=== PATIENT | female | born 1980 | race Caucasian/White ===

== ENCOUNTER 2017-06-27 21:59 | Emergency (ER) | payer OTHER, MEDICAID, SELFPAY ==
[2017-06-27 22:00] VITALS: BP 138/85; PULSE 84; RESP 16; TEMP 36.8; O2SAT 98; BMI 30.9
--- NOTE | 2017-06-27 22:15 | CT_ITS ---
STUDY: CT CERVICAL SPINE WITHOUT CONTRAST REASON FOR EXAM: Female, 37 years old. Head injury RADIATION DOSAGE (If Supplied By Facility): CTDIvol = ( 29.96 ) mGy, DLP = ( 559.21 ) mGycm TECHNIQUE: High resolution transaxial imaging was performed without contrast material. Sagittal and coronal images were reconstructed. Individualized dose optimization techniques were used for this CT. COMPARISON: None FINDINGS: Normal craniovertebral junction. Normal anterior atlantoaxial articulation. Normal odontoid process. There is straightening of the normal cervical lordosis. C2-3: Normal endplates. Normal disc height and morphology. Normal central canal and intervertebral neuroforamina. C3-4: Normal endplates. Normal disc height and morphology. Normal central canal and intervertebral neuroforamina. C4-5: Normal endplates. Normal disc height and morphology. Normal central canal and intervertebral neuroforamina. C5-6: Normal endplates. Normal disc height and morphology. Normal central canal and intervertebral neuroforamina. C6-7: Normal endplates. Normal disc height and morphology. Normal central canal and intervertebral neuroforamina. C7-T1: Normal endplates. Normal disc height and morphology. Normal central canal and intervertebral neuroforamina. The lung apices are clear. The thyroid is within normal limits. CT/Spine Cervical without Contras IMPRESSION: No acute abnormalities are seen in the cervical spine. Electronically Signed: Keesha Gonzalez MD at 22:58 EST Tel Direct: [phone], Service support ,
--- NOTE | 2017-06-27 22:15 | CT_ITS ---
STUDY: CT BRAIN WITHOUT CONTRAST REASON FOR EXAM: Female, 37 years old. Head injury RADIATION DOSAGE (If Supplied By Facility): CTDIvol = ( 44.99 ) mGy, DLP = ( 728.62 ) mGycm TECHNIQUE: Transaxial CT imaging of the brain was performed without administration of intravenous contrast material. Individualized dose optimization techniques were used for this CT. COMPARISON: None. FINDINGS: There is a small soft tissue defect in the right frontal region. The osseous structures are unremarkable. Normal size ventricles and extra-axial spaces for the patient's age. The white matter tracts are unremarkable. The basal ganglia and thalami are unremarkable. No abnormalities are seen in the brainstem. The cerebellum is unremarkable. There is no intracranial hemorrhage. There are no findings of acute ischemia. The visualized sinuses are unremarkable. CT/Brain/Head without Contrast IMPRESSION: No acute intracranial abnormalities. There is a small soft tissue defect in the right frontal region without underlying fracture. Electronically Signed: Keesha Gonzalez MD at 22:55 EST Tel Direct: [phone], Service support ,
--- NOTE | 2017-06-27 22:31 | ED.DCSUM_ITS ---
- ER Visit Summary Date of Service: 06/27/17 Chief Complaint: Fall, head injury History of Present Illness: The patient is a 37 F presents for evaluation mechanical fall occurring 1:30 PM, 8 hours ago. Patient was on top of the steps going to the basement, she remembers tripping, 15 minutes later she awakened. Complains of headache and neck pain. No arm weakness or paresthesias. No anticoagulation medications. The nausea and vomiting ?1 today. Patient does have history of grand mal seizures states she is currently off medications. She denies any seizure activity. No tongue abrasion. There is no incontinence of urine or stools. Denies any back pain, chest pain, abdominal pain. States she feels like her head is underwater, also states she has little balance issues with walking. Physical Examination: General: Alert and oriented ?3, no acute distress HEENT: Normocephalic, contusion left upper forehead, small abrasion with no active bleeding. No hemotympanum. Moist mucosa membranes Neck: supple, no midline tenderness. There is paracervical tenderness. Cardiovascular: Regular rate and rhythm, no murmurs Respiratory: Normal breath sounds, symmetric, no distress Back: No midline tenderness. Abdomen: Soft, nontender, nondistended Extremities: Nontender, no edema, pulses intact ?4 Neuro: no focal neurological deficits. Cranial nerves II through XII intact. Test Results: CT head and neck: No acute process. Soft tissue swelling left forehead. Emergency Department Course and Treatment: Patient head injury, secondary to mechanism and loss of consciousness. CT head and neck was obtained. Negative. Treated with Tylenol and Zofran for symptoms. Discussed concussion precautions and brain rest. She will continue Tylenol follow-up with her PCP if symptoms persist. Treatment Plan: Concussion precautions Disposition: Discharge Impression: 1. Concussion with loss of consciousness 2. Cervical neck strain 3. Forehead contusion This note was generated with [employer] dictation software. It may contain incorrect words, spelling, and punctuation that were not noted in review of the chart prior to signing ED Disposition - Plan for ED Patient: Disposition: Home or Assisted Living Chief Complaint: Head Injury Diagnosis: Concussion with loss of consciousness <= 30 min, Neck strain, Forehead contusion Instructions: ED Concussion, ED Contusion Face Prescriptions: Ondansetron [Zofran Odt] 8 mg PO Q8H PRN PRN #10 PRN Reason: Nausea Referrals: Leena Sena [Primary Care Provider] - 5-7 Days
[2017-06-27] MEDS: Acetaminophen 500 MG Tablet 1000 MG PO (23:41)
[2017-06-27] MEDS: Ondansetron ODT 4 MG Tablet 8 MG PO (23:41)
[2017-06-27 23:42] VITALS: PULSE 70; O2SAT 98
== END 2017-06-27 23:43 | disposition home or self-care (01) ==
PROVIDERS: Emergency Provider Emergency Medicine; Family Provider Family Medicine; PCP Family Medicine
DX: S06.0X1A Concussion with loss of consciousness of 30 minutes or less, initial encounter (principal); S16.1XXA Strain of muscle, fascia and tendon at neck level, initial encounter; S00.83XA Contusion of other part of head, initial encounter; S00.81XA Abrasion of other part of head, initial encounter; R40.2410 Glasgow coma scale score 13-15, unspecified time; G40.409 Other generalized epilepsy and epileptic syndromes, not intractable, without status epilepticus; Z86.69 Personal history of other diseases of the nervous system and sense organs; W19.XXXA Unspecified fall, initial encounter; Y93.9 Activity, unspecified; Y92.9 Unspecified place or not applicable; Z90.89 Acquired absence of other organs; Z90.49 Acquired absence of other specified parts of digestive tract; Z72.0 Tobacco use
CPT/HCPCS: 70450; 72125; 99283

== ENCOUNTER 2017-07-11 20:09 | Emergency (ER) | payer OTHER, MEDICAID, SELFPAY ==
[2017-07-11 20:10] VITALS: BP 161/102; PULSE 117; RESP 24; TEMP 36.1; O2SAT 99; BMI 32.2
--- NOTE | 2017-07-11 20:28 | CT_ITS ---
STUDY: CT BRAIN WITHOUT CONTRAST REASON FOR EXAM: Female, 37 years old. Headache, neck pain. RADIATION DOSAGE (If Supplied By Facility): CTDIvol = ( 44.99 ) mGy, DLP = ( 782.05 ) mGycm TECHNIQUE: Transaxial CT imaging of the brain was performed without administration of intravenous contrast material. Individualized dose optimization techniques were used for this CT. COMPARISON: [address] head FINDINGS: Normal soft tissue structures. Normal calvarium. Normal size ventricles and extra-axial spaces for the patient's age. Normal white matter tracts of the cerebral hemispheres. Normal basal ganglia and thalami. Normal brainstem. Normal cerebellum. There is no intracranial hemorrhage. There are no findings of an acute ischemic infarction. Normal visualized paranasal sinuses. CT/Brain/Head without Contrast IMPRESSION: No evidence of acute intracranial bleed, mass or ischemia. Electronically Signed: Miguel Holley DO at 21:32 EDT , Service support ,
[2017-07-11] MEDS: Ketorolac 30 MG/ML Syringe IV (20:51)
[2017-07-11] MEDS: proCHLORPERazine 10 MG/2 ML Vial IV (20:51)
[2017-07-11] MEDS: 0.9% Normal Saline 1,000 ML 999 ML IV (20:51)
[2017-07-11] MEDS: DiphenhydrAMINE 50 MG/ML Syringe 25 MG IV (20:51)
--- NOTE | 2017-07-11 22:22 | ED.DCSUM_ITS ---
- ER Visit Summary Date of Service: 07/11/17 Chief Complaint: Head and neck pain History of Present Illness: The patient is a 37 F who reports waking yesterday morning with left-sided head pain. Last evening she is complaining of neck pain and now has diffuse headache throughout. She does report blurry vision and seeing colors in her vision. She has photophobia. She reports having intermittent left hand numbness and states that neck pain is worse on the left side. Patient does have a history of migraines but states this is not quite consistent with her normal migraine. She was also seen here in June 27 after fall down a flight of steps and had an head and neck injury that time. Physical Examination: Vital signs are significant for blood pressure 161/102 and heart rate 117. Patient's lying in a darkened room. She appears uncomfortable but no acute distress. Head neck examination reveals no obvious external sign of trauma. She has reproducible tenderness in the musculature on the posterior neck. No significant midline tenderness. Heart is slightly tachycardic and rhythm. Lung sounds are clear. Abdomen is soft nontender. Neuro exam is unremarkable with no focal deficits. Test Results: CT scan of the head is unremarkable. Emergency Department Course and Treatment: Patient is given Toradol, Compazine, Benadryl, and IV fluids. On repeat evaluation she has been sleeping comfortably. She easily awakens and does report significant improvement in her symptoms. She will be discharged home with family at this time. Treatment Plan: [] Disposition: Discharge Impression: Migraine, improved This note was generated with [employer] dictation software. It may contain incorrect words, spelling, and punctuation that were not noted in review of the chart prior to signing ED Disposition - Plan for ED Patient: Chief Complaint: Headache Referrals: Leena Sena [Primary Care Provider] -
--- NOTE | 2017-07-11 22:22 | ED.DEP ---
ED Disposition - Plan for ED Patient: Disposition: Home or Assisted Living Chief Complaint: Headache Instructions: ED Headache Migraine Referrals: Leena Sena [Primary Care Provider] - As Needed
[2017-07-11 22:43] VITALS: BP 101/66; PULSE 74; RESP 16; O2SAT 98
== END 2017-07-11 22:44 | disposition home or self-care (01) ==
PROVIDERS: Emergency Provider Emergency Medicine; Family Provider Family Medicine; PCP Family Medicine
DX: G43.909 Migraine, unspecified, not intractable, without status migrainosus (principal); R20.0 Anesthesia of skin; R20.2 Paresthesia of skin; R50.9 Fever, unspecified; E66.9 Obesity, unspecified; G40.909 Epilepsy, unspecified, not intractable, without status epilepticus; Z72.0 Tobacco use
CPT/HCPCS: 70450; 96361; 96374; 96375; 99284; J7030; A4216

== ENCOUNTER 2017-07-24 06:28 | Emergency (ER) | payer OTHER, MEDICAID, SELFPAY ==
[2017-07-24 06:29] VITALS: BP 122/67; PULSE 73; RESP 18; TEMP 36.8; O2SAT 100; BMI 36.9
--- NOTE | 2017-07-24 06:40 | ED.VISSUMM ---
- ER Visit Summary Date of Service: 07/24/17 Chief Complaint: Unilateral throbbing headache History of Present Illness: The patient is a 37 F who presents with her typical headache. She does complain of photophobia and sonophobia. She also complains of nausea. She denies fever, chills night sweats. She reports double vision. She denies any blurred, change or loss of vision. She denies neck pain or stiffness. She denies chest pain, palpitations or rapid heart rate. She denies difficulty breathing, wheezing, shortness of breath or dyspnea on exertion. GI is positive for nausea otherwise unremarkable. She denies dysuria, frequency, urgency or hematuria. She denies any rash or skin lesions. She denies problems with balance or walking. She denies any motor or sensory deficit. Please read written note. Physical Examination: Vital signs are normal. She is afebrile. Head is atraumatic normocephalic. Pupils are equal round reactive. Extraocular muscles are intact. TMs are pearly white with landmarks noted. Nares patent with no drainage. Posterior pharynx without erythema or exudate. Uvula is midline. There is no dysphonia or dysphasia. Trachea is midline. There is no stridor with auscultation of the neck. Heart is regular without murmur, gallop or rub. S1 and S2 are normal. Lungs are clear to auscultation with good movement of air bilaterally. Abdomen soft nontender. Patient is alert and oriented ?3. Motor is 5 over 5. Sensory is intact. DTRs are symmetric with no clonus or Babinski sign. Cranial 2 through 12 are intact. Cerebellar testing is normal. Patient voices frustration because she cannot take Topamax and her physician is located in [place]. Test Results: None were obtained Emergency Department Course and Treatment: IV was established 30 mg of Toradol, 25 mg Benadryl and 10 mg of Reglan were ordered. I was informed that there is a shortage of Reglan and there is no Reglan available in the hospital. The order with ischemic insult and she was treated with 2 mg of Haldol IV push. Patient was reassessed at 0700. She reports improvement. She received her medications approximately 10-15 minutes ago. Reassess again at 0730. Treatment Plan: To be discharged to home once headache has improved moderate to significantly. Disposition: Pending reevaluation by Dr. Will Morgan at 0730 Impression: Unilateral throbbing headache, migraine This note was generated with [employer] dictation software. It may contain incorrect words, spelling, and punctuation that were not noted in review of the chart prior to signing ED Disposition - Plan for ED Patient: Disposition: Home or Assisted Living Chief Complaint: Headache Instructions: ED Headache Migraine Referrals: Leena Sena [Primary Care Provider] - 3-5 Days Additional Instructions: You need to follow-up with your doctor to discuss treatment plan to prevent migraine headaches.
[2017-07-24] MEDS: 0.9% Normal Saline 1,000 ML 999 ML IV (06:43)
[2017-07-24] MEDS: Haloperidol Lactate 5 MG/ML Vial 2 MG IV (06:43)
[2017-07-24] MEDS: Ketorolac 30 MG/ML Syringe IV (06:44)
[2017-07-24] MEDS: DiphenhydrAMINE 50 MG/ML Syringe 25 MG IV (06:44)
--- NOTE | 2017-07-24 06:52 | NURSING ---
A SECOND TORADOL WAS PULLED OUT OF THE ACCUDOSE THE OTHER DOSE WAS WASTED PLUNGER FELL OUT OF THE SYRINGE AND MEDICATION WAS LOST.
== END 2017-07-24 08:05 | disposition home or self-care (01) ==
PROVIDERS: Emergency Provider Emergency Medicine; Family Provider Family Medicine; PCP Family Medicine
DX: G43.909 Migraine, unspecified, not intractable, without status migrainosus (principal); Z72.0 Tobacco use
CPT/HCPCS: 96361; 96374; 96375; 99284; J7030; A4216

== ENCOUNTER 2017-10-29 17:22 | Emergency (ER) | payer OTHER, MEDICAID, SELFPAY ==
[2017-10-29 17:23] VITALS: BP 120/68; PULSE 83; RESP 14; TEMP 36.4; O2SAT 98; BMI 39.7
--- NOTE | 2017-10-29 18:10 | ED.DCSUM_ITS ---
- ER Visit Summary Date of Service: 10/29/17 Chief Complaint: Headache History of Present Illness: The patient is a 37 F presenting with migraine headache ?4 days. Headache was gradual in onset. She has a history of migraine headaches and seizures. She has been having more frequent seizures as well. She is scheduled to see a new neurologist in November. She is on lamictal for her seizures. She states she also frequently has nosebleeds with her seizures and migraines. No active bleeding currently. No recent trauma. No fever or other complaints. Physical Examination: Vitals are stable. Patient is afebrile. Alert no acute distress. HEENT exam is unremarkable. Neck is supple. No meningismus Lungs are clear and equal bilaterally. Heart is regular rate and rhythm. Abdomen is soft nontender nondistended. Extremities are unremarkable. Skin is warm and dry. No focal neurologic deficit. Remainder of exam is unremarkable. Emergency Department Course and Treatment: Patient was given Compazine, Benadryl IV. CBC, chemistries are unremarkable. Lamictal level was sent and is pending. On repeat evaluation, patient is resting comfortably. She states her headache is much improved. Patient is advised to follow-up with Dr. Jones. She is advised to return to ED for any worsening complaints. Disposition: Discharged home Impression: Migraine headache, seizure disorder This note was generated with [employer] dictation software. It may contain incorrect words, spelling, and punctuation that were not noted in review of the chart prior to signing ED Disposition - Plan for ED Patient: Chief Complaint: Headache Instructions: ED Headache Migraine Referrals: Akshat Angel MD [STAFF PHYSICIAN] - Conrad Jones MD [STAFF PHYSICIAN] - NOT,DEFINED [NON-STAFF] -
[2017-10-29] MEDS: DiphenhydrAMINE 50 MG/ML Syringe 25 MG IV (18:12)
[2017-10-29] MEDS: proCHLORPERazine 10 MG/2 ML Vial IV (18:12)
[2017-10-29] MEDS: 0.9% Normal Saline 1,000 ML 150 ML IV (18:17)
[2017-10-29 18:28] LABS: Absolute Lymphocyte Count 3.34 X10^3/ul (0.83-4.51); Absolute Neutrophil Count 5.4 X10^3/uL (2.0-7.7); Basophil# 0.01 X10^3/uL; Basophil% 0.1 % (0-1); Eosinophil# 0.11 X10^3/uL; Eosinophils% 1.2 % (0-5); Hematocrit 35.6 % (37-47); Hemoglobin 11.3 g/dl (12.0-15.0); Lymphocyte # 3.34 X10^3/ul (4.0); Lymphocyte % 35.8 % (19-41); Mean Corp Hgb Conc 31.7 g/gl (32-36); Mean Corpuscular Hgb 30.4 pg (27.0-32.0); Mean Corpuscular Volume 95.7 fL (81-99); Mean Platelet Vol. 9.8 fl (6.2-12.0); Monocyte# 0.42 X10^3/uL; Monocyte% 4.5 % (0-10); Neutrophil # 5.42 X10^3/uL (2.7-7.7); Neutrophil % 58.2 % (47-70); Platelet Count 297 K/mm3 (150-450); RBC Distribution Width CV 13.3 % (11.6-14.6); RBC Distribution Width SD 46.8 fl (35.1-43.9); Red Blood Count 3.72 M/mm3 (4.2-5.4); White Blood Count 9.3 K/mm3 (4.4-11.0)
[2017-10-29 18:39] LABS: POSITIVE COUNT NO; POSITIVE DIFFERENTIAL NO; POSITIVE MORPHOLOGY NO
[2017-10-29 18:40] LABS: Anion Gap 6 (5-15); BUN 11 mg/dL (7-18); BUN/Creat Ratio 13.4 RATIO (10-20); Calcium,Total 8.6 mg/dL (8.5-10.1); Chloride 111 mmol/L (98-107); Creatinine, Serum 0.82 mg/dL (0.55-1.02); EST Glomerular Filtration Rate 83 mL/min (>60); Est Glom Filt Rate - Afr Amer 100 mL/min (>60); Estimated Creatinine Clearance 76.19 ml/min; Glucose 85 mg/dL (74-106); Potassium 3.8 mmol/L (3.5-5.1); Sodium Level 145 mmol/L (136-145)
--- NOTE | 2017-10-29 19:18 | ED.DEP ---
ED Disposition - Plan for ED Patient: Chief Complaint: Headache Instructions: ED Headache Migraine Referrals: NOT,DEFINED [NON-STAFF] - Conrad Jones MD [STAFF PHYSICIAN] - Akshat Angel MD [STAFF PHYSICIAN] -
[2017-10-29 19:24] VITALS: BP 131/80; BP 132/70; PULSE 80; RESP 14; O2SAT 98
== END 2017-10-29 19:54 | disposition home or self-care (01) ==
LOC: ED 18:17
PROVIDERS: Emergency Provider Emergency Medicine; Family Provider Family Medicine; PCP Family Medicine
DX: G43.909 Migraine, unspecified, not intractable, without status migrainosus (principal); G40.909 Epilepsy, unspecified, not intractable, without status epilepticus; Z79.899 Other long term (current) drug therapy
CPT/HCPCS: 80048; 82542; 85025; 96361; 96374; 96375; 99284; J7030

== ENCOUNTER 2017-10-31 13:55 | Emergency (ER) | payer OTHER, MEDICAID, SELFPAY ==
[2017-10-31 13:56] VITALS: BP 150/83; PULSE 84; RESP 16; TEMP 36.9; O2SAT 98; BMI 32.2
--- NOTE | 2017-10-31 14:18 | EKG12_ITS ---
Test Reason : HEADACHE Blood Pressure : / mmHG Vent. Rate : 071 BPM Atrial Rate : 071 BPM P-R Int : 152 ms QRS Dur : 082 ms QT Int : 392 ms P-R-T Axes : 031 061 053 degrees QTc Int : 425 ms Normal sinus rhythm Normal ECG Confirmed by MAKENZIE SY, CHARLES ([id number]), editor trade journal DAMIEN HORAN ([id number]) on 11/02/2017 2:29:29 PM Referred By: NANCI Confirmed By:CHARLES BANEGAS MD
--- NOTE | 2017-10-31 14:21 | ED.RN ---
NO OLD EKG
[2017-10-31] MEDS: Ketorolac 30 MG/ML Syringe IV (14:27)
[2017-10-31] MEDS: 0.9% Normal Saline 1,000 ML 999 ML IV (14:27)
[2017-10-31] MEDS: Dihydroergotamine 1 MG/ML Ampul IV (15:34)
--- NOTE | 2017-10-31 16:05 | ED.VISSUMM ---
- ER Visit Summary Date of Service: 10/31/17 Chief Complaint: Headache History of Present Illness: The patient is a 37 F presenting for evaluation secondary to headache. Patient has an underlying history of migraines. She reports that over the course last 6 days she has had a persistent migraine. This is consistent with prior headaches, it has been frontal throbbing and has been worse with light exposure. Patient does endorse nausea. Patient was seen in the emergency department for this 2 days ago, she received Compazine and states that she had some improvement of her pain but had some akathisia. Patient denies that she had any recent head injuries fevers neck stiffness or skin rashes. Review of systems otherwise negative. Physical Examination: Vital signs: Within normal limits General: Well-nourished well-developed no acute distress Head: Normocephalic atraumatic, no temporal artery tenderness or vesicular rash noted. No sinus tenderness to percussion. Eyes: PERRLA, EOMI. Direct funduscopy unable to be performed due to photophobia Neck: Supple, no lymphadenopathy, no JVD no meningismus. Negative Brudzinski, Kernig, jolt, and heel strike Cardiovascular: Heart regular rate and rhythm no murmurs Respiratory: Lung sounds clear to auscultation bilaterally no respiratory distress Abdomen: Soft, nontender Extremities: Nontender, no edema Skin: Normal color, no rash, no evidence of petechia Neuro: Alert and oriented ?4, cranial nerves II through XII intact, normal strength, sensation Test Results: EKG demonstrates sinus rhythm at [address] segments normal T waves no evidence of acute ischemia or arrhythmia Emergency Department Course and Treatment: Patient presented with an intractable migraine headache. Initial attempts were made with Toradol and fluids, the patient did not have any sort of improvement. An EKG was normal so the patient was given 1 mg of IV dihydroergotamine. Repeat evaluation at 1600 showed the patient to have almost complete resolution of her headache. She was given a dose of steroids to prevent bounce back of her headache. Patient has very frequent headaches states that she is getting them up to 3 and 4 times a day. I will place the patient on a starting dose of Topamax. She has follow-up coming with a neurologist, she will keep this appointment. Patient was discharged. Disposition: Discharge Impression: 1. Migraine headache with status migrainosus, not intractable This note was generated with [employer] dictation software. It may contain incorrect words, spelling, and punctuation that were not noted in review of the chart prior to signing ED Disposition - Plan for ED Patient: Disposition: Home or Assisted Living Chief Complaint: Headache Diagnosis: Migraine Instructions: ED Headache Migraine Prescriptions: Topiramate [Topamax] 25 mg PO DAILY #30 tab Referrals: Geraldo Nj MD [STAFF PHYSICIAN] - Keep Starla appointment
[2017-10-31 16:16] VITALS: BP 116/71; PULSE 64; RESP 17; O2SAT 97
[2017-10-31] MEDS: Triamcinolone Acetonide 40 MG/ML Vial IM (16:29)
== END 2017-10-31 16:49 | disposition home or self-care (01) ==
PROVIDERS: Emergency Provider Emergency Medicine; Family Provider Family Medicine; PCP Family Medicine
DX: G43.909 Migraine, unspecified, not intractable, without status migrainosus (principal)
CPT/HCPCS: 93005; 96361; 96372; 96374; 96375; 99283; J7030; A4216; J1110

== ENCOUNTER 2017-11-03 08:51 | Emergency (ER) | payer OTHER, MEDICAID, SELFPAY ==
[2017-11-03 08:52] VITALS: BP 129/81; PULSE 73; RESP 16; TEMP 36.6; O2SAT 98; BMI 35.1
--- NOTE | 2017-11-03 09:41 | ED.DCSUM_ITS ---
- ER Visit Summary Date of Service: 11/03/17 Chief Complaint: Sharp throbbing unilateral headache History of Present Illness: The patient is a 37 F who has a history of seizures and migraine headaches presents with a sharp throbbing right-sided headache that is associated with nausea and vomiting. She does report photophobia. She denies fever, chills night sweats. She denies loss of vision or double vision. Denies trouble with speech or swallowing. She denies paresthesia, anesthesia motor weakness upper or lower extremity. She denies problems with balance or walking. She denies any neck stiffness. She is on no anticoagulants. Physical Examination: Vital signs are unremarkable. BMI is 35.1. Head is atraumatic normocephalic. Pupils equal round reactive. Extraocular muscle intact. Sclerae anicteric. Conjunctive is pink. Funduscopic exam reveals no papilledema. TMs normal. Nares patent with no discharge. Uvula is midline without erythema or exudate. Neck is supple. Trachea is midline. Heart is regular without murmur, gallop or rub. S1 and S2 are normal. Lungs are clear to auscultation with good movement of air bilaterally. Patient is alert and oriented ?3. Motor is 5 over 5. Sensory is intact. DTRs are symmetric with no clonus or Babinski sign. Cranial 2 through 12 are intact. Cerebellar testing is normal. Test Results: None were obtained Emergency Department Course and Treatment: IV was established and patient was medicated with 25 mg of Benadryl IV push, 30 mg of Toradol IV push followed by 10 mg of Reglan IV push. Went to evaluate patient's headache at 0935. IV was not placed and she has not received any of her meds. Patient was reassessed at 1013. She reports no improvement. 500 mg of Depakote was ordered. Treatment Plan: Patient was reassessed after Depakote infused. She reports improvement. Disposition: Discharged home in stable and improved condition Impression: Migraine headache This note was generated with [employer] dictation software. It may contain incorrect words, spelling, and punctuation that were not noted in review of the chart prior to signing ED Disposition - Plan for ED Patient: Disposition: Home or Assisted Living Chief Complaint: Headache Referrals: Leena Sena DO [Primary Care Provider] - As Needed Additional Instructions: Contact your insurance carrier to determine local physician on your insurance panel. Keep appointment with Dr. Nj.
[2017-11-03] MEDS: Ketorolac 30 MG/ML Syringe IV (09:53)
[2017-11-03] MEDS: DiphenhydrAMINE 50 MG/ML Syringe 25 MG IV (09:53)
--- NOTE | 2017-11-03 12:13 | ED.VISSUMM ---
- ER Visit Summary Date of Service: 11/03/17 Chief Complaint: [] History of Present Illness: The patient is a 37 F [] Physical Examination: [] Test Results: [] Emergency Department Course and Treatment: [] Treatment Plan: [] Disposition: [] Impression: [] This note was generated with [employer] dictation software. It may contain incorrect words, spelling, and punctuation that were not noted in review of the chart prior to signing ED Disposition - Plan for ED Patient: Disposition: Home or Assisted Living Chief Complaint: Headache Instructions: ED Headache Migraine Referrals: Leena Sena DO [Primary Care Provider] - As Needed Additional Instructions: Contact your insurance carrier to determine local physician on your insurance panel. Keep appointment with Dr. Nj.
--- NOTE | 2017-11-03 12:21 | ED.DCSUM_ITS ---
- ER Visit Summary Date of Service: 11/03/17 Chief Complaint: [] History of Present Illness: The patient is a 37 F [] Physical Examination: [] Test Results: [] Emergency Department Course and Treatment: [] Treatment Plan: [] Disposition: [] Impression: [] This note was generated with [employer] dictation software. It may contain incorrect words, spelling, and punctuation that were not noted in review of the chart prior to signing ED Disposition - Plan for ED Patient: Disposition: Home or Assisted Living Chief Complaint: Headache Instructions: ED Headache Migraine Referrals: Leena Sena DO [Primary Care Provider] - As Needed Additional Instructions: Contact your insurance carrier to determine local physician on your insurance panel. Keep appointment with Dr. Nj.
[2017-11-03 12:24] VITALS: BP 103/74; PULSE 58; RESP 16; O2SAT 100
== END 2017-11-03 12:26 | disposition home or self-care (01) ==
PROVIDERS: Emergency Provider Emergency Medicine; Family Provider Family Medicine; PCP Family Medicine
DX: G43.909 Migraine, unspecified, not intractable, without status migrainosus (principal); G40.909 Epilepsy, unspecified, not intractable, without status epilepticus; Z79.899 Other long term (current) drug therapy
CPT/HCPCS: 96365; 96375; 99284; J7030; A4216

== ENCOUNTER 2017-12-20 10:04 | Emergency (ER) | payer OTHER, MEDICAID, SELFPAY ==
[2017-12-20 10:05] VITALS: BP 133/76; PULSE 71; RESP 18; TEMP 36.1; O2SAT 98; BMI 41.5
--- NOTE | 2017-12-20 10:14 | ED.RN ---
PT SITTING IN CHAIR. STATES I AM GOING TO HAVE A SEIZURE. WHEN ASKED PT ABLE TO SIT SELF ON FLOOR. PT MOVED TO ROOM
--- NOTE | 2017-12-20 10:23 | ED.DCSUM_ITS ---
- ER Visit Summary Date of Service: 12/20/17 Chief Complaint: Migraine headache History of Present Illness: The patient is a 37 F history of seizures and migraine headaches. States she has had a migraine headache since yesterday. Associated with nausea. No vomiting. No diarrhea. Positive for photo and sonophobia. No fever. No sinusitis. No trauma or any blood thinners. Patient 's had headaches like this before. She describes as migraine as left-sided headache behind her left eye and top of her head. She denies any weakness or visual change. Physical Examination: Middle-aged female vital signs are stable afebrile. She does not look septic or toxic. She is in no acute distress. She does have her eyes covered with a towel. HEENT exam unremarkable. Neck nontender no lymphadenopathy. Pupils are round reactive light. Extra motions are intact. Normal speech. No facial droop. No meningismus able to touch her chin to chest. Lungs clear to auscultation bilaterally. Heart regular rhythm no murmur. Abdomen is soft and nontender. Normal bowel sounds. No peritoneal signs. Moving all 4 extremities. Neurovascular intact. Neurological exam is normal. No deficits. 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 Fingertip to nose within normal limits. Dorsi and plantar flexion intact. Neuro exam within normal limits. Test Results: None Emergency Department Course and Treatment: Patient treated with 1 L normal saline IV fluids with IV Toradol, Phenergan and Benadryl. Repeat exam neurologic exam remains normal is resolving. She feels comfortable being discharged home. Treatment Plan: Discharged to home. Disposition: Discharge Impression: Acute migraine headache This note was generated with [employer] dictation software. It may contain incorrect words, spelling, and punctuation that were not noted in review of the chart prior to signing ED Disposition - Plan for ED Patient: Disposition: Home or Assisted Living Chief Complaint: Headache Instructions: ED Headache Migraine Referrals: Leena Sena DO [Primary Care Provider] - As Needed Additional Instructions: Money of fluids and rest. Tylenol and Motrin for headaches. Follow-up your primary care physician or provider as needed.
[2017-12-20] MEDS: 0.9% Normal Saline 1,000 ML 1000 ML IV (10:30)
[2017-12-20] MEDS: DiphenhydrAMINE 50 MG/ML Syringe 25 MG IV (10:31)
[2017-12-20] MEDS: Ketorolac 30 MG/ML Syringe IV (10:31)
[2017-12-20] MEDS: proMETHazine 25 MG/ML Syringe 12.5 MG IV (10:31)
--- NOTE | 2017-12-20 11:14 | ED.DEP ---
ED Disposition - Plan for ED Patient: Disposition: Home or Assisted Living Chief Complaint: Headache Instructions: ED Headache Migraine Referrals: Leena Sena DO [Primary Care Provider] - As Needed Additional Instructions: Plenty of fluids and rest. Tylenol and Motrin for headaches. Follow-up your primary care physician or provider as needed.
[2017-12-20 11:19] VITALS: BP 132/78; PULSE 79; RESP 14; O2SAT 99
== END 2017-12-20 11:22 | disposition home or self-care (01) ==
LOC: ED 10:42
PROVIDERS: Emergency Provider Emergency Medicine; Family Provider Family Medicine; PCP Family Medicine
DX: G43.909 Migraine, unspecified, not intractable, without status migrainosus (principal); G40.909 Epilepsy, unspecified, not intractable, without status epilepticus; Z90.49 Acquired absence of other specified parts of digestive tract; Z79.899 Other long term (current) drug therapy; F17.200 Nicotine dependence, unspecified, uncomplicated
CPT/HCPCS: 96361; 96374; 96375; 99283; J7030; A4216

== ENCOUNTER 2018-01-03 10:34 | Emergency (ER) | payer OTHER, MEDICAID, SELFPAY ==
[2018-01-03 10:34] VITALS: BP 151/91; PULSE 90; RESP 16; TEMP 36.9; O2SAT 97; BMI 38.5
[2018-01-03] MEDS: 0.9% Normal Saline 1,000 ML 999 ML IV (11:09)
[2018-01-03] MEDS: Dihydroergotamine 1 MG/ML Ampul IV (11:09)
--- NOTE | 2018-01-03 12:01 | ED.DEP ---
ED Disposition - Plan for ED Patient: Chief Complaint: Seizure Instructions: ED Cephalgia Unspecified Referrals: Leena Sena DO [Primary Care Provider] -
--- NOTE | 2018-01-03 12:03 | ED.VISSUMM ---
- ER Visit Summary Date of Service: 01/03/18 Chief Complaint: Headache History of Present Illness: The patient is a 37 F presenting with headache that started 3 days ago. Headache was gradual in onset. Similar to her previous migraine headaches. She states she had 3 seizures yesterday and one seizure today. She states it is not uncommon for her to have seizures associated with her migraine headache. She is on Lamictal and Topamax. She sees Dr. Nj. She denies fever. Denies nausea or vomiting. Denies recent trauma. Denies other complaints. Physical Examination: Vitals are stable. Patient is afebrile. Alert no acute distress. HEENT exam is unremarkable. Neck is supple. Lungs are clear and equal bilaterally. Heart is regular rate and rhythm. Abdomen is soft nontender nondistended. Extremities are unremarkable. Skin is warm and dry. No focal neurologic deficit. Remainder of exam is unremarkable. Emergency Department Course and Treatment: Patient is given IV fluids, DHE. She has improvement of her headache. She will follow-up with her neurologist. She is advised to return to the ED for any worsening complaints Disposition: Discharge home Impression: Headache, seizure, history of seizure disorder This note was generated with [employer] dictation software. It may contain incorrect words, spelling, and punctuation that were not noted in review of the chart prior to signing ED Disposition - Plan for ED Patient: Disposition: Home or Assisted Living Chief Complaint: Seizure Instructions: ED Cephalgia Unspecified Referrals: Leena Sena DO [Primary Care Provider] -
[2018-01-03 12:17] VITALS: BP 108/62; PULSE 59; RESP 16; O2SAT 100
== END 2018-01-03 12:19 | disposition home or self-care (01) ==
LOC: ED 11:35
PROVIDERS: Emergency Provider Emergency Medicine; Family Provider Family Medicine; PCP Family Medicine
DX: R51 Headache (principal); G40.909 Epilepsy, unspecified, not intractable, without status epilepticus; G43.909 Migraine, unspecified, not intractable, without status migrainosus; Z79.899 Other long term (current) drug therapy
CPT/HCPCS: 96361; 96374; 99284; J7030; J1110

== ENCOUNTER 2018-01-15 16:35 | Emergency (ER) | payer OTHER, MEDICAID, SELFPAY ==
[2018-01-15 16:36] VITALS: BP 121/80; PULSE 91; RESP 16; TEMP 37; O2SAT 96; BMI 31.2
--- NOTE | 2018-01-15 16:56 | CT_ITS ---
STUDY: CT BRAIN WITHOUT CONTRAST REASON FOR EXAM: Female, 37 years old. Head injury seizures RADIATION DOSAGE (If Supplied By Facility): CTDIvol = ( 44.99 ) mGy, DLP = ( 779.24 ) mGycm TECHNIQUE: Transaxial CT imaging of the brain was performed without administration of intravenous contrast material. Individualized dose optimization techniques were used for this CT. COMPARISON: July 11, 2017 CT scan head FINDINGS: There is left frontal soft tissue swelling. Normal calvarium. Normal size ventricles and extra-axial spaces for the patient's age. Normal white matter tracts of the cerebral hemispheres. Normal basal ganglia and thalami. Normal brainstem. Normal cerebellum. There is no intracranial hemorrhage. There are no findings of an acute ischemic infarction. Normal visualized paranasal sinuses. CT/Brain/Head without Contrast IMPRESSION: Left frontal soft tissue swelling. No visualized evidence of acute hemorrhage infarct or edema. No evidence of an acute fracture. Electronically Signed: Karine Chu MD at 17:54 EDT Tel , Service support ,
[2018-01-15] MEDS: SUMAtriptan 6 MG/0.5 ML Vial SC (17:08)
[2018-01-15] MEDS: DiphenhydrAMINE 50 MG/ML Syringe IV (18:18)
[2018-01-15] MEDS: proCHLORPERazine 10 MG/2 ML Vial IV (18:18)
[2018-01-15 18:54] VITALS: BP 116/61; PULSE 69; RESP 14; O2SAT 98
--- NOTE | 2018-01-15 19:15 | ED.DCSUM_ITS ---
- ER Visit Summary Date of Service: 01/15/18 Chief Complaint: Headache History of Present Illness: The patient is a 37 F with a headache that started yesterday. It feels like a sledgehammer hit her right frontal scalp. Worse with light and sound. Worse than prior migraines. She has a history of seizures as well and takes Topamax and Lamictal. She had a seizure at work today and fell. She was seen at an outside hospital and received Toradol and was discharged. She presents for continued pain. She has taken Imitrex in the past, and it seems to help with her migraines. Denies any fevers. Does have some photophobia and blurred vision on the right. No other neurologic symptoms. She is a smoker. Physical Examination: Vital signs unremarkable. Afebrile. Patient appears very uncomfortable. Vision grossly intact. Pupils normal. Extraocular motion normal. HEENT exam unremarkable. Neck nontender. Heart regular. Lungs clear. Skin normal in color. No focal or lateralizing neurologic abnormalities grossly. Test Results: CT head was performed because of her fall. This showed frontal soft tissue swelling but no acute intracranial pathology. Emergency Department Course and Treatment: Patient was initially treated with Imitrex as this has worked in the past. She had no improvement. Patient had a 15 second shaking episode which was witnessed by nursing. Resolved spontaneously. No postictal state. No tongue biting. No incontinence. Patient says this is worse because her headache is not improved. She was agreeable to Compazine and Benadryl. On reevaluation, symptoms have resolved. Headache has resolved. No further seizures. Patient discloses that she is out of Topamax. Will refill this. Seizure precautions issued. Follow-up with your doctor tomorrow. Return for any new or worsening issues. Treatment Plan: As above Disposition: Discharged Impression: 1. Headache This note was generated with [employer] dictation software. It may contain incorrect words, spelling, and punctuation that were not noted in review of the chart prior to signing ED Disposition - Plan for ED Patient: Chief Complaint: Seizure Referrals: Leena Sena DO [Primary Care Provider] -
--- NOTE | 2018-01-15 19:15 | ED.DEP ---
ED Disposition - Plan for ED Patient: Chief Complaint: Seizure Instructions: ED Seizure Recurrent Prescriptions: Topiramate [Topamax] 50 mg PO DAILY #30 tab Referrals: Leena Sena DO [Primary Care Provider] -
[2018-01-15 19:30] VITALS: BP 114/80; PULSE 71; RESP 14; O2SAT 99
== END 2018-01-15 19:31 | disposition home or self-care (01) ==
PROVIDERS: Emergency Provider Emergency Medicine; Family Provider Family Medicine; PCP Family Medicine
DX: R51 Headache (principal); G40.909 Epilepsy, unspecified, not intractable, without status epilepticus; G43.909 Migraine, unspecified, not intractable, without status migrainosus; W19.XXXA Unspecified fall, initial encounter; Y93.9 Activity, unspecified; Y92.9 Unspecified place or not applicable; Z90.49 Acquired absence of other specified parts of digestive tract; F17.210 Nicotine dependence, cigarettes, uncomplicated; Z79.899 Other long term (current) drug therapy
CPT/HCPCS: 70450; 96372; 96374; 96375; 99282; A4216; J3030

== ENCOUNTER 2018-02-01 13:18 | Emergency (ER) | payer OTHER, MEDICAID, SELFPAY ==
[2018-02-01 13:20] VITALS: BP 153/84; PULSE 124; RESP 18; TEMP 36.6; O2SAT 99; BMI 31.2
--- NOTE | 2018-02-01 13:39 | ED.DCSUM_ITS ---
- ER Visit Summary Date of Service: 02/01/18 Chief Complaint: [] Body aches headache sore throat vomiting History of Present Illness: The patient is a 37 F [] indicates she has really no past history she basically reports that one her partner has tonsillar exudates and concern for strep throat symptoms, her son who is school aged, has had cough runny nose and a few days ago came home with a note from school saying 1 of the children was diagnosed with viral meningitis. She indicates she has had a fever that broke with antipyretics, however she has had protracted vomiting and body aches and a headache she denies change in vision has a slight sore throat her bowel bladder habits been normal. She did express the possible concern for viral meningitis which she herself has never had, she denies Physical Examination: [] Normal range her heart rates about 120, is resting comfortably in a brightly lit room there is no photophobia her neck is very supple complains of diffuse headache and body ache her nose is congested her throat is slightly red again her neck is very supple no meningismus the lungs are clear the heart tones are normal the abdomen is soft nontender her BMI is 31, there is no skin lesions or skin rashes she has full range of motion is no Kernig's or Brudzinski's her joints are unremarkable her mental status neurologic exam unremarkable Test Results: [] Emergency Department Course and Treatment: [] At this time of explained to the patient that the differential would certainly include viral meningitis strep pharyngitis viral illness with the body aches and the vomiting her abdomen is absolutely soft, nontender, there is nothing to suggest pancreatitis or any specific GI ailment Explained to we could do a spinal tap to evaluate her for meningitis but she declined that, she did agree to IV fluids and screening labs Screening labs are generally unremarkable the white count is normal, strep screen negative, UA shows signs of contamination on reevaluation she has had IV fluids she is feeling much better she is taking p.o. fluids without vomiting ice cream she feels well she wants to go home, she will follow with her family doctors in the next 2 days for all the above she will take Tylenol Motrin for the body aches and return for change in symptoms Treatment Plan: [] Disposition: [] Home stable Impression: [] URI with fever body ache headache improved This note was generated with [employer] software. It may contain incorrect words, spelling, and punctuation that were not noted in review of the chart prior to signing ED Disposition - Plan for ED Patient: Chief Complaint: Other, Pain/Inj Referrals: Leena Sena DO [NON-STAFF] -
[2018-02-01] MEDS: 0.9% Normal Saline 1,000 ML 1000 ML IV ×2 (14:07)
[2018-02-01] MEDS: Ondansetron 4 MG/2 ML Vial IV (14:07)
[2018-02-01] MEDS: morphine 8 MG/ML Syringe IV (14:07)
[2018-02-01 14:16] LABS: Red Blood Cells-Urine 0 SEEN /hpf (0-5)
[2018-02-01 14:18] LABS: Color, Urine Yellow (Yellow); Glucose, Dipstick Normal (Normal); Ketone-Dipstick Negative (Negative); Leukocyte Esterase-Dipstick 25 /ul (Negative); Nitrite-Dipstick Negative (Negative); Occult Blood-Urine 10 /ul (Negative); Protein-Dipstick 15 mg/dl (Negative); Urine Bilirubin Dipstick Negative (Negative); Urine Clarity Cloudy (Clear); Urine Urobilinogen 1 mg/dl (Normal)
[2018-02-01 14:19] LABS: Absolute Lymphocyte Count 2.49 X10^3/ul (0.83-4.51); Absolute Neutrophil Count 7.6 X10^3/uL (2.0-7.7); Basophil# 0.02 X10^3/uL; Basophil% 0.2 % (0-1); Eosinophil# 0.05 X10^3/uL; Eosinophils% 0.5 % (0-5); Hematocrit 36.4 % (37-47); Hemoglobin 11.9 g/dl (12.0-15.0); Lymphocyte # 2.49 X10^3/ul (4.0); Lymphocyte % 23.1 % (19-41); Mean Corp Hgb Conc 32.7 g/gl (32-36); Mean Corpuscular Volume 94.8 fL (81-99); Mean Platelet Vol. 10.1 fl (6.2-12.0); Monocyte# 0.63 X10^3/uL; Monocyte% 5.8 % (0-10); Neutrophil # 7.55 X10^3/uL (2.7-7.7); Neutrophil % 70.1 % (47-70); Platelet Count 325 K/mm3 (150-450); RBC Distribution Width CV 13.6 % (11.6-14.6); RBC Distribution Width SD 46.6 fl (35.1-43.9); Red Blood Count 3.84 M/mm3 (4.2-5.4); White Blood Count 10.8 K/mm3 (4.4-11.0)
[2018-02-01 14:20] LABS: POSITIVE COUNT NO; POSITIVE DIFFERENTIAL NO; POSITIVE MORPHOLOGY NO
[2018-02-01 14:23] LABS: White Blood Cells 0-5 SEEN /hpf (0-5)
[2018-02-01 14:24] LABS: Bacteria 2+ /hpf (None Seen); Mucous, Urine 1+ /hpf (<or=2+); Squamous Epithelial Cells - UA 10-25 SEEN /hpf (5-10)
[2018-02-01 14:35] LABS: Pregnancy, Serum, hCG Quali. NEGATIVE Negative (0-9 Nonpreg)
[2018-02-01 14:36] LABS: AST(SGOT) 41 U/L (15-37); Alanine Aminotransfer ALT/SGPT 60 U/L (13-56); Albumin, Serum 3.6 g/dL (3.2-5.0); Alkaline Phosphatase 100 U/L (45-117); Anion Gap 6 (5-15); BUN 11 mg/dL (7-18); BUN/Creat Ratio 10.6 RATIO (10-20); Bilirubin, Direct 0.09 mg/dL (0.00-0.30); Calcium,Total 9.1 mg/dL (8.5-10.1); Chloride 110 mmol/L (98-107); Creatinine, Serum 1.04 mg/dL (0.55-1.02); EST Glomerular Filtration Rate 63 mL/min (>60); Est Glom Filt Rate - Afr Amer 76 mL/min (>60); Estimated Creatinine Clearance 62.71 ml/min; Globulin 4.8 g/dL (2.2-4.2); Glucose 76 mg/dL (74-106); Lipase 93 U/L (73-393); Potassium 3.8 mmol/L (3.5-5.1); Protein, Total 8.4 g/dL (6.4-8.2); Sodium Level 141 mmol/L (136-145)
[2018-02-01 16:40] VITALS: BP 135/85; PULSE 85; RESP 16; O2SAT 98
--- NOTE | 2018-02-01 16:58 | ED.DEP ---
ED Disposition - Plan for ED Patient: Chief Complaint: Other, Pain/Inj Instructions: ED Upper Resp Infec No Abx Tx Referrals: Leena Sena DO [NON-STAFF] -
[2018-02-01 17:14] VITALS: BP 123/70; PULSE 73; RESP 16; O2SAT 100
== END 2018-02-01 17:15 | disposition home or self-care (01) ==
PROVIDERS: Emergency Provider Emergency Medicine
DX: J06.9 Acute upper respiratory infection, unspecified (principal); R50.9 Fever, unspecified; M79.10 Myalgia, unspecified site; R51 Headache
CPT/HCPCS: 80048; 80076; 81001; 83690; 84703; 85025; 87880; 96361; 96374; 96375; 99282; J7030; A4216; J2405

== ENCOUNTER 2018-02-20 12:02 | Emergency (ER) | payer OTHER, MEDICAID, SELFPAY ==
[2018-02-20 12:04] VITALS: BP 129/77; PULSE 111; RESP 18; TEMP 36.6; O2SAT 98; BMI 31.2
--- NOTE | 2018-02-20 12:26 | RAD_ITS ---
STUDY: X-RAY - LEFT FOOT CLINICAL: Female, 37 years old. Left foot and left ankle pain following a fall. TECHNIQUE: 3 view(s) of the foot. COMPARISON: None. FINDINGS: There is a plantar calcaneal spur. Normal visualized subtalar, talonavicular, calcaneocuboid, tarsal and tarsometatarsal articulations. Normal metatarsi. Normal metatarsophalangeal joint of the great toe. Normal tibial and fibular sesamoid bones. Normal interphalangeal joint of the great toe. Normal phalanges of the great toe. Normal second through fifth metatarsophalangeal joints. Normal interphalangeal joints and phalanges of the lesser toes. The soft tissue structures are unremarkable. RAD/Foot min 3 Views IMPRESSION: Plantar spur. No acute abnormality seen. Electronically Signed: Jose Alejandro Coronado MD at 13:17 EDT Tel [phone], Service support ,
--- NOTE | 2018-02-20 12:26 | RAD_ITS ---
STUDY: X-RAY - LEFT ANKLE REASON FOR EXAM: Female, 37 years old. Medial pain following a fall. TECHNIQUE: 3 view(s) of the ankle. COMPARISON: None. FINDINGS: Normal visualized distal tibia and fibula. Normal medial and lateral malleoli. Normal tibiotalar articulation and ankle mortise. Tiny calcaneal spurs. The visualized subtalar, talonavicular, calcaneocuboid and tarsal articulations are normal. Mild soft tissue swelling. RAD/Ankle min 3 Views IMPRESSION: Calcaneal spurs. Mild degree of soft tissue swelling. Electronically Signed: Jose Alejandro Coronado MD at 13:18 EDT Tel [phone], Service support ,
--- NOTE | 2018-02-20 13:02 | ED.VISSUMM ---
- ER Visit Summary Date of Service: 02/20/18 Chief Complaint: Left ankle injury History of Present Illness: The patient is a 17 M who states that yesterday she was on the stairs and sustained an inversion injury. She states she has been taking it easy since that time but notes continued pain lateral malleolus region. No Kurt wrap. Physical Examination: Afebrile vital signs stable There is swelling over the lateral malleolus. Tenderness over the fifth metatarsal. No fibular head tenderness. No obvious deformity. Neurovascular intact. Negative Diaz's test. Test Results: X-rays of the foot and ankle on the left side were obtained. These were negative for fractures Emergency Department Course and Treatment: Placed in air splint. Crutches as needed for pain. Ibuprofen and ice. Follow-up primary care physician 10-14 days. Impression: 1. Left ankle sprain This note was generated with [employer] dictation software. It may contain incorrect words, spelling, and punctuation that were not noted in review of the chart prior to signing ED Disposition - Plan for ED Patient: Disposition: Home or Assisted Living Chief Complaint: Lower Extremity Injury Instructions: ED Sprain Ankle W X Ray Prescriptions: Ibuprofen [Motrin] 800 mg PO TID PRN PRN #20 tab PRN Reason: Pain Referrals: James Rodriguez DO [NON CLINICAL AFFILIATE] - 10-14 Days if not better
== END 2018-02-20 13:57 | disposition home or self-care (01) ==
PROVIDERS: Emergency Provider Emergency Medicine
DX: S93.402A Sprain of unspecified ligament of left ankle, initial encounter (principal); X50.1XXA Overexertion from prolonged static or awkward postures, initial encounter; Y93.9 Activity, unspecified; Y92.9 Unspecified place or not applicable; E66.9 Obesity, unspecified
CPT/HCPCS: 73610; 73630; 99284

== ENCOUNTER 2018-03-03 13:48 | Emergency (ER) | payer OTHER, MEDICAID, SELFPAY ==
[2018-03-03 13:49] VITALS: BP 138/97; PULSE 98; RESP 14; TEMP 36.6; O2SAT 97; BMI 31.2
--- NOTE | 2018-03-03 13:56 | ED.RN ---
pt accidentially to sumitriptan
--- NOTE | 2018-03-03 14:14 | RAD_ITS ---
STUDY: X-RAY CHEST REASON FOR EXAM: Female, 37 years old. Chest heaviness. TECHNIQUE: Single frontal view of the chest. COMPARISON: None. FINDINGS: The lungs are clear and expanded. There is no demonstrated pleural abnormality. Normal size heart. Normal mediastinum and fadia. Normal visualized pulmonary arteries. Normal visualized aortic arch and descending thoracic aorta. Normal visualized thoracic spine. Normal visualized ribs, clavicles, and shoulders. There is no demonstrated abnormality of the visualized soft tissue structures of the upper abdomen. RAD/Chest 1 View (Portable) IMPRESSION: Normal x-ray examination of the chest. Electronically Signed: Rinku Gotti MD at 14:52 EDT , Service support ,
--- NOTE | 2018-03-03 14:14 | EKG12_ITS ---
Test Reason : CP Blood Pressure : / mmHG Vent. Rate : 090 BPM Atrial Rate : 090 BPM P-R Int : 162 ms QRS Dur : 084 ms QT Int : 340 ms P-R-T Axes : 053 056 055 degrees QTc Int : 415 ms Normal sinus rhythm Normal ECG Confirmed by MAKENZIE SY, CHARLES ([id number]), greeting card editor DAMIEN HORAN ([id number]) on 03/05/2018 3:41:44 PM Referred By: SG/GREG Confirmed By:CHARLES BANEGAS MD
[2018-03-03] MEDS: LORazepam 2 MG/ML Syringe 1 MG IV ×2 (14:20→17:05)
[2018-03-03] MEDS: Aspirin 81 MG TAB.CHEW 324 MG PO (14:20)
[2018-03-03 14:24] LABS: Absolute Lymphocyte Count 3.01 X10^3/ul (0.83-4.51); Absolute Neutrophil Count 7.1 X10^3/uL (2.0-7.7); Basophil# 0.03 X10^3/uL; Basophil% 0.3 % (0-1); Eosinophils% 0.9 % (0-5); Hematocrit 39.3 % (37-47); Lymphocyte # 3.01 X10^3/ul (4.0); Lymphocyte % 27.6 % (19-41); Mean Corp Hgb Conc 33.1 g/gl (32-36); Mean Corpuscular Hgb 31.3 pg (27.0-32.0); Mean Corpuscular Volume 94.7 fL (81-99); Mean Platelet Vol. 10.2 fl (6.2-12.0); Monocyte# 0.59 X10^3/uL; Monocyte% 5.4 % (0-10); Neutrophil # 7.13 X10^3/uL (2.7-7.7); Neutrophil % 65.3 % (47-70); POSITIVE COUNT NO; POSITIVE DIFFERENTIAL NO; POSITIVE MORPHOLOGY NO; Platelet Count 348 K/mm3 (150-450); RBC Distribution Width CV 13.5 % (11.6-14.6); RBC Distribution Width SD 44.6 fl (35.1-43.9); Red Blood Count 4.15 M/mm3 (4.2-5.4); White Blood Count 10.9 K/mm3 (4.4-11.0)
[2018-03-03 14:35] LABS: Anion Gap 7 (5-15); BUN 7 mg/dL (7-18); BUN/Creat Ratio 7.9 RATIO (10-20); Calcium,Total 8.9 mg/dL (8.5-10.1); Chloride 108 mmol/L (98-107); Creatinine, Serum 0.89 mg/dL (0.55-1.02); EST Glomerular Filtration Rate 75 mL/min (>60); Est Glom Filt Rate - Afr Amer 91 mL/min (>60); Estimated Creatinine Clearance 73.28 ml/min; Glucose 79 mg/dL (74-106); Potassium 3.4 mmol/L (3.5-5.1); Sodium Level 138 mmol/L (136-145)
[2018-03-03 14:50] LABS: D-Dimer Quantitative (DVT/PE) 0.66 FEU/ug/m (0.27-0.49)
--- NOTE | 2018-03-03 14:51 | CT_ITS ---
STUDY: CTA CHEST REASON FOR EXAM: Female, 37 years old. Chest pain RADIATION DOSAGE (If Supplied By Facility): CTDIvol = ( 8.25 ) mGy, DLP = ( 664.27 ) mGycm TECHNIQUE: The examination was performed with the intravenous administration of 100ML ml of Isovue 370 contrast material. Post-processing of the angiographic images was performed, with multiplanar reformation and 3D reconstruction. Individualized dose optimization techniques were used for this CT. COMPARISON: Chest x-ray earlier today FINDINGS: Normal enhancement of the main pulmonary artery and right and left pulmonary arteries. Normal enhancement of the bilateral peripheral pulmonary arteries. There is no demonstrated pulmonary embolism. Normal thoracic aorta and visualized great vessels. There is no demonstrated aortic dissection. Normal heart and pericardium. Normal mediastinum. Normal hilar regions. Normal visualized trachea and bronchi. The lungs are well expanded. Normal pulmonary parenchyma. Normal pleura. Normal chest wall structures. Normal osseous structures. Normal visualized upper abdomen. CT/CTA Chest W/WO Contrast IMPRESSION: Normal CTA chest examination, without a demonstrated pulmonary embolism or arterial dissection. Electronically Signed: Abhilash Morrow DO at 16:28 EDT Tel , Service support ,
[2018-03-03 16:13] VITALS: BP 126/81; PULSE 82; RESP 14; O2SAT 99
--- NOTE | 2018-03-03 16:32 | ED.DCSUM_ITS ---
- ER Visit Summary Date of Service: 03/03/18 Chief Complaint: [Chest pain History of Present Illness: The patient is a 37 F [presents the emergency department complaint of chest pain that started about 20 minutes ago. Patient describes a heaviness and tightness in her chest. Patient states that she was going to take her medication today and accidentally grabbed her partner's medication which was next to hers and she accidentally ingested 50 mg of sumatriptan hand patient denies any shortness of breath currently. Denies any nausea or vomiting. Patient does have a history of some anxiety. Patient has a seizure disorder. Patient has a history of migraines. Patient does state that she had recent travel I believe to [place] in January. Patient denies any fever or recent illness. She denies any hemoptysis.] Physical Examination: [HEENT-PERRLA, EOMI. Cranial nerves II through XII grossly intact. TMs clear. Mucous membranes moist. No adenopathy. Cardiovascular-regular rate and rhythm without murmur or ectopy Lungs-clear to auscultation, chest wall stable without crepitus or subcu emphysema Abdomen-normoactive bowel sounds, soft, nontender, no rebound or rigidity, no peritoneal signs. Extremities-intact ?4, normal range of motion, normal pulses, atraumatic] Test Results: [EKG obtained arrival shows sinus rhythm with a ventricular rate of 90 bpm. CBC with differential is normal. Chemistries were normal. Troponin was less than 0.015. D-dimer obtained was elevated 0.66. CT of the chest obtained was negative for PE or dissection.] Emergency Department Course and Treatment: [Patient was medicated with Ativan 1 mg IV and also initially on arrival she did receive 4 baby aspirin.] Treatment Plan: [Patient I do not feel is having acute coronary syndrome. Her TOSIN risk score is a 0. I suspect likely patient's chest pain related to the summa triptan ingestion and possibly some anxiety as well.] Disposition: [Discharged home in stable condition] Impression: [Chest pain-noncardiac Medication side effect] This note was generated with [employer] software. It may contain incorrect words, spelling, and punctuation that were not noted in review of the chart prior to signing ED Disposition - Plan for ED Patient: Chief Complaint: Chest Pain Referrals: Care Physician,No Primary [Primary Care Provider] -
--- NOTE | 2018-03-03 16:32 | ED.DEP ---
ED Disposition - Plan for ED Patient: Chief Complaint: Chest Pain Instructions: ED Chest Pain Atypical Unkn Cause, ED Drug React Adverse Other Referrals: Care Physician,No Primary [Primary Care Provider] - Jay Lentz MD [STAFF PHYSICIAN] - As Needed
--- NOTE | 2018-03-03 16:56 | ED.RN ---
amy Rn went to DC pt. pt began sobing and complaining of CP. RN informed physician and went to see pt. pt being given 1 mg Ativan.
== END 2018-03-03 17:22 | disposition home or self-care (01) ==
LOC: ED 14:40
PROVIDERS: Emergency Provider Emergency Medicine
DX: R07.89 Other chest pain (principal); T39.8X5A Adverse effect of other nonopioid analgesics and antipyretics, not elsewhere classified, initial encounter; Y92.9 Unspecified place or not applicable; R79.89 Other specified abnormal findings of blood chemistry; G43.909 Migraine, unspecified, not intractable, without status migrainosus; G40.909 Epilepsy, unspecified, not intractable, without status epilepticus; F41.9 Anxiety disorder, unspecified; Z90.49 Acquired absence of other specified parts of digestive tract; Z79.899 Other long term (current) drug therapy; Z72.0 Tobacco use
CPT/HCPCS: 71045; 71275; 80048; 84484; 85025; 85379; 93005; 96374; 96376; 99285; Q9967; A4216

== ENCOUNTER 2018-04-27 05:17 | Emergency (ER) | payer OTHER, MEDICAID, SELFPAY ==
[2018-04-27 05:19] VITALS: BP 122/64; PULSE 89; RESP 17; TEMP 36.7; O2SAT 100; BMI 35.6
[2018-04-27] MEDS: proMETHazine 25 MG/ML Syringe 12.5 MG IV (05:43)
[2018-04-27] MEDS: DiphenhydrAMINE 50 MG/ML Syringe 25 MG IV (05:43)
[2018-04-27] MEDS: 0.9% Normal Saline 1,000 ML 999 ML IV (05:43)
[2018-04-27] MEDS: Ketorolac 30 MG/ML Syringe IV (05:43)
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
[2018-04-27 07:34] VITALS: BP 104/65; PULSE 88; RESP 15; O2SAT 99
[2018-04-27 09:41] VITALS: BP 109/59; PULSE 67; RESP 14; TEMP 36.7; O2SAT 98
== END 2018-04-27 09:44 | disposition home or self-care (01) ==
PROVIDERS: Emergency Provider Emergency Medicine
DX: G43.909 Migraine, unspecified, not intractable, without status migrainosus (principal); G40.909 Epilepsy, unspecified, not intractable, without status epilepticus; K21.9 Gastro-esophageal reflux disease without esophagitis; Z72.820 Sleep deprivation; Z79.899 Other long term (current) drug therapy
CPT/HCPCS: 96361; 96365; 96366; 96374; 96375; 99284; J7030; A4216

== ENCOUNTER 2018-05-14 19:42 | Emergency (ER) | payer BC, MEDICAID, SELFPAY ==
[2018-05-14 19:42] VITALS: BP 149/82; PULSE 78; RESP 16; TEMP 36.2; O2SAT 99; BMI 39.0
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
--- NOTE | 2018-05-14 20:39 | ED.VISSUMM ---
- ER Visit Summary Date of Service: 05/14/18 Chief Complaint: Fall History of Present Illness: The patient is a 37 F presenting after fall. Patient states last night she slipped on ice and fell. She caught herself with her right hand. She did not hit her head or lose consciousness. She complains of persistent right hand pain today. She tried ibuprofen at home. Denies other injuries. She is right-handed. Physical Examination: Vitals are stable. Patient is afebrile. Alert no acute distress. HEENT exam is unremarkable. Neck is nontender Lungs are clear and equal bilaterally. Heart is regular rate and rhythm. Extremities ecchymosis and tenderness over the volar and dorsal aspect of the right hand. Painful range of motion. Wrist is nontender. Normal cap refill. Skin is warm and dry. No focal neurologic deficit. Remainder of exam is unremarkable. Emergency Department Course and Treatment: X-ray right hand and wrist show no acute process. Patient is given a Velcro wrist splint. She is advised to follow-up with Dr. Garcia wafer production worker for no doc. She is advised to ice and elevate. Advised use NSAIDs for pain. Advised return to ED if worsening complaints. Disposition: Discharge home Impression: Right hand contusion This note was generated with [employer] dictation software. It may contain incorrect words, spelling, and punctuation that were not noted in review of the chart prior to signing ED Disposition - Plan for ED Patient: Chief Complaint: Upper Extremity Injury Instructions: ED Contusion Hand Referrals: Reese Garcia MD [NON-STAFF] - Care Physician,No Primary [Primary Care Provider] -
--- NOTE | 2018-05-14 21:37 | ED.DEP ---
ED Disposition - Plan for ED Patient: Chief Complaint: Upper Extremity Injury Instructions: ED Contusion Hand Referrals: Care Physician,No Primary [Primary Care Provider] - Reese Garcia MD [NON-STAFF] -
[2018-05-14 22:12] VITALS: PULSE 82; RESP 16; O2SAT 97
== END 2018-05-14 23:47 | disposition home or self-care (01) ==
LOC: ED 20:34
PROVIDERS: Emergency Provider Emergency Medicine
DX: S60.221A Contusion of right hand, initial encounter (principal); W00.0XXA Fall on same level due to ice and snow, initial encounter; Y93.9 Activity, unspecified; Y92.9 Unspecified place or not applicable; G43.909 Migraine, unspecified, not intractable, without status migrainosus; Z72.0 Tobacco use
CPT/HCPCS: 73110; 73130; 99283

== ENCOUNTER → 2018-05-25 13:19 | Outpatient (CLI) | payer BC, MEDICAID, SELFPAY ==
[2018-04-27 05:19] VITALS: BMI 35.6
[2018-05-14 19:42] VITALS: BMI 39.0
--- NOTE | 2018-05-25 13:45 | MRI_ITS ---
STUDY: MRI BRAIN WITH AND WITHOUT CONTRAST REASON FOR EXAM: Female, 37 years old. Seizures and migraine TECHNIQUE: Standardized multiplanar fat and water weighted pulse sequences were obtained. 10 ml of Gadavist contrast material was administered intravenously for the contrast portion of the examination. COMPARISON: CT of the brain on January 15, 2018 FINDINGS: Normal size of the ventricles and extra-axial spaces for the patient's age. Normal white matter tracts of the supratentorial brain. Normal bilateral basal ganglia. Normal thalami. There is no extra-axial fluid accumulation. Normal flow voids within the major intracranial circulation suggesting patency by spin echo criteria. Normal venous enhancement. There is no enhancing intra-axial or extra-axial abnormality. There appears to be very tiny cyst within the right choroid fissure of uncertain clinical significance. Normal sella turcica, pituitary gland, infundibular stalk, optic chiasm and hypothalamus. Normal tectal plate and pineal gland. Normal midbrain, chester and medulla. Normal cerebellum. Normal basal cisterns. Normal bilateral temporal bones. Normal bilateral internal auditory canals. No demonstrated orbital abnormality, within the constraints of a routine brain study. Minor mucosal thickening of the maxillary and ethmoid sinuses.. Normal calvarium and skull base. Normal visualized soft tissue structures. Normal visualized upper cervical spine. MRI/Brain W/WO Contrast IMPRESSION: Tiny cyst in the right choroid fissure of indeterminate significance although can be associated with seizures and migraines. Clinical correlation recommended. PET scan may be helpful for further assessment Electronically Signed: Ty Mak MD at 18:53 EST , Service support ,
== END ==
PROVIDERS: Referring Provider Psychiatry & Neurology Neurology; Visit Provider Psychiatry & Neurology Neurology
DX: R56.9 Unspecified convulsions (principal)
CPT/HCPCS: 70553; A9585

== ENCOUNTER 2018-07-25 13:02 | Emergency (ER) | payer BC, MEDICAID, SELFPAY ==
[2018-07-25 13:02] VITALS: BP 118/71; PULSE 81; RESP 16; TEMP 36.8; O2SAT 94; BMI 38.2
--- NOTE | 2018-07-25 13:47 | RAD_ITS ---
STUDY: X-RAY CHEST REASON FOR EXAM: Female, 38 years old. Shortness of breath. Right-sided chest tightness and fatigue. TECHNIQUE: PA and lateral views of the chest. COMPARISON: Comparison is made with prior study dated March 03, 2018. FINDINGS: The lungs are clear and expanded. There is no demonstrated pleural abnormality. Normal size heart. Normal mediastinum and fadia. Normal visualized pulmonary arteries. Normal visualized aortic arch and descending thoracic aorta. Normal visualized thoracic spine. Normal visualized ribs, clavicles, and shoulders. There is no demonstrated abnormality of the visualized soft tissue structures of the upper abdomen. RAD/Chest PA and Lateral IMPRESSION: Normal x-ray examination of the chest. Electronically Signed: Jose Alejandro Coronado, at 14:17 EDT , Service support ,
--- NOTE | 2018-07-25 13:52 | ED.DCSUM_ITS ---
History of Present Illness Chief Complaint: Shortness of Breath Informant: Patient Onset: Weeks - Onset 3-4 weeks ago. Patient states at onset of illness temperature 104 ?F. Timing: Continuous - Respiratory symptoms are continuous, Intermittent - Elevated temperature intermittent. 3 days ago she had a documented temperature 100.8. Quality: Nasal congestion productive cough generalized weakness Location: Generalized aches Current Severity: Mild Maximum Severity: Moderate Worsened by: Activity Relieved by: Nothing Associated Symptoms: Read review of systems Narrative: Patient is a 38-year-old non-smoker presents with generalized aches, bifrontal head discomfort, congestion, productive cough, generalized weakness and fatigue that started 3-4 weeks ago. At onset of illness temperature was documented as high as 104.0 ?F. 3 days ago temperature was 100.8 ?F. She denies photophobia. He denies neck pain or neck stiffness. She denies rash. She denies GI or symptoms. Prior similar symptoms: Yes Recent Illness/Hospitalization: Yes - Past Medical History (1) Migraines Status: Chronic (2) Seizure disorder Status: Chronic (3) GERD (gastroesophageal reflux disease) Status: Chronic Past Medical History - Allergies and Home Meds Allergies/Adverse Reactions: Allergies Penicillins Allergy (Verified 07/25/18 13:04) Angioedema Primary Care Physician: Care Physician,No Primary [Primary Care Provider] - Prior records reviewed: Yes Surgical History: noncontributory Lives: Spouse/ Significant Other Smoking Status: Unknown if ever smoked Drugs: None Review of Systems General: Reports: Fever, Malaise. Denies: Chills Eyes: Denies: Visual changes - left, Visual changes - right, Visual changes - bilaterally, Blurred vision - left, Blurred vision - right, Blurred Vision - bilaterally, Diplopia, -, - ENT: Denies: Rhinorrhea, Sore throat Cardiovascular: Reports: Chest pain - Right-sided with pleuritic component. De nies: Palpitations, Heart racing Respiratory: Reports: Dyspnea, Cough, Sputum, Dyspnea on exertion, Paroxysmal nocturnal dyspnea. Denies: Orthopnea Gastrointestinal: Reports: Nausea. Denies: Abdominal pain, Vomiting, Diarrhea, Melena, Hematochezia Genitourinary: Denies: Dysuria, Hematuria, Frequency, -, - Musculoskeletal: Reports: Myalgias. Denies: Arthralgias, Neck pain, Back pain, Swelling, Extremity Pain Skin: Denies: Rash Neurological: Reports: Headache, Weakness. Denies: Parasthesia, Numbness Psych: Reports: Depression Endocrine: Denies: Polyuria, Polydipsia Physical Exam Vital Signs/Narrative: Vital Signs Temp Pulse Resp BP Pulse Ox 07/25/18 13:02 98.2 F 81 16 118/71 94 Inital Vital Signs reviewed: Yes General: Well nourished, Well developed, Obese, No Acute Distress Head: Normocephalic, Atraumatic Eyes: Perrl, EOMI. Negative for: Pale conjunctiva, Scleral icterus ENT: Moist mucous membranes, Nasal congestion. Negative for: Sinus tenderness Neck: Supple, Nontender, No lymphadenopathy, No JVD Cardiovascular: Regular rate, Regular rhythm, No murmurs, Normal S1, Normal S2 Respiratory: No distress, Chest nontender, Wheezing. Negative for: CTA bilaterally Abdomen: Soft, Nontender, Nondistended, Normal bowel sounds, No masses. Negative for: Hepatomegaly, Splenomegaly, Mass Back: Nontender, Normal Inspection. Negative for: CVA tenderness Extremities: Nontender, No edema. Negative for: Calf Tenderness Skin: Normal color, No rash. Negative for: Cyanosis, Jaundice Neurological: Alert, Oriented x3, Cranial nerves II-XII grossly intact, Normal Strength, Normal Sensation, Normal DTR Psychological: - - affect is flat Diagnostic/Tx/Re-eval Chest X-Ray - ED: 2 View, Read by ED Physician, Normal, Heart, Lungs, Mediastinum, Bony Structures, No Acute Disease - Medical Decision Making Differential diagnosis is viral upper respiratory infection, bronchitis, pneumonia. With wheezing she was treated with DuoNeb and albuterol. Chest x- ray was obtained vital signs are normal. Patient was reassessed at 1420. She is markedly improved after first treatment with minimal wheezing noted. Will reassess after completion of aerosol treatments. Patient was informed that her chest x-ray is negative per my interpretation. Patient was reassessed at 1510. She had to be awakened from sleep. There is no wheezing noted. Because she has had a productive cough with fever for [address] on antibiotic and prescribed albuterol metered-dose inhaler. ED Disposition - Plan for ED Patient: Disposition: Home or Assisted Living Diagnosis: Recurrent bronchospasm, Fever due to infection, Bronchitis Instructions: ED Bronchitis Asthmatic Prescriptions: Albuterol Inhaler [Ventolin Hfa] 2 puff INHALATION Q4H PRN PRN #1 inhaler PRN Reason: Wheezing Doxycycline 100 mg PO BID #14 capsule Referrals: Care Physician,No Primary [Primary Care Provider] - Additional Instructions: Follow-up with the Dr. assigned by your insurance carrier. The name of your doctors listed on your insurance card
[2018-07-25] MEDS: Ipratropium/Albuterol Sulfate 3 ML AMPUL.NEB INHALATION (14:06)
[2018-07-25] MEDS: Albuterol 2.5 MG/3 ML VIAL.NEB. INHALATION (14:06)
[2018-07-25 14:07] VITALS: PULSE 75; RESP 16
[2018-07-25 15:35] VITALS: BP 114/67; PULSE 74; RESP 16; O2SAT 97
== END 2018-07-25 15:36 | disposition home or self-care (01) ==
PROVIDERS: Emergency Provider Emergency Medicine
DX: J98.01 Acute bronchospasm (principal); J45.909 Unspecified asthma, uncomplicated
CPT/HCPCS: 71046; 94640; 99282

== ENCOUNTER 2019-04-11 16:25 | Emergency (ER) | payer BC, MEDICAID, SELFPAY ==
[2019-04-11 16:29] VITALS: BP 135/78; PULSE 90; RESP 17; TEMP 36.5; O2SAT 97; BMI 45.3
--- NOTE | 2019-04-11 16:39 | ED.DCSUM_ITS ---
History of Present Illness Chief Complaint: Fall Detail of Chief Complaint: Left lower leg pain Informant: Patient Onset: Today Context: Sudden Onset Current Severity: Moderate Maximum Severity: Severe Narrative: She presents after mechanical fall at home. She was walking out of her home when she tripped over a rug, sliding down 3 concrete steps. She has abrasions of the anterior left anna and severe pain. She was given fentanyl via EMS. Patient denies pain at her pelvis or hips. She denies head or neck pain. She did not lose consciousness. - Past Medical History (1) GERD (gastroesophageal reflux disease) Status: Chronic (2) Migraines Status: Chronic (3) Seizure disorder Status: Chronic Past Medical History - Allergies and Home Meds Allergies/Adverse Reactions: Allergies Penicillins Allergy (Verified 04/11/19 16:26) Angioedema metoclopramide [From Reglan] Adverse Reaction (Verified 04/11/19 16:26) Other Primary Care Physician: Hadley Roberts MD [Primary Care Provider] - Prior records reviewed: Yes Surgical History: noncontributory Lives: With Family Smoking Status: Former smoker Review of Systems General: Denies: Chills, Fever Eyes: Denies: Visual changes - bilaterally Cardiovascular: Denies: Chest pain Respiratory: Denies: Dyspnea, Cough Gastrointestinal: Denies: Abdominal pain, Nausea, Vomiting, Diarrhea Musculoskeletal: Reports: Extremity Pain. Denies: Neck pain, Back pain Skin: Reports: Abrasions Neurological: Denies: Headache Hematologic: Denies: Easy bruising Allergy: Denies: Uticaria Physical Exam Vital Signs/Narrative: Vital Signs Temp Pulse Resp BP Pulse Ox 04/11/19 16:29 97.7 F L 90 17 135/78 H 97 Inital Vital Signs reviewed: Yes General: Well nourished, Well developed Head: Normocephalic ENT: Moist mucous membranes Neck: Supple Cardiovascular: Regular rate, Regular rhythm Respiratory: No distress, CTA bilaterally, Chest nontender Abdomen: Soft, Nontender, Nondistended Extremities: - - Abrasions and mild edema over the anterior left anna. Strong distal pulses are noted. She is able to wiggle toes. There is no focal tenderness at the knee or over the thigh. Neurological: Alert, Oriented x3 Psychological: Normal affect Diagnostic/Tx/Re-eval Impressions Tibia/Fibula X-Ray 04/11/19 16:51 IMPRESSION: Normal x-ray examination of the tibia and fibula. Electronically Signed: Esthela Orantes MD at 17:01 EST Tel , Service support , 04/11/19 16:51 Tibia & Fibula 2 Views [RAD] Stat - Medical Decision Making Patient was given fentanyl with EMS. X-rays do not reveal any acute bony abnormality. She clinically does not have sign of compartment syndrome. X-ray results are discussed with her. I was able to cleanse the abrasions across her anterior anna. Kurt wrap will be applied and she be given crutches. She will be given p.o. [place] here and a prescription for the same. ED Disposition - Plan for ED Patient: Disposition: Home or Assisted Living Diagnosis: Fall, Contusion of leg, left Instructions: FALL, Mechanical, CONTUSION, Lower Extremity Prescriptions: Hydrocodone Bitart/Apap 5-325 [[place] 5MG-325MG] 1 tablet PO Q6H PRN PRN 3 Days #10 tablet PRN Reason: Pain Referrals: Hadley Roberts MD [Primary Care Provider] - 1 Week if not improving
--- NOTE | 2019-04-11 16:51 | RAD_ITS ---
STUDY: X-RAY - LEFT TIBIA AND FIBULA REASON FOR EXAM: Female, 38 years old. Fall onto cement. TECHNIQUE: 2 view(s) of the tibia and fibula were obtained. COMPARISON: None. FINDINGS: Normal visualized tibia. Normal visualized fibula. The soft tissue structures are unremarkable. RAD/Tibia & Fibula 2 Views IMPRESSION: Normal x-ray examination of the tibia and fibula. Electronically Signed: Esthela Orantes MD at 17:01 EST Tel , Service support ,
[2019-04-11 17:12] VITALS: BP 135/98; PULSE 71; RESP 16; O2SAT 98
[2019-04-11] MEDS: HYDROcodone Bitartrate/Apap 5/325 Tablet PO (17:13)
== END 2019-04-11 17:56 | disposition home or self-care (01) ==
PROVIDERS: Emergency Provider Emergency Medicine; Family Provider Internal Medicine; PCP Internal Medicine
DX: S80.12XA Contusion of left lower leg, initial encounter (principal); S80.812A Abrasion, left lower leg, initial encounter; W18.09XA Striking against other object with subsequent fall, initial encounter; Y93.01 Activity, walking, marching and hiking; Y92.9 Unspecified place or not applicable; K21.9 Gastro-esophageal reflux disease without esophagitis; G40.909 Epilepsy, unspecified, not intractable, without status epilepticus; G43.909 Migraine, unspecified, not intractable, without status migrainosus; Z79.899 Other long term (current) drug therapy; Z87.891 Personal history of nicotine dependence
CPT/HCPCS: 73590; 99285; J7030

== ENCOUNTER 2019-11-19 14:27 | Emergency (ER) | payer OTHER, MEDICAID, SELFPAY ==
[2019-11-19 14:28] VITALS: BP 151/90; PULSE 108; RESP 16; TEMP 36.3; O2SAT 96; BMI 31.4
--- NOTE | 2019-11-19 14:43 | RAD_ITS ---
STUDY: X-RAY - RIGHT FOOT CLINICAL: Female, 39 years old. PAIN ACROSS METATARSALS FOLLOWING INJURY TECHNIQUE: 3 view(s) of the foot. COMPARISON: None. FINDINGS: Normal talus and tarsal bones. Calcaneal spurs Normal visualized subtalar, talonavicular, calcaneocuboid, tarsal and tarsometatarsal articulations. Normal metatarsi. Normal metatarsophalangeal joint of the great toe. Normal tibial and fibular sesamoid bones. Normal interphalangeal joint of the great toe. Normal phalanges of the great toe. Normal second through fifth metatarsophalangeal joints. Normal interphalangeal joints and phalanges of the lesser toes. The soft tissue structures are unremarkable. RAD/Foot min 3 Views IMPRESSION: Calcaneal spurs, otherwise unremarkable right foot Electronically Signed: Dae Araiza MD at 15:08 EDT , Service support ,
--- NOTE | 2019-11-19 15:39 | ED.DCSUM_ITS ---
- ER Visit Summary Date of Service: 11/19/19 Chief Complaint: Right foot pain History of Present Illness: The patient is a [address] Roberts. She reports that she fell while getting out of the van. She reports that her only injury is her right foot. She denies any blow to the head or loss of co nsciousness. Patient reports she has a sharp, throbbing pain to her right foot is 1010 at worst and 6 of 10 currently. Is worsened by walking. Is relieved by ibuprofen and rest. Physical Examination: Vitals: Stable. Afebrile. Neck: No vertebral tenderness. Full ROM without difficulty. Cleared by NEXUS criteria. Back: No vertebral tenderness. General: A&O x 3. NAD. Cardiovascular exam: Regular rate and rhythm, no murmur, rub or gallop. Respiratory exam: Chest nontender. No crepitus. Clear to auscultation bilaterally. No wheezes or stridor. Abdominal exam: Soft, nontender, nondistended, normal bowel sounds. No pain in RUQ or LUQ specifically. No peritoneal signs. Extremity: Moderate tense palpation over the second and third metatarsals distally. No pain over the medial or lateral malleoli. No pain over the base of the fifth metatarsal. No pain over the proximal fibula. She has a 2+ dorsalis pedis pulse.. Test Results: Clinical Impression(s) from Imaging Studies Foot X-Ray 11/19/19 14:43 IMPRESSION: Calcaneal spurs, otherwise unremarkable right foot Electronically Signed: Dae Araiza MD at 15:08 EDT , Service support , Emergency Department Course and Treatment: Patient refused pain medications. She is resting comfortably. Treatment Plan: Patient will be discharged with instructions to follow-up with corporate [facility] in 1 week for another exam. She refused crutches or a postop shoe. Return to the emergency department for any worsening symptoms. Disposition: To home in improved and stable condition. Impression: 1. Right foot sprain. This note was generated with [employer] software. It may contain incorrect words, spelling, and punctuation that were not noted in review of the chart prior to signing ED Disposition - Plan for ED Patient: Disposition: Home or Assisted Living Instructions: ED Sprain Foot Referrals: [facility] [GROUP OF PHYSICIANS] - 1 Week
== END 2019-11-19 16:05 | disposition home or self-care (01) ==
LOC: ED 15:13
PROVIDERS: Emergency Provider Emergency Medicine; PCP Internal Medicine
DX: S93.601A Unspecified sprain of right foot, initial encounter (principal); V53.4XXA Person boarding or alighting a pick-up truck or van injured in collision with car, pick-up truck or van, initial encounter; Y93.89 Activity, other specified; Y92.9 Unspecified place or not applicable; F17.290 Nicotine dependence, other tobacco product, uncomplicated
CPT/HCPCS: 73630; 99282

== ENCOUNTER 2019-12-10 15:50 | Emergency (ER) | payer MEDICAID, SELFPAY ==
[2019-12-10 15:51] VITALS: BP 154/80; PULSE 95; PULSE 97; RESP 16; RESP 18; TEMP 36.5; O2SAT 98; O2SAT 99; BMI 39.2
--- NOTE | 2019-12-10 16:11 | ED.DCSUM_ITS ---
History of Present Illness Chief Complaint: Nausea/Vomiting/Diarrhea Informant: Patient Narrative: Patient is a 39-year-old female with a history of migraines who presents to the emergency department for nausea/vomiting and diarrhea. This is the third day of symptoms. She states she has had 4 episodes of diarrhea and 6 episodes of vomiting today alone. She states that she feels dehydrated and has not urinated over the past 48 hours. She has been trying to drink soda which has not been gi ving her any relief. Denies any significant abdominal pain associated with this. No known sick contacts. Nobody with similar symptoms. No recent travel or antibiotic use. She denies this ever happening before in the past. Denies any chest pain or shortness of breath. She has occasionally felt lightheaded. No palpitations. She denies any fevers or chills. No urinary symptoms whenever she is able to go. Denies any headache, neck stiffness or rash. No history of C. difficile. Past Medical History - Allergies and Home Meds Allergies/Adverse Reactions: Allergies Penicillins Allergy (Verified 11/19/19 14:30) Angioedema metoclopramide [From Reglan] Adverse Reaction (Verified 11/19/19 14:30) Other Primary Care Physician: Hadley Roberts MD [Primary Care Provider] - 3-5 Days if not improving Prior records reviewed: Yes Past Medical History: - - [place] Surgical History: noncontributory Smoking Status: Current every day smoker Review of Systems All systems negative except as indicated General: Denies: Chills, Fever, Sweats Eyes: Denies: Visual changes - bilaterally, Diplopia ENT: Denies: Rhinorrhea, Sore throat Cardiovascular: Denies: Chest pain, Palpitations Respiratory: Denies: Dyspnea, Cough, Dyspnea on exertion Gastrointestinal: Reports: Nausea, Vomiting, Diarrhea. Denies: Abdominal pain, Melena, Hematochezia Genitourinary: Denies: Dysuria, Hematuria, Frequency Musculoskeletal: Denies: Back pain, Extremity Pain Skin: Denies: Rash, Wounds Neurological: Denies: Headache, Weakness, Numbness Physical Exam Vital Signs/Narrative: Vital Signs Temp Pulse Resp BP Pulse Ox 12/10/19 15:51 97.7 F L 95 18 154/80 H 99 Inital Vital Signs reviewed: Yes General: Well nourished, Well developed, No Acute Distress Head: Normocephalic, Atraumatic Eyes: Perrl, EOMI ENT: No rhinorrhea, Dry mucous membranes Neck: Supple, Nontender Cardiovascular: Regular rate, Regular rhythm, No murmurs Respiratory: No distress, CTA bilaterally, Chest nontender Abdomen: Soft, Nontender, Nondistended, Normal bowel sounds Back: Nontender, Normal Inspection Extremities: Nontender, No edema. Negative for: Edema, Calf Tenderness Skin: Normal color, No rash Neurological: Alert, Oriented x3, Cranial nerves II-XII grossly intact, Normal Strength, Normal Sensation Psychological: Normal affect, Normal Mood Diagnostic/Tx/Re-eval - Medical Decision Making Patient presents the emerge department for nausea vomiting and diarrhea. Upon arrival to the emerge department she is borderline tachycardic but otherwise normal vital signs. Does not appear in any acute distress. Physical exam otherwise is benign. Will check basic lab work along with starting IV fluids. Will give Zofran for symptomatic treatment. Lab work obtained and she had very mildly elevated liver enzymes. Patient was made aware of this and needs to have this followed by her PCP. She not have any episodes of vomiting or diarrhea here in the emergency department. Vital signs have been stable throughout ED stay. She is feeling better after IV fluids and Zofran. She does feel comfortable going home at this time. Is to follow-up with her PCP. Warning signs and symptoms for which to return to the emerge department including any worsening dehydration or developing any fever/chills with this. She understands and is agreeable this plan. Will discharge home in stable condition with a prescription of Zofran. ED Disposition - Plan for ED Patient: Disposition: Home or Assisted Living Diagnosis: Nausea and vomiting, Diarrhea Instructions: ED Vomiting and Diarrhea Nonspecific Adult Prescriptions: Ondansetron [Zofran Odt] 4 mg PO Q8H PRN PRN #10 tab PRN Reason: Nausea Transmission Status: Received by [facility] [facility] Referrals: Hadley Roberts MD [Primary Care Provider] - 3-5 Days if not improving
[2019-12-10] MEDS: Ondansetron 4 MG/2 ML Vial IV (16:23)
[2019-12-10 16:38] LABS: Absolute Neutrophil Count 7.2 X10^3/uL (2.0-7.7); Basophil# 0.02 X10^3/uL; Basophil% 0.2 % (0-1); Eosinophils% 0.9 % (0-5); Hematocrit 38.6 % (37-47); Hemoglobin 12.3 g/dL (12.0-15.0); Lymphocyte % 28.4 % (19-41); Mean Corp Hgb Conc 31.9 g/dL (32-36); Mean Corpuscular Hgb 30.3 pg (27.0-32.0); Mean Corpuscular Volume 95.1 fL (81-99); Monocyte# 0.69 X10^3/uL; Monocyte% 6.1 % (0-10); NRBC Flagged by Analyzer 0 % (0-5); Neutrophil # 7.18 X10^3/uL (2.7-7.7); Neutrophil % 63.8 % (47-70); Platelet Count 340 K/mm3 (150-450); RBC Distribution Width CV 13.3 % (11.6-14.6); RBC Distribution Width SD 46.5 fl (35.1-43.9); Red Blood Count 4.06 M/mm3 (4.2-5.4); White Blood Count 11.3 K/mm3 (4.4-11.0)
[2019-12-10 16:59] LABS: ALB/GLOB Ratio 0.8 RATIO (0.9-2.4); AST(SGOT) 64 U/L (15-37); Alanine Aminotransfer ALT/SGPT 96 U/L (13-56); Albumin, Serum 3.6 g/dL (3.2-5.0); Alkaline Phosphatase 95 U/L (45-117); Anion Gap 3 (5-15); BUN 8 mg/dL (7-18); BUN/Creat Ratio 12.5 RATIO (10-20); Chloride 109 mmol/L (98-107); Creatinine, Serum 0.64 mg/dL (0.55-1.02); EST Glomerular Filtration Rate 108 mL/min (>60); Est Glom Filt Rate - Afr Amer 131 mL/min (>60); Estimated Creatinine Clearance 99.89 ml/min; Globulin 4.5 g/dL (2.2-4.2); Glucose 83 mg/dL (74-106); Magnesium 2.2 mg/dL (1.6-2.6); Potassium 3.9 mmol/L (3.5-5.1); Protein, Total 8.1 g/dL (6.4-8.2); Sodium Level 140 mmol/L (136-145)
[2019-12-10 17:01] LABS: Internal QC Validated? YES +Cl - CLEAR BKGD; Pregnancy, Serum, hCG Quali. NEGATIVE Negative
== END 2019-12-10 18:06 | disposition home or self-care (01) ==
PROVIDERS: Emergency Provider Emergency Medicine; PCP Internal Medicine
DX: R11.2 Nausea with vomiting, unspecified (principal); R19.7 Diarrhea, unspecified; R42 Dizziness and giddiness; G43.909 Migraine, unspecified, not intractable, without status migrainosus; F17.200 Nicotine dependence, unspecified, uncomplicated
CPT/HCPCS: 80053; 83735; 84703; 85025; 96374; 99284; J7030; J2405

== ENCOUNTER 2021-02-09 09:35 | Emergency (ER) | payer MEDICAID, SELFPAY ==
[2021-02-09 09:36] VITALS: BP 149/99; PULSE 102; RESP 16; TEMP 36.1; O2SAT 100; BMI 31.2
--- NOTE | 2021-02-09 10:29 | RAD_ITS ---
STUDY: X-RAY - RIGHT ANKLE REASON FOR EXAM: Right ankle pain, right ankle injury. TECHNIQUE: 3 view(s) of the ankle. COMPARISON: Radiographs of the right foot 11/19/2019. FINDINGS: Normal visualized distal tibia and fibula. Normal medial and lateral malleoli. Normal tibiotalar articulation and ankle mortise. There are posterior and plantar calcaneal enthesophytes. The visualized subtalar, talonavicular, calcaneocuboid and tarsal articulations are normal. There is mild soft tissue swelling overlying the lateral malleolus. RAD/Ankle min 3 Views IMPRESSION: Calcaneal enthesopathy. No demonstrated fracture. Electronically Signed: Pepe Gordon MD at 11:18 EDT Tel , Service support ,
--- NOTE | 2021-02-09 10:30 | EX.ED.GENINJ ---
HPI History of Present Illness Chief Complaint: Laceration Informant: patient Narrative Narrative: 40-year-old female arriving to the emergency department following a fall. Patient states that she pivoted to close a door quickly and rolled her right ankle which resulted in her falling to the ground and striking her right side of her head on the ground. No loss of consciousness no nausea vomiting. She notes pain posterior aspect of the right ankle as well as a forehead laceration. Tetanus Immunization: 5-10 years PFSH PFS Medical History GERD (gastroesophageal reflux disease) Migraines PTSD (post-traumatic stress disorder) Home Medications topiramate [Topamax] 100 mg PO BID 11/03/17 [History Last Taken 04/11/19] albuterol sulfate [Ventolin HFA] 2 puff INHALATION Q4H PRN PRN #1 inhaler 07/25/18 [Rx Last Taken Unknown] buspirone 10 mg PO PRN PRN 07/25/18 [History Last Taken Unknown] pantoprazole 40 mg PO DAILY 04/11/19 [History Last Taken 04/11/19] Allergy/AdvReac Type Severity Reaction Status Date / Time Penicillins Allergy Angioedema Verified 02/09/21 09:38 metoclopramide [From Reglan] AdvReac Other Verified 02/09/21 09:38 Social History (Updated 02/09/21 @ 10:[address] Abad Scott DO) Smoking Status: Current every day smoker tobacco type: e-cigarettes substance use type: does not use ROS ROS ED Constitutional Constitutional ED: Denies chills or weight loss Eyes Eyes: Denies change in vision or diplopia ENT ENT ED: Denies ear pain, rhinorrhea or sore throat Cardiovascular Cardiovascular: Denies chest pain, orthopnea, palpitations or racing heartbeat Respiratory/Chest Respiratory/Chest: Denies cough, dyspnea or orthopnea Gastrointestinal Gastrointestinal: Denies abdominal pain, diarrhea, nausea or vomiting Genitourinary Genitourinary ED: Denies dysuria, hematuria or urinary frequency Musculoskeletal Musculoskeletal: Reports other Details: See history of present illness ; Denies arthralgias or myalgias Integumentary Reports other Details: See history of present illness ; Denies abscess or rash Neurologic Neurologic: Denies headache(s) or weakness Psychiatric Psychiatric: Denies anxiety, depression, suicidal ideation or suicidal thoughts Endocrine Endocrinology: Denies polydipsia, polyphagia or polyuria Allergic/Immunologic Allergic/Immunologic ED: Denies mouth swelling, tongue swelling or urticaria EXAM Physical Exam Const Vital Signs: 02/09/21 09:36 Temperature 97.0 F L Temperature Source Temporal Pulse Rate 102 H Respiratory Rate 16 Blood Pressure 149/99 H Blood Pressure Mean 115 Pulse Ox 100 Oxygen Delivery Method Room Air Positive well nourished and well developed General Appearance ED: well developed HEENT Reports normocephalic, head/scalp atraumatic, TM's clear and moist mucous membranes HEENT Narrative: Normal oropharynx. There is a forehead laceration measuring approximately 3 cm trauma Tympanic Membrane ED: Yes TM's clear Eyes PERRL and EOMs intact bilaterally Neck no lymphadenopathy, supple and no JVD Resp normal respiratory effort and clear to auscultation bilaterally Cardio regular rate, regular rhythm and no murmurs GI normal to inspection, nondistended, normoactive bowel sounds and non-tender Palpation: soft Back/Spine no CVA tenderness and normal ROM Extremity Extremity Narrative: Patient has swelling and tenderness to the posterior aspect of the lateral malleolus. Negative Diaz's test. Achilles palpates intact. General Extremety ED: Yes edema and tenderness General Extremity: edema Neuro oriented x3 and CN's II-XII intact bilaterally Sensorium / Orientation: alert Motor Exam: strength 5/5 throughout Psych mental status grossly normal Mood & Affect: Negative for depressed or tearful Skin no rashes or lesions noted and no wounds MDM MDM MDM Narrative Medical decision making narrative: My interpretation of the plain films of the right ankle is no acute fracture. Patient is 40 years old with no loss of consciousness and not on blood thinners. At this point she is neurologically stable I do not think she requires a head CT at this point. Return instructions were given to the patient Wound was locally anesthetized using 1% lidocaine. Washed with Shur-Clens and explored. Was closed using a total of 5 simple erupted 4-0 Ethilon sutures. Wound care discussed with patient. Stitches to be removed in 5 to 7 days. Return if any concerns. Discharge Plan Triage Chief Complaint: Laceration ED Provider: Abad Scott Dx/Rx/DC Orders Clinical Impression: Right ankle sprain, Head injury, Forehead laceration Instructions: ED Head Injury (Adult), ED Laceration: All Closures Prescriptions: No Action topiramate [Topamax] 25 MG tablet 100 mg PO BID RF: 0 buspirone 10 tablet 10 mg PO PRN PRN (Reason: Anxiety) RF: 0 albuterol sulfate [Ventolin HFA] 1 INHALER inhaler 2 puff inhalation Q4H PRN PRN (Reason: Wheezing) Qty: 1 RF: 0 pantoprazole 40 MG tablet 40 mg PO DAILY RF: 0 Primary Care Provider: Hadley Roberts Referrals: Hadley Roberts MD [Primary Care Provider] - 7 Days for suture removal Disposition Disposition: Home, Self Care
[2021-02-09] MEDS: Lidocaine 1% (20 ml mdv) 20 ML Vial INFILT (11:13)
[2021-02-09 11:44] VITALS: BP 141/85; PULSE 95; RESP 16; O2SAT 95
== END 2021-02-09 11:48 | disposition home or self-care (01) ==
LOC: ED 11:38
PROVIDERS: Emergency Provider Emergency Medicine; PCP Internal Medicine
DX: S01.81XA Laceration without foreign body of other part of head, initial encounter (principal); S93.401A Sprain of unspecified ligament of right ankle, initial encounter; K21.9 Gastro-esophageal reflux disease without esophagitis; G43.909 Migraine, unspecified, not intractable, without status migrainosus; F43.10 Post-traumatic stress disorder, unspecified; F17.290 Nicotine dependence, other tobacco product, uncomplicated; Z79.899 Other long term (current) drug therapy; W26.8XXA Contact with other sharp object(s), not elsewhere classified, initial encounter; Y93.89 Activity, other specified; Y92.89 Other specified places as the place of occurrence of the external cause; Y99.8 Other external cause status
CPT/HCPCS: 12013; 73610; 99282

== ENCOUNTER 2021-06-18 07:20 | Emergency (ER) | payer MEDICAID, SELFPAY ==
[2021-06-18 07:21] VITALS: BP 148/89; PULSE 120; RESP 16; TEMP 36.9; O2SAT 95; BMI 41.5
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
--- NOTE | 2021-06-18 08:06 | ED.RN ---
back from radiology. pt continues w/freq dry cough, spo2=92-94% on ra, [id number]. continues to report chest pain-denying need for pain med. dr crump notified.
[2021-06-18] MEDS: Ipratropium/Albuterol Sulfate 3 ML AMPUL.NEB INHALATION (08:14)
[2021-06-18 08:16] VITALS: PULSE 126; RESP 17
[2021-06-18 09:03] VITALS: BP 115/72; PULSE 102; RESP 16; O2SAT 95
== END 2021-06-18 09:12 | disposition home or self-care (01) ==
PROVIDERS: Emergency Provider Emergency Medicine; PCP Family Medicine; Visit Provider Emergency Medicine
DX: S09.90XA Unspecified injury of head, initial encounter (principal); S80.10XA Contusion of unspecified lower leg, initial encounter; F17.290 Nicotine dependence, other tobacco product, uncomplicated; S20.20XA Contusion of thorax, unspecified, initial encounter; S60.229A Contusion of unspecified hand, initial encounter; Y92.410 Unspecified street and highway as the place of occurrence of the external cause; R06.2 Wheezing; V89.2XXA Person injured in unspecified motor-vehicle accident, traffic, initial encounter; K21.9 Gastro-esophageal reflux disease without esophagitis; G43.909 Migraine, unspecified, not intractable, without status migrainosus; F43.10 Post-traumatic stress disorder, unspecified; Z79.899 Other long term (current) drug therapy
CPT/HCPCS: 70450; 71045; 73130; 73590; 94640; 99284

== ENCOUNTER 2021-07-21 14:48 | Emergency (ER) | payer MEDICAID, SELFPAY ==
[2021-07-21 14:51] VITALS: BP 142/93; PULSE 92; RESP 14; TEMP 36; O2SAT 99; BMI 38.6
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
--- NOTE | 2021-07-21 15:15 | EX.ED.UPPERE ---
HPI History of Present Illness Chief Complaint: Upper Extremity Injury Detail of Chief Complaint: And to the left long and ring finger status post fall Informant: patient Occured/Mechanism Mechanism/Context: Yes blunt trauma Onset/Context/Timing Onset: Hours (Approximately 1 hour ago) Context: Sudden Onset Timing: Continuous Quality of Pain: Dull and Throbbing Location: Left hand and left long and ring finger Current Severity: Mild Maximum Severity: Severe Worsened by: Passive and active motion Relieved by: Nothing Associated Symptoms Associated Symptoms: Positive for Loss of Funtion (Due to pain); Negative for Parasthesia and Weakness Narrative Narrative: Patient 41-year-old [id number] woman who fell. She states her left long and ring finger hyperextended. She had instantaneous pain. She is removed her rings. There is swelling noted. There is no ecchymosis or bruising noted. She denies paresthesia, anesthesia or motor weakness. She denies prior injury. Tetanus Immunization: 5-10 years Prior similar symptoms: No Recent Illness/Hospitalization: No PFSH PFSH Medical History GERD (gastroesophageal reflux disease) Migraines PTSD (post-traumatic stress disorder) Home Medications topiramate [Topamax] 100 mg PO BID 11/03/17 [History Last Taken 04/11/19] buspirone 10 mg PO PRN PRN 07/25/18 [History Last Taken Unknown] pantoprazole 40 mg PO DAILY 04/11/19 [History Last Taken 04/11/19] naproxen 500 mg PO BID #10 tab 07/21/21 [Rx Last Taken Unknown] Allergy/AdvReac Type Severity Reaction Status Date / Time Penicillins Allergy Angioedema Verified 07/21/21 14:50 metoclopramide [From Reglan] AdvReac Other Verified 07/21/21 14:50 Social History (Updated 07/21/21 @ 15:[address] Bo Will MD) household members: spouse Smoking Status: Current every day smoker tobacco type: e-cigarettes substance use type: does not use ROS ROS ED Musculoskeletal Musculoskeletal: Reports back pain, myalgias, neck pain and other Details: Left hand pain Neurologic Neurologic: Denies paresthesias or weakness Hematologic/Lymphatic Hematologic/Lymphatic: Denies easy bleeding or easy bruising EXAM Physical Exam Const Vital Signs: 07/21/21 14:51 Temperature 96.8 F L Temperature Source Temporal Pulse Rate 92 Respiratory Rate 14 Blood Pressure 142/93 H Blood Pressure Mean 109 Pulse Ox 99 Oxygen Delivery Method Room Air Positive well nourished, well developed and obese General Appearance ED: well developed; Negative for cyanotic, diaphoretic or NAD Nutritional Appearance: obese HEENT normocephalic and atraumatic Eyes PERRL and EOMs intact bilaterally Neck full ROM and supple Resp normal respiratory effort Cardio regular rate and regular rhythm Extremity Left Upper Extremity: hand and digits inspection (Soft tissue swelling), palpation (Pain to palpation over the second, third, fourth metacarpal and the phalanges of the index, long and ring finger. There is no deformity.), ROM (Limited due to pain), neurovascular exam (Intact. Cap refill normal. Sensation normal.), tendon exam (The extensor commonest, extensor indices and extensor minimized tendon are functionally intact. The flexor digitorum superficialis and flexor digitorum profundus are intact for the index, long, and ring finger.) and other (There is no subungual hematoma noted.) Neuro oriented x3 and CN's II-XII intact bilaterally Sensorium / Orientation: alert Psych mental status grossly normal Skin Lesions: no lesions Rashes: no rashes MDM MDM MDM Narrative Medical decision making narrative: X-ray was obtained to evaluate for fracture versus soft tissue injury, strain Radiography Diagnostic Testing: Three-view x-ray of the hand was independently interpreted by me as negative for fracture, dislocation or subluxation. There is minimal soft tissue swelling noted of the proximal phalanx of the left long and ring finger. Discharge Plan Triage Chief Complaint: Upper Extremity Injury ED Provider: Bo Will Dx/Rx/DC Orders Clinical Impression: Strain of left middle finger, Strain of left ring finger Instructions: ED Hand Sprain Prescriptions: New naproxen 500 MG tablet 500 mg PO BID Qty: 10 RF: 0 No Action topiramate [Topamax] 25 MG tablet 100 mg PO BID RF: 0 buspirone 10 tablet 10 mg PO PRN PRN (Reason: Anxiety) RF: 0 pantoprazole 40 MG tablet 40 mg PO DAILY RF: 0 Primary Care Provider: Hawk Reeder Referrals: Hawk Reeder MD [Primary Care Provider] - Activity Restrictions/Additional Instructions: You were given home-going instructions for sprain versus strain. The treatment is the same. Apply ice 6-8 times a day. You may be sore for 1 to 3 days. Disposition Disposition: Home, Self Care
[2021-07-21] MEDS: HYDROcodone Bitartrate/Apap 5/325 Tablet PO (15:20)
[2021-07-21] MEDS: Naproxen 500 MG Tablet PO (15:21)
== END 2021-07-21 16:21 | disposition home or self-care (01) ==
PROVIDERS: Emergency Provider Emergency Medicine; PCP Family Medicine; Visit Provider Emergency Medicine
DX: S66.912A Strain of unspecified muscle, fascia and tendon at wrist and hand level, left hand, initial encounter (principal); F17.290 Nicotine dependence, other tobacco product, uncomplicated; X50.9XXA Other and unspecified overexertion or strenuous movements or postures, initial encounter; Y93.9 Activity, unspecified; Y92.9 Unspecified place or not applicable; K21.9 Gastro-esophageal reflux disease without esophagitis; F43.10 Post-traumatic stress disorder, unspecified; G43.909 Migraine, unspecified, not intractable, without status migrainosus; Z79.899 Other long term (current) drug therapy; E66.9 Obesity, unspecified; Z68.38 Body mass index [BMI] 38.0-38.9, adult
CPT/HCPCS: 73130; 99283

== ENCOUNTER 2022-10-14 12:10 | Emergency (ER) | payer MEDICAID, SELFPAY ==
[2022-10-14 12:11] VITALS: BP 130/85; PULSE 115; RESP 14; TEMP 36.1; O2SAT 96; BMI 39.4
--- NOTE | 2022-10-14 12:27 | EDS_ITS ---
HPI History of Present Illness Chief Complaint: Chest Pain Informant: patient Onset/Context/Timing Onset: Yesterday Activity at onset: sudden Timing: Intermittent and Lasts (10 to 15 minutes) Quality: Positive for - (Radiating) Location: Left Chest Worsened By: Nothing Relieved By: Nothing Associated Symptoms: Positive for Diaphoresis and Palpitations; Negative for Nausea, Vomiting, Dyspnea, Cough, Fever, Lightheadedness or Acid Reflux Narrative Narrative: Patient presents with chest pain that began last night. Patient states the pain is over the left chest and radiates into her left shoulder. Patient states it comes and goes. Patient states that last approximately 10 to 15 minutes. Patient states it began rather suddenly. Patient states nothing makes it better nothing makes it worse. Patient does admit to some palpitations where she feels like her heart is racing. Patient states she also broke out into a sweat when the pain came on. Patient also admits to some tingling in the fingers of her left hand. Patient denies any nausea or vomiting. Patient denies any shortness of breath or cough. Patient denies any lightheadedness or dizziness. CVD Risk Factors: Positive for Family History 1' </=55; Negative for Hypertension, Diabetes, Hypercholesterolemia or Smoking PE Risk Factors: Negative for Recent Travel/Surgery, Recent Immobilization, Prior DVT or PE, Cancer or OCP + Smoking + >/=35 [facility] Medical History (Updated 10/14/22 @ 16:[address] Jay Hall, ) GERD (gastroesophageal reflux disease) Migraines PTSD (post-traumatic stress disorder) Home Medications topiramate 25 mg tablet (Topamax) 100 mg PO BID headache 11/03/17 [History Last Taken 04/11/19] buspirone 10 mg tablet 10 mg PO PRN PRN Anxiety 07/25/18 [History Last Taken Unknown] pantoprazole 40 mg tablet,delayed release 40 mg PO DAILY 04/11/19 [History Last Taken 04/11/19] naproxen 500 mg tablet 500 mg PO BID #10 tabs 07/21/21 [Rx Last Taken Unknown] Allergy/AdvReac Type Severity Reaction Status Date / Time Penicillins Allergy Angioedema Verified 10/14/22 12:28 metoclopramide [From Reglan] AdvReac Other Verified 10/14/22 12:28 Surgical History (Updated 10/14/22 @ 12:[address] Jay Hall DO) H/O section History of surgical removal of ganglion cyst Hx of appendectomy Hx of cholecystectomy Social History household members: spouse Smoking Status: Current every day smoker tobacco type: e-cigarettes substance use type: does not use ROS ROS ED Constitutional Constitutional ED: Denies chills or fever(s) Eyes Eyes: Denies blurry vision or change in vision ENT ENT ED: Denies rhinorrhea or sore throat Cardiovascular Cardiovascular: Reports chest pain and palpitations Respiratory/Chest Respiratory/Chest: Denies cough or dyspnea Gastrointestinal Gastrointestinal: Denies abdominal pain, nausea or vomiting Genitourinary Genitourinary ED: Denies dysuria or hematuria Musculoskeletal Musculoskeletal: Reports neck pain; Denies back pain Integumentary Denies abscess or rash Neurologic Neurologic: Reports headache(s); Denies weakness Allergic/Immunologic Allergic/Immunologic ED: Denies mouth swelling or urticaria EXAM Physical Exam Const Vital Signs: 10/14/22 12:11 10/14/22 12:29 10/14/22 12:45 Temperature 96.9 F L Temperature Source Temporal Pulse Rate 115 H Respiratory Rate 14 Respiratory Effort Normal Non-Labored Blood Pressure 130/85 H Blood Pressure Mean 100 Pulse Ox 96 93 Oxygen Delivery Method Room Air 10/14/22 12:49 10/14/22 14:11 10/14/22 16:07 Temperature Temperature Source Pulse Rate 93 94 88 Respiratory Rate 18 24 H 14 Respiratory Effort Blood Pressure 100/81 H 113/87 H 110/88 H Blood Pressure Mean 87 95 95 Pulse Ox 94 99 98 Oxygen Delivery Method Room Air Room Air Room Air 10/14/22 16:20 Temperature Temperature Source Pulse Rate 98 Respiratory Rate 13 Respiratory Effort Blood Pressure 107/84 H Blood Pressure Mean Pulse Ox 98 Oxygen Delivery Method Positive well nourished, well developed and obese General Appearance ED: well developed and NAD Nutritional Appearance: obese HEENT normocephalic and atraumatic Eyes PERRL and EOMs intact bilaterally Neck supple and no JVD Chest Wall palpation of chest normal Resp normal respiratory effort and clear to auscultation bilaterally Effort and Inspection: Negative for respiratory distress Cardio regular rate, regular rhythm and no murmurs GI normal to inspection, nondistended, normoactive bowel sounds, soft to palpation, non-tender and non-distended Extremity normal to inspection General Extremety ED: Negative for edema or tenderness General Extremity: Negative for edema Neuro oriented x3, CN's II-XII intact bilaterally and no sensory deficits noted Sensorium / Orientation: awake and alert Motor Exam: strength 5/5 throughout Psych mental status grossly normal Heart Score History: Slightly/Non-Suspicious ECG: Normal Age: </= 45 years Risk Factors: 1 or 2 Risk Factors Troponin: </= Normal Limit Score: 1 MDM MDM MDM Narrative Medical decision making narrative: Differential diagnosis includes pulmonary embolism, cardiac dysrhythmia, cardiac ischemia, pneumonia, pneumothorax, musculoskeletal pain, and anxiety. EKG will be obtained to assess for cardiac dysrhythmia and cardiac ischemia. Chest x-ray will be obtained to assess for pneumonia and pneumothorax. CBC will be obtained to assess for leukocytosis and anemia. Basic metabolic profile will be obtained to assess for electrolyte abnormality and renal function. High-sensitivity troponin will be obtained to assess for cardiac ischemia. D-dimer will be obtained to assess for pulmonary embolism. Lab Data Attestation: I reviewed the patient's lab results. Lab results narrative: CBC was reviewed and was within normal limits. Basic metabolic profile was reviewed and was essentially within normal limits. D-dimer was reviewed and was slightly elevated at 0.58. High-sensitivity troponin was less than 3. Labs: Laboratory Results - last 24 hr 10/14/22 10/14/22 10/14/22 12:55 12:55 13:43 WBC 9.4 RBC 4.18 L Hgb 12.9 Hct 38.2 MCV 91.4 MCH 30.9 MCHC 33.8 RDW Std Deviation 44.6 H RDW Coeff of Ronit 13.4 Plt Count TNP Immature Gran % (Auto) 0.400 Neut % (Auto) 64.7 Lymph % (Auto) 27.5 [place]ard % (Auto) 6.0 Eos % (Auto) 1.1 Baso % (Auto) 0.3 Absolute Neuts (auto) 6.1 Absolute Lymphs (auto) 2.58 Nucleated RBC % 0 Differential Comment SCANNED Platelet Estimate ADEQUATE D-Dimer Quant (PE/DVT) 0.58 H* Sodium 137 Potassium 4.2 Chloride 108 H Carbon Dioxide 23.0 Anion Gap 6 BUN 12 Creatinine 0.70 Estim Creat Clear Calc 88.56 Est GFR (MDRD) Af Amer 116 Est GFR (MDRD) Non-Af 96 BUN/Creatinine Ratio 17.1 Glucose 95 Calcium 9.3 Troponin I High Sens < 3 L Radiography Chest X-Ray - ED: 1 View, Read by ED Physician, Read by Radiologist and No Acute Disease CTA PE Study: No Evidence of PE and No Evidence of Dissection Diagnostic Testing: Clinical Impression(s) from Imaging Studies Chest X-Ray 10/14/22 12:40 IMPRESSION: No radiographic evidence of acute cardiopulmonary disease and unchanged when compared to 06/18/2021. Electronically Signed: Sandoval Ross MD at 13:22 EDT , Chest CTA 10/14/22 14:10 IMPRESSION: 1. Negative CTA chest. 2. Prominent hiatal hernia is unchanged. 3. Upper T12 bone island is unchanged. 4. No interval change when compared to 03/03/2018. Electronically Signed: Sandoval Ross MD at 14:56 EDT , Portable 1 view chest x-ray was obtained. On my independent interpretation, lung magallon are clear. There is normal cardiac silhouette. Bony thorax is normal. There is no acute process noted. Radiologist also interpreted the x- ray and agrees. CT of the chest was obtained because of the elevated D-dimer. There is no evidence of pulmonary embolism or aortic dissection. This was interpreted by the radiologist and was also dependently reviewed by myself. EKG Initial EKG: Attestation: I personally reviewed and interpreted this EKG as follows: Interpretation: No Acute Injury Pattern and Sinus Tachycardia (105) Comments: EKG was obtained. On my independent interpretation, it showed a sinus tachycardia with a rate of 105. [place] interval, QRS interval, and QTc intervals were all normal. [place] was normal. There are no acute ST or T wave changes. Prior EKG tracings: available for review Prior: Unchanged (03/03/2018) Treatment and Re-Evaluation :: Patient was given aspirin initially. Patient is feeling better on reevaluation. Patient was advised of her findings. Patient has a HEART score of 1. Patient was advised that this is low risk for acute cardiac event. Patient was instructed to follow-up with her primary care physician in 5 to 7 days for further evaluation. Patient understood and was agreeable with plan. All questions were answered. Discharge Plan Triage Chief Complaint: Chest Pain Other Complaint: Shortness of Breath ED Provider: Jay Hall Dx/Rx/DC Orders Clinical Impression: Chest pain, Obesity (BMI 30-39.9) Instructions: ED Chest Pain, Uncertain Cause Prescriptions: No Action topiramate [Topamax] 25 MG tablet 100 mg PO BID buspirone 10 tablet 10 mg PO PRN PRN (Reason: Anxiety) pantoprazole 40 MG tablet 40 mg PO DAILY naproxen 500 MG tablet 500 mg PO BID Qty: 10 0RF Stand Alone Forms: Work / School Excuse Primary Care Provider: Hawk Reeder Referrals: Hawk Reeder MD [Primary Care Provider] - 5-7 Days Disposition Disposition: Home, Self Care Discharge Date/Time: 10/14/22 16:29
--- NOTE | 2022-10-14 12:40 | EKG12_ITS ---
Test Reason : CP Blood Pressure : / mmHG Vent. Rate : 105 BPM Atrial Rate : 105 BPM P-R Int : 140 ms QRS Dur : 078 ms QT Int : 338 ms P-R-T Axes : 063 065 054 degrees QTc Int : 446 ms Sinus tachycardia Otherwise normal ECG Confirmed by SID SY, GER ([id number]), senior technical editor CHELSEI BAUMAN ([id number]) on 10/17/2022 10:54:02 A M Referred By: RANDY/RAND Confirmed By:TERRI LAU MD
--- NOTE | 2022-10-14 12:40 | RAD_ITS ---
EXAM: XR CHEST, 1 VIEW CLINICAL INDICATION: chest pain TECHNIQUE: Frontal view of the chest. COMPARISON: 06/18/2021. FINDINGS: LUNGS AND PLEURAL SPACES: Unremarkable. No consolidation or edema. No pneumothorax. No effusion. HEART: Unremarkable. Cardiac silhouette not enlarged. MEDIASTINUM: Central airways and mediastinal contour are unremarkable. BONES/JOINTS: Unremarkable. SOFT TISSUES: Unremarkable. RAD/Chest 1 View (Portable) IMPRESSION: No radiographic evidence of acute cardiopulmonary disease and unchanged when compared to 06/18/2021. Electronically Signed: Sandoval Ross MD at 13:22 EDT ,
[2022-10-14 12:45] VITALS: O2SAT 93
[2022-10-14] MEDS: Aspirin 81 MG TAB.CHEW 324 MG PO (12:47)
[2022-10-14 12:49] VITALS: BP 100/81; PULSE 93; RESP 18; O2SAT 94
[2022-10-14 13:09] LABS: Absolute Lymphocyte Count 2.58 X10^3/uL (0.83-4.51); Absolute Neutrophil Count 6.1 X10^3/uL (2.0-7.7); Basophil# 0.03 X10^3/uL; Basophil% 0.3 % (0-1); Eosinophils% 1.1 % (0-5); Hematocrit 38.2 % (37-47); Hemoglobin 12.9 g/dL (12.0-15.0); Lymphocyte # 2.58 X10^3/ul (0.83-4.51); Lymphocyte % 27.5 % (19-41); Mean Corp Hgb Conc 33.8 g/dL (32-36); Mean Corpuscular Hgb 30.9 pg (27.0-32.0); Mean Corpuscular Volume 91.4 fL (81-99); Monocyte# 0.56 X10^3/uL; NRBC Flagged by Analyzer 0 % (0-5); Neutrophil # 6.06 X10^3/uL (2.7-7.7); Neutrophil % 64.7 % (47-70); POSITIVE COUNT YES; RBC Distribution Width CV 13.4 % (11.6-14.6); RBC Distribution Width SD 44.6 fl (35.1-43.9); Red Blood Count 4.18 M/mm3 (4.2-5.4); White Blood Count 9.4 K/mm3 (4.4-11.0)
[2022-10-14 13:22] LABS: Anion Gap 6 (5-15); BUN 12 mg/dL (7-18); BUN/Creat Ratio 17.1 RATIO (10-20); Calcium,Total 9.3 mg/dL (8.5-10.1); Chloride 108 mmol/L (98-107); EST Glomerular Filtration Rate 96 mL/min (>60); Est Glom Filt Rate - Afr Amer 116 mL/min (>60); Estimated Creatinine Clearance 88.56 ml/min; Glucose 95 mg/dL (74-106); Potassium 4.2 mmol/L (3.5-5.1); Sodium Level 137 mmol/L (136-145); Troponin-I HS < 3 pg/mL (3.0-54.0)
[2022-10-14 13:50] LABS: Differential Indicated SCAN CRITERIA MET
[2022-10-14 13:51] LABS: Differential Comment SCANNED; Platelet Estimate ADEQUATE (ADEQ)
[2022-10-14 14:04] LABS: D-Dimer Quantitative (DVT/PE) 0.58 FEU/ug/m (0.27-0.49)
--- NOTE | 2022-10-14 14:10 | CT_ITS ---
EXAM: CT ANGIOGRAPHY CHEST WITHOUT AND WITH INTRAVENOUS CONTRAST CLINICAL INDICATION: Elevated D-dimer TECHNIQUE: Helically acquired angiography images were obtained of the chest without and with intravenous contrast. This CT exam was performed using one or more of the following dose reduction techniques: automated exposure control, adjustment of the mA and/or kV according to patient size, and/or use of iterative reconstruction technique. MIP reconstructed images were created and reviewed. CONTRAST: IV 100mL [id number] RADIATION DOSE: CTDIvol = 11.3 mGy, DLP = 514.90 mGy-cm COMPARISON: CTA chest with contrast 03/03/2018. FINDINGS: PULMONARY ARTERIES: Unremarkable. Normal in caliber. No evidence of pulmonary embolism. AORTA: Unremarkable. Normal in caliber. No evidence of dissection. GREAT VESSELS OF AORTIC ARCH: Unremarkable. Normal in caliber. No evidence of dissection. LUNGS AND PLEURAL SPACES: Unremarkable. No mass. No consolidation or edema. No pleural effusion or thickening. No pneumothorax. HEART: Unremarkable. Heart size is normal. No pericardial effusion. Normal cardiac size. No coronary artery calcifications. MEDIASTINUM: Prominent hiatal hernia is unchanged. No mediastinal or hilar adenopathy. Esophagus is unremarkable. THYROID: Unremarkable. No thyroid lesions. BONES/JOINTS: Round sclerotic lesion in the upper T12 vertebral body is bone island and unchanged. CT/CTA Chest W/WO Contrast IMPRESSION: 1. Negative CTA chest. 2. Prominent hiatal hernia is unchanged. 3. Upper T12 bone island is unchanged. 4. No interval change when compared to 03/03/2018. Electronically Signed: Sandoval Ross MD at 14:56 EDT ,
[2022-10-14 14:11] VITALS: BP 113/87; PULSE 94; RESP 24; O2SAT 99
[2022-10-14 16:07] VITALS: BP 110/88; PULSE 88; RESP 14; O2SAT 98
[2022-10-14 16:20] VITALS: BP 107/84; PULSE 98; RESP 13; O2SAT 98
== END 2022-10-14 16:29 | disposition home or self-care (01) ==
PROVIDERS: Emergency Provider Emergency Medicine; PCP Family Medicine; Visit Provider Emergency Medicine
DX: R07.9 Chest pain, unspecified (principal); F17.290 Nicotine dependence, other tobacco product, uncomplicated; R00.2 Palpitations; R06.02 Shortness of breath; E66.9 Obesity, unspecified
CPT/HCPCS: 71045; 71275; 80048; 84484; 85025; 85379; 93005; 99285; Q9967; A4216

== ENCOUNTER 2022-12-03 21:06 | Emergency (ER) | payer MEDICAID, SELFPAY ==
[2022-12-03 21:08] VITALS: BP 137/96; PULSE 109; RESP 16; TEMP 36.2; BMI 38.7
[2022-12-03 21:11] VITALS: BP 137/96; PULSE 109; RESP 18; TEMP 36.2
--- NOTE | 2022-12-03 21:24 | EX.ED.DYSGE1 ---
HPI <JALEESA Guzman - Last Filed: 12/03/22 21:51> History of Present Illness Chief Complaint: Lower Extremity Injury Narrative Narrative: Patient noticed discoloration and pain on the right outer thigh today. 2 days ago she had a 16-hour drive home from [place] so she was concerned this could be a blood clot. She states he did have a couple stops during the trip. She has no leg swelling. No calf pain. No history of DV/PE. PFSH <JALEESA Guzman - Last Filed: 12/03/22 21:51> PFSH Medical History GERD (gastroesophageal reflux disease) Migraines PTSD (post-traumatic stress disorder) Home Medications topiramate 25 mg tablet (Topamax) 100 mg PO BID headache 11/03/17 [History Last Taken 04/11/19] buspirone 10 mg tablet 10 mg PO PRN PRN Anxiety 07/25/18 [History Last Taken Unknown] pantoprazole 40 mg tablet,delayed release 40 mg PO DAILY 04/11/19 [History Last Taken 04/11/19] naproxen 500 mg tablet 500 mg PO BID #10 tabs 07/21/21 [Rx Last Taken Unknown] Allergy/AdvReac Type Severity Reaction Status Date / Time Penicillins Allergy Angioedema Verified 12/03/22 21:12 metoclopramide [From Reglan] AdvReac Other Verified 12/03/22 21:12 Surgical History H/O section History of surgical removal of ganglion cyst Hx of appendectomy Hx of cholecystectomy Social History household members: spouse Smoking Status: Current every day smoker tobacco type: e-cigarettes substance use type: does not use ROS <JALEESA Guzman - Last Filed: 12/03/22 21:51> ROS ED ROS Narrative Constitutional: Negative for fever, chills, malaise. CVS: Negative for palpitations, chest pain, syncope. Respiratory: Negative for shortness of breath. Neuro: Negative for motor/sensory dysfunction. Skin: Negative for rash, wound. Musc: Negative for joint pain, swelling, trauma. EXAM <JALEESA Guzman Last Filed: 12/03/22 21:51> Physical Exam Narrative Exam Narrative: CONST: Patient sitting in no acute distress. EYES: Normal inspection. NECK: Normal inspection. RESP: No respiratory distress, CTAB. CVS: Regular rate and rhythm, no murmur, no gallop. SKIN: Color normal, no rash, warm, dry, intact. EXTREMITIES: 3 x 3 cm area of ecchymosis right lateral thigh tender to palpation. There is no lower extremity edema, no tenderness over the deep venous system or palpable cords. Normal strength and sensation, 2+ DP pulses. NEURO: Oriented x4. PSYCH: Normal affect. Const Vital Signs: 12/03/22 21:08 12/03/22 21:11 Temperature 97.1 F L 97.1 F L Temperature Source Temporal Temporal Pulse Rate 109 H 109 H Respiratory Rate 16 18 Blood Pressure 137/96 H 137/96 H Blood Pressure Mean 109 109 <Dr. Mickey Yepez MD - Last Filed: 12/03/22 21:39> Physical Exam Const Vital Signs: 12/03/22 21:08 12/03/22 21:11 Temperature 97.1 F L 97.1 F L Temperature Source Temporal Temporal Pulse Rate 109 H 109 H Respiratory Rate 16 18 Blood Pressure 137/96 H 137/96 H Blood Pressure Mean 109 109 [facility] <JALEESA Guzman - Last Filed: 12/03/22 21:51> [facility] Narrative Medical decision making narrative: Patient has a bruise on right outer thigh which is the area she was concerned could be a blood clot. Is not consistent with a DVT. She has no tenderness with deep venous system and no palpable cords. No edema. Extremities are neurovascularly intact. I provided reassurance and discussed signs that would warrant reevaluation. She was discharged in stable condition. Test considered: No indication for D-dimer or ultrasound as this is consistent with a bruise. <Dr. Mickey Yepez MD - Last Filed: 12/03/22 21:39> [facility] Narrative Medical decision making narrative: Patient has a bruise on right outer thigh which is the area she was concerned could be a blood clot. Is not consistent with a DVT. She has no tenderness with deep venous system and no palpable cords. No edema. Extremities are neurovascularly intact. I provided reassurance and discussed signs that would warrant reevaluation. She was discharged in stable condition. Test considered: No indication for D-dimer or ultrasound as this is consistent with a bruise. I have personally performed a face to face assessment of the patient and have reviewed the LULU Note. I performed a substantive portion of the visit including all aspects of the following. My weiss findings include: History is 42-year-old female with a bruise to her right lateral thigh. No trauma. No history of DVT. Recent travel she was concerned and went to have it evaluated. No chest pain or hemoptysis. Exam is [well-appearing middle-aged female. Vital signs stable afebrile. HEENT exam unremarkable. Lungs clear. Heart regular rhythm. Abdomen soft nontender. Moving all 4 extremities. On her right lateral thigh and hamstring there is about a quarter size bruise. Mildly tender to palpation. There is no edema of the thigh or right lower leg. Normal range of motion. This does not appear to be a DVT. It is mildly tender to palpation. Otherwise exam unremarkable.] Medical Decision Making [bruise right thigh. No need for further evaluation or testing. She does not need a noninvasive study. She will be discharged home.] Other additions or changes: [None] Discharge Plan Triage Chief Complaint: Lower Extremity Injury ED Midlevel Provider: Kat Marquez ED Provider: Mickey Yepez Dx/Rx/DC Orders Clinical Impression: Contusion of right thigh Instructions: Bruises (Contusions) Prescriptions: No Action topiramate [Topamax] 25 MG tablet 100 mg PO BID buspirone 10 tablet 10 mg PO PRN PRN (Reason: Anxiety) pantoprazole 40 MG tablet 40 mg PO DAILY naproxen 500 MG tablet 500 mg PO BID Qty: 10 0RF Primary Care Provider: Hawk Reeder Referrals: Hawk Reeder MD [Primary Care Provider] - Activity Restrictions/Additional Instructions: I think this is a bruise and is not in an area where he would develop a blood clot. If you develop leg swelling, calf pain, or redness etc. please be reevaluated. Disposition Disposition: Home, Self Care Discharge Date/Time: 12/03/22 21:44
== END 2022-12-03 21:44 | disposition home or self-care (01) ==
PROVIDERS: Emergency Provider Emergency Medicine; PCP Family Medicine; Visit Provider Emergency Medicine
DX: S70.11XA Contusion of right thigh, initial encounter (principal); F17.290 Nicotine dependence, other tobacco product, uncomplicated; X58.XXXA Exposure to other specified factors, initial encounter
CPT/HCPCS: 99282

== ENCOUNTER 2023-01-08 22:12 | Emergency (ER) | payer MEDICAID, SELFPAY ==
[2023-01-08 22:13] VITALS: BP 122/77; PULSE 100; RESP 18; TEMP 36.3; O2SAT 100; BMI 39.5
--- NOTE | 2023-01-08 22:45 | ED.VIS.BACK ---
HPI History of Present Illness Chief Complaint: Back Narrative Narrative: 42-year-old female presenting with right lower back pain. Patient states he has no direct trauma. No loss of bladder or bowel control. No saddle anesthesia/paresthesia. Patient states that the pain radiates to the right gluteal region. She has had this for about 6 months. It is worse over the last 3 days. She has tried Naprosyn and hot baths without relief. No urinary complaints. No fevers or chills. No constipation or diarrhea. PFSH PFS Medical History GERD (gastroesophageal reflux disease) Migraines PTSD (post-traumatic stress disorder) Home Medications topiramate 25 mg tablet (Topamax) 100 mg PO BID headache 11/03/17 [History Last Taken 04/11/19] buspirone 10 mg tablet 10 mg PO PRN PRN Anxiety 07/25/18 [History Last Taken Unknown] pantoprazole 40 mg tablet,delayed release 40 mg PO DAILY 04/11/19 [History Last Taken 04/11/19] naproxen 500 mg tablet 500 mg PO BID #10 tabs 07/21/21 [Rx Last Taken Unknown] hydrocodone-acetaminophen 5-325mg 5mg-325mg 1 tab PO Q6H PRN PRN Pain 3 days #12 TABLETS 01/08/23 [Rx Last Taken Unknown] naproxen 500 mg tablet (Naprosyn) 500 mg PO BID PRN pain #20 tabs 01/08/23 [Rx Last Taken Unknown] prednisone 10 mg tablet 40 mg (4 x 10 mg) PO DAILY 3 days #12 tabs 01/08/23 [Rx Last Taken Unknown] tizanidine 4 mg tablet 4 mg PO Q8H PRN muscle spasticity #14 tabs 01/08/23 [Rx Last Taken Unknown] Allergy/AdvReac Type Severity Reaction Status Date / Time Penicillins Allergy Angioedema Verified 01/08/23 22:15 metoclopramide [From Reglan] AdvReac Other Verified 01/08/23 22:15 Surgical History H/O section History of surgical removal of ganglion cyst Hx of appendectomy Hx of cholecystectomy Social History household members: spouse Smoking Status: Current every day smoker tobacco type: e-cigarettes substance use type: does not use ROS ROS ED Constitutional Constitutional ED: Denies chills, fever(s) or sweats Eyes Eyes: Denies blurry vision or change in vision ENT ENT ED: Denies ear pain or sore throat Cardiovascular Cardiovascular: Denies chest pain, palpitations or racing heartbeat Respiratory/Chest Respiratory/Chest: Denies cough, dyspnea or sputum Gastrointestinal Gastrointestinal: Denies abdominal pain, constipation, diarrhea, nausea or vomiting Genitourinary Genitourinary ED: Denies dysuria, hematuria or urinary frequency Musculoskeletal Musculoskeletal: Reports back pain; Denies arthralgias, myalgias or neck pain Integumentary Denies abscess, Abrasions or rash Neurologic Neurologic: Denies headache(s), paresthesias or weakness Psychiatric Psychiatric: Denies anxiety, depression, suicidal ideation or suicidal thoughts Endocrine Endocrinology: Denies polydipsia or polyuria EXAM Physical Exam Const Vital Signs: 01/08/23 22:13 01/08/23 23:54 Temperature 97.4 F L Temperature Source Temporal Pulse Rate 100 80 Respiratory Rate 18 16 Blood Pressure 122/77 H Blood Pressure Mean 92 Pulse Ox 100 Oxygen Delivery Method Room Air Positive well nourished General Appearance ED: NAD HEENT Reports moist mucous membranes Eyes PERRL and EOMs intact bilaterally Resp normal respiratory effort Cardio regular rate and regular rhythm Back/Spine Back/Spine Narrative: Tenderness to palpation right lumbar paraspinal musculature. No midline spinal deformity or step-off. Extremity normal to inspection Neuro oriented x3 and no sensory deficits noted Sensorium / Orientation: alert Motor Exam: strength 5/5 throughout Psych mental status grossly normal Skin no rashes or lesions noted MDM MDM MDM Narrative Medical decision making narrative: Patient presenting with lower back pain on the right. Its been going on for about 6 months. Is worse for the last 3 days. No direct trauma. Patient has tried Naprosyn without significant relief. Differential includes lumbar strain. We will obtain the x-ray of the lumbar spine. Patient medicated with Norflex and Toradol. X-rays of lumbar spine on my interpretation show no acute process. Patient still complaining of pain. I will give her some [place], Naprosyn, muscle relaxers for home. She is to alternate these. Return precautions discussed. Impression: 1. Lumbar strain Radiography Diagnostic Testing: Clinical Impression(s) from Imaging Studies Lumbar Spine X-Ray 01/08/23 23:06 IMPRESSION: Unremarkable lumbar spine. If there is persistent clinical concern for spine fracture and this is a trauma patient, recommend dedicated lumbar spine CT. Electronically Signed: Art Fritz MD at 23:23 EDT , Discharge Plan Triage Chief Complaint: Back ED Provider: Chano Morris Dx/Rx/DC Orders Instructions: ED Back Spasm, No Trauma Prescriptions: New naproxen [Naprosyn] 500 mg tablet 500 mg PO BID PRN (Reason: pain) Qty: 20 0RF tizanidine 4 mg tablet 4 mg PO Q8H PRN (Reason: muscle spasticity) Qty: 14 0RF hydrocodone-acetaminophen 5-325 mg tablet 1 tab PO Q6H PRN PRN (Reason: Pain) 3 Days Qty: 12 0RF prednisone 10 mg tablet 40 mg PO DAILY 3 Days Qty: 12 0RF No Action topiramate [Topamax] 25 MG tablet 100 mg PO BID buspirone 10 tablet 10 mg PO PRN PRN (Reason: Anxiety) pantoprazole 40 MG tablet 40 mg PO DAILY naproxen 500 MG tablet 500 mg PO BID Qty: 10 0RF Primary Care Provider: Hawk Reeder Referrals: Hawk Reeder MD [Primary Care Provider] - Disposition Disposition: Home, Self Care Discharge Date/Time: 01/08/23 23:54
[2023-01-08] MEDS: Ketorolac 30 MG/ML Syringe 15 MG IM (22:58)
[2023-01-08] MEDS: Orphenadrine 60 MG/2 ML Ampul IM (23:01)
--- NOTE | 2023-01-08 23:06 | RAD_ITS ---
INDICATION: back pain EXAMINATION/TECHNIQUE: X-RAY - XR Spine Lumbar 2 or 3 Views COMPARISON: No comparison. FINDINGS: 3 views of the lumbar spine. BONES: Normal anatomic alignment without evidence of fracture or subluxation. No concerning bony lesion or abnormal sclerosis to suggest lesion. DISCS/JOINTS: No significant degenerative change. SOFT TISSUES: Unremarkable. RAD/Lumbar Spine 2 or 3 Views IMPRESSION: Unremarkable lumbar spine. If there is persistent clinical concern for spine fracture and this is a trauma patient, recommend dedicated lumbar spine CT. Electronically Signed: Art Fritz MD at 23:23 EDT ,
[2023-01-08] MEDS: HYDROcodone Bitartrate/Apap 5/325 Tablet PO (23:52)
[2023-01-08 23:54] VITALS: PULSE 80; RESP 16
== END 2023-01-08 23:54 | disposition home or self-care (01) ==
PROVIDERS: Emergency Provider Student in an Organized Health Care Education/Training Program; PCP Family Medicine; Visit Provider Student in an Organized Health Care Education/Training Program
DX: S39.012A Strain of muscle, fascia and tendon of lower back, initial encounter (principal); F17.290 Nicotine dependence, other tobacco product, uncomplicated; X58.XXXA Exposure to other specified factors, initial encounter
CPT/HCPCS: 72100; 96372; 99283

== ENCOUNTER 2024-03-14 15:56 | Emergency (ER) | payer BC, SELFPAY ==
[2024-03-14 15:57] VITALS: BP 147/92; PULSE 117; RESP 16; TEMP 36.2; O2SAT 98
--- NOTE | 2024-03-14 17:27 | EX.ED.VIS.HA ---
HPI History of Present Illness Chief Complaint: Headache Detail of Chief Complaint: History of migraines. Left-sided headache like prior migraines. Informant: patient and friend Onset/Context/Timing Onset: Yesterday Context: Gradual Timing: Continuous Quality -Headache: Positive for Similar Prior Headaches Current Severity: Moderate Maximum Severity: Moderate Associated Symptoms/Injury Associated Symptoms: Positive for Nausea and Photophobia; Negative for Fever, Vomiting, Sore Throat, Sinus Pressure, Numbness, Tingling, Preceding Aura, Visual Changes, Blurred Vision or Visual Loss Injury - LEIJA: Negative for Direct Trauma, Fall or Assault Narrative Narrative: 43-year-old female history of migraine headaches. Prior CT and MRI of the brain and been negative. No prior head or neck surgery. States she is one of her migraine headaches began yesterday morning. She denies any fall or trauma. No fever. No sinus congestion. She is not on any blood thinners. She took Benadryl at home without significant relief but it did allow her to sleep. She is on Topamax to try to prevent her migraines. She is not on any blood thinners. She also has a history of PTSD. Prior similar symptoms: Yes Recent Illness/Hospitalization: No PFSH [facility] Medical History PTSD (post-traumatic stress disorder) Migraines GERD (gastroesophageal reflux disease) Home Medications ?Medication ?Instructions ?Recorded ?Last Taken ?Type topiramate 25 mg tablet (Topamax) 100 mg PO BID headache 11/03/17 04/11/19 History buspirone 10 mg tablet 10 mg PO PRN PRN Anxiety 07/25/18 Unknown History pantoprazole 40 mg tablet,delayed 40 mg PO DAILY 04/11/19 04/11/19 History release naproxen 500 mg tablet 500 mg PO BID #10 tabs 07/21/21 Unknown Rx hydrocodone-acetaminophen 5-325mg 1 tab PO Q6H PRN PRN Pain 3 days 01/08/23 Unknown Rx 5mg-325mg #12 TABLETS naproxen 500 mg tablet (Naprosyn) 500 mg PO BID PRN pain #20 tabs 01/08/23 Unknown Rx prednisone 10 mg tablet 40 mg (4 x 10 mg) PO DAILY 3 days 01/08/23 Unknown Rx #12 tabs tizanidine 4 mg tablet 4 mg PO Q8H PRN muscle spasticity 01/08/23 Unknown Rx #14 tabs Allergy/AdvReac Type Severity Reaction Status Date / Time Penicillins Allergy Angioedema Verified 03/14/24 15:59 metoclopramide (From Reglan) AdvReac Other Verified 03/14/24 15:59 Surgical History H/O section History of surgical removal of ganglion cyst Hx of cholecystectomy Hx of appendectomy Social History household members: spouse Smoking Status: Current every day smoker tobacco type: e-cigarettes substance use type: does not use ROS ROS ED ROS Narrative Left-sided headache. Nausea. Constitutional Constitutional ED: Denies chills or fever(s) Eyes Eyes: Denies blurry vision ENT ENT ED: Denies ear pain Cardiovascular Cardiovascular: Denies chest pain Respiratory/Chest Respiratory/Chest: Denies cough Gastrointestinal Gastrointestinal: Reports nausea; Denies abdominal pain, diarrhea, melena or vomiting Genitourinary Genitourinary ED: Denies dysuria or hematuria Musculoskeletal Musculoskeletal: Denies arthralgias Integumentary Denies abscess Neurologic Neurologic: Reports headache(s) Psychiatric Psychiatric: Denies anxiety Endocrine Endocrinology: Denies polydipsia Hematologic/Lymphatic Hematologic/Lymphatic: Denies easy bleeding, easy bruising or lymphadenopathy Allergic/Immunologic Allergic/Immunologic ED: Denies mouth swelling, tongue swelling or urticaria EXAM Physical Exam Narrative Exam Narrative: 43-year-old female vital signs are stable afebrile does not look septic toxic. Sitting upright in a darkened room with her friend at bedside. H EENT exam pupils round react light. Extra motions are intact. Photophobic. No facial droop. No trauma. No tenderness or swelling. No frontal or maxillary sinus tenderness. Normal speech. Neck nontender no meningismus. Able to touch chin to chest. Lungs clear to auscultation bilaterally. Heart tachycardic 110 no murmur. Chest wall and ribs nontender. Abdomen soft nontender. No peritoneal signs. Moving all 4 extremities. 5 out of 5 legal file clerk strength. Dorsi plantarflexion intact. Finger to the nose and [id number] within normal limits. NIH score 0. Awake and alert. Answering questions and following commands. Const Vital Signs: 03/14/24 15:57 Temperature 97.1 F L Temperature Source Temporal Pulse Rate 117 H Respiratory Rate 16 Blood Pressure 147/92 H Blood Pressure Mean 110 Pulse Ox 98 Oxygen Delivery Method Room Air Positive well nourished and well developed; Negative for cachectic, contractures or unkempt General Appearance ED: well developed and NAD; Negative for unkempt, cachectic, contractures, cyanotic, diaphoretic or pallor Nutritional Appearance: Negative for cachectic HEENT Reports normocephalic and moist mucous membranes atraumatic; Negative for trauma, tenderness, temporal artery tenderness or vesicular rash Face and Sinus: Negative for sinus tenderness Eyes PERRL and EOMs intact bilaterally General Eye ED: Negative for pale conjunctiva or scleral icterus Neck no lymphadenopathy, supple, no meningeal signs and no JVD General: Negative for tenderness Resp normal respiratory effort and clear to auscultation bilaterally Effort and Inspection: Negative for retractions Auscultation: Negative for rales, rhonchi, wheezes or diminished lung sounds Cardio regular rate, regular rhythm, S1 normal heart sound, S2 normal heart sound and no murmurs Rate: Negative for bradycardia or tachycardic Rhythm: Negative for abnormal rhythm GI non-tender and non-distended Auscultation: normoactive bowel sounds Palpation: soft; Negative for firm, tender or guarding Back/Spine no CVA tenderness General Back: Negative for CVA tenderness Cervical Spine: Negative for cervical spine tenderness Thoracic Spine / Upper Back: Negative for thoracic spinal tenderness Lumbar Spine / Lower Back: Negative for lumbar spinal tenderness Extremity normal to inspection and full ROM General Extremety ED: Negative for edema or tenderness General Extremity: Negative for edema Neuro oriented x3 and CN's II-XII intact bilaterally Sensorium / Orientation: awake, alert, oriented to person, oriented to place and oriented to time; Negative for orientation impaired, lethargic or stuporous Coordination / Balance: [id number] test normal and [id number] test normal Speech: speech normal Motor Exam: strength 5/5 throughout Comatose: Negative for other Psych mental status grossly normal Appearance: Negative for unkempt Attitude: No agitated Mood & Affect: Negative for depressed, anxious or tearful Skin General Skin Exam: Negative for jaundice or pallor Lesions: no lesions Rashes: no rashes MDM MDM MDM Narrative Medical decision making narrative: 43-year-old female history of migraines with a headache similar to prior migraines. She has had significant imaging including MRI in the past. I do not think she needs imaging today. Has normal neurologic exam. Will be treated with IV fluids, Benadryl, Toradol and Zofran and reassess. History & Record Review Discussion w/independent historian: Patient and Friend Additional record(s) reviewed:: Prior inpatient record, Prior outpatient record, Prior ED visit and Prior labs Discharge Plan Triage Chief Complaint: Headache ED Provider: Mickey Yepez Dx/Rx/DC Orders Prescriptions: No Action topiramate [Topamax] 25 MG tablet 100 mg PO BID buspirone 10 tablet 10 mg PO PRN PRN (Reason: Anxiety) pantoprazole 40 MG tablet 40 mg PO DAILY naproxen 500 MG tablet 500 mg PO BID Qty: 10 0RF naproxen [Naprosyn] 500 mg tablet 500 mg PO BID PRN (Reason: pain) Qty: 20 0RF tizanidine 4 mg tablet 4 mg PO Q8H PRN (Reason: muscle spasticity) Qty: 14 0RF hydrocodone-acetaminophen 5-325 mg tablet 1 tab PO Q6H PRN PRN (Reason: Pain) 3 Days Qty: 12 0RF prednisone 10 mg tablet 40 mg PO DAILY 3 Days Qty: 12 0RF Primary Care Provider: Hawk Reeder Referrals: Hawk Reeder MD [Primary Care Provider] - Print Language: Ecuadorean
[2024-03-14] MEDS: 0.9% Normal Saline (500mL Bag) 500 ML 1000 ML IV (17:47)
[2024-03-14] MEDS: Ketorolac 30 MG/ML Syringe IV (17:48)
[2024-03-14] MEDS: Ondansetron 4 MG/2 ML Vial IV (17:48)
[2024-03-14] MEDS: DiphenhydrAMINE 50 MG/ML Syringe IV (17:48)
[2024-03-14] MEDS: DiphenhydrAMINE 50 MG/ML Syringe 25 MG IV (18:59)
[2024-03-14 19:00] VITALS: BMI 41.6
[2024-03-14 19:57] VITALS: BP 112/80; PULSE 65; RESP 18; O2SAT 98
== END 2024-03-14 20:47 | disposition home or self-care (01) ==
PROVIDERS: Emergency Provider Emergency Medicine; PCP Family Medicine; Visit Provider Emergency Medicine
DX: G43.909 Migraine, unspecified, not intractable, without status migrainosus (principal); F43.10 Post-traumatic stress disorder, unspecified; K21.9 Gastro-esophageal reflux disease without esophagitis; F17.290 Nicotine dependence, other tobacco product, uncomplicated; Z88.0 Allergy status to penicillin; Z79.899 Other long term (current) drug therapy
CPT/HCPCS: 96361; 96374; 96375; 96376; 99282; J7040; A4216; J2405

== ENCOUNTER 2024-03-15 17:47 | Inpatient (IN) | payer SELFPAY ==
[2024-03-15 17:47] VITALS: BP 136/6; PULSE 125; RESP 16; TEMP 37.1; O2SAT 98; BMI 40.0
[2024-03-15 18:02] VITALS: BP 116/75; BP 120/84; BP 123/89; PULSE 109; PULSE 115
--- NOTE | 2024-03-15 18:02 | EKG12_ITS ---
Test Reason : cp Blood Pressure : */* mmHG Vent. Rate : 71 BPM Atrial Rate : 71 BPM P-R Int : 162 ms QRS Dur : 82 ms QT Int : 418 ms P-R-T Axes : 63 54 52 degrees QTcB Int : 454 ms Normal sinus rhythm with sinus arrhythmia Normal ECG When compared with ECG of 15-Mar-2024 18:11, MANUAL COMPARISON REQUIRED DATA IS UNCONFIRMED Confirmed by MAKENZIE SY, CHARLES ([id number]), editor magazine [employer] ([id number]) on 03/18/2024 2:04:20 PM Referred By: Confirmed By: CHARLES BANEGAS MD
--- NOTE | 2024-03-15 18:11 | EKG12_ITS ---
Test Reason : DIZINESS Blood Pressure : */* mmHG Vent. Rate : 118 BPM Atrial Rate : 118 BPM P-R Int : 148 ms QRS Dur : 80 ms QT Int : 326 ms P-R-T Axes : 53 54 49 degrees QTcB Int : 456 ms Sinus tachycardia Otherwise normal ECG Confirmed by SID SY, GER ([id number]), editor managing director CHELSIE BAUMAN ([id number]) on 03/19/2024 8:06:06 A M Referred By: Confirmed By: GER LAU MD
--- NOTE | 2024-03-15 18:13 | ED.VIS.GI ---
HPI HPI - GI History of Present Illness Chief Complaint: GI Bleed Detail of Chief Complaint: Nausea and vomiting yesterday blood per rectum today Informant: patient and spouse/S.O. Abdominal Pain/Flank Pain Onset: Today (Blood per rectum) and Yesterday (Nausea and vomiting) Context: Sudden Onset Timing: Intermittent Quality: Aching Location: LLQ Current Severity: Mild Maximum Severity: Mild Worsened by: Not Worsened By Car ride or Movement Relieved by: Not Relieved By Antacids, Food or Remaining Still Nausea/Vomiting/Emesis GI Symptom: Positive for Nausea and Vomiting (Numerous times last evening, was not bloody or coffee-ground in appearance) Onset: Yesterday Diarrhea/Melena/Hematochezia GI Symptom: Positive for Diarrhea (1 large watery stool. She now states she is passing blood per rectum.) Onset: Today Associated Symptoms Associated Symptoms: Negative for Dysuria, Frequency, Hematuria or Urgency LMP: Patient is sexually active. Menses was 2 weeks ago. She is sexually activ Narrative Narrative: Patient is a 43-year-old woman who is a lesbian. She states last normal menstrual period was 2 weeks ago. She states she is sexually active only with her . Last evening she had nausea and vomited numerous times. She does endorse thirst and dry mouth. She does endorse lightheadedness. Today she developed some fullness left side of her abdomen. She localized to the left lower quadrant. She had 1 loose watery slightly chunky diarrhea. She now is passing blood. She does have a history of hemorrhoids. Do not believe this is due to hemorrhoids. She is on no antithrombotic or anticoagulant. She has no history of bruising easily. She denies bleeding of her gums. Prior similar symptoms: Yes Recent Illness/Hospitalization: Yes (Seen last evening for migraine headache.) [facility] Medical History (Updated 03/15/24 @ 19:[address] Bo Will MD) Tobacco use Morbid obesity Uterine cancer PTSD (post-traumatic stress disorder) Migraines GERD (gastroesophageal reflux disease) Home Medications ?Medication ?Instructions ?Recorded ?Last Taken ?Type topiramate 25 mg tablet (Topamax) 100 mg PO BID headache 11/03/17 04/11/19 History pantoprazole 40 mg tablet,delayed 40 mg PO DAILY 04/11/19 04/11/19 History release sumatriptan succinate 50 mg tablet See Rx Instructions PO .COMPLEX 03/14/24 Unknown Rx (Imitrex) #10 tabs Allergy/AdvReac Type Severity Reaction Status Date / Time Penicillins Allergy Angioedema Verified 03/15/24 17:49 metoclopramide (From Reglan) AdvReac Other Verified 03/15/24 17:49 Surgical History H/O section History of surgical removal of ganglion cyst Hx of cholecystectomy Hx of appendectomy Social History household members: spouse Smoking Status: Current every day smoker tobacco type: e-cigarettes substance use type: does not use ROS ROS ED Constitutional Constitutional ED: Denies chills, fever(s), subjective or sweats ENT ENT ED: Denies rhinorrhea or sore throat Cardiovascular Cardiovascular: Reports racing heartbeat; Denies chest pain, orthopnea, palpitations or paroxysmal nocturnal dyspnea Respiratory/Chest Respiratory/Chest: Denies cough, dyspnea, dyspnea on exertion, orthopnea or paroxysmal nocturnal dyspnea Gastrointestinal Gastrointestinal: Reports abdominal pain, diarrhea, nausea, vomiting and other Details: Hematochezia. Denies hematemesis or coffee-ground emesis. ; Denies constipation or melena Genitourinary Genitourinary ED: Reports other Details: Does endorse decreased urine output. ; Denies dysuria, hematuria or urinary frequency Musculoskeletal Musculoskeletal: Denies arthralgias, back pain or myalgias Neurologic Neurologic: Denies paresthesias or weakness Endocrine Endocrinology: Denies polydipsia, polyphagia or polyuria Hematologic/Lymphatic Hematologic/Lymphatic: Denies easy bleeding or easy bruising EXAM Physical Exam Const Vital Signs: 03/15/24 17:47 03/15/24 18:02 Temperature 98.8 F Temperature Source Oral Pulse Rate 125 H Pulse Rate [Lying] 109 H Pulse Rate [Sitting (for 1 minute prior to obtaining)] 115 H Respiratory Rate 16 Blood Pressure 136/6 H Blood Pressure [Lying] 120/84 H Blood Pressure [Sitting (for 1 minute prior to obtaining)] 123/89 H Blood Pressure [Standing (for 1 minute prior to obtaining)] 116/75 Blood Pressure Mean 49 Blood Pressure Mean [Lying] 96 Blood Pressure Mean [Sitting (for 1 minute prior to obtaining)] 100 Blood Pressure Mean [Standing (for 1 minute prior to obtaining)] 88 Pulse Ox 98 Oxygen Delivery Method Room Air Positive well nourished and well developed Constitutional Narrative: BMI is 40.0. Patient appears ill but not toxic. Vital signs are remarkable for sinus tachycardia. Orthostatic vital signs are negative. General Appearance ED: well developed; Negative for pallor HEENT Reports dry mucous membranes normocephalic and atraumatic Mouth ED: Yes dry mucous membranes Mouth: dry mucous membranes Eyes PERRL and EOMs intact bilaterally General Eye ED: Negative for pale conjunctiva or scleral icterus Neck no lymphadenopathy, supple and no JVD Resp normal respiratory effort and clear to auscultation bilaterally Cardio regular rhythm, S1 normal heart sound, S2 normal heart sound and no murmurs Rate: tachycardic GI non-distended and no masses; Negative for non-tender GI Narrative: Rectal exam reveals sentinel tag. There is no fissures fistulas or hemorrhoids noted. There is no tenderness on rectal exam. There is blood and mucus noted on gloved index finger. Anoscopy was performed. This is documented in the procedure portion of the medical record. Auscultation: hypoactive bowel sounds Palpation: soft, tender LLQ and guarding LLQ; Negative for rigid, hepatomegaly, splenomegaly, hernia, mass, pulsatile mass or rebound tenderness present Back/Spine no CVA tenderness Extremity full ROM General Extremety ED: Negative for edema or tenderness General Extremity: Negative for edema Neuro CN's II-XII intact bilaterally and moves all extremities Sensorium / Orientation: alert Psych mental status grossly normal and thought process normal Skin no wounds General Skin Exam: jaundice; Negative for pallor Lesions: no lesions Rashes: no rashes MDM MDM MDM Narrative Medical decision making narrative: Clinically patient appears dehydrated. Will obtain orthostatics determine if she needs a fluid bolus. IV was established and will run fluids at 258 hours and she is not orthostatic positive. This was ordered even though there is a fluid shortage because she is tachycardic. CBC, BMP and lactate were obtained. With guarding left lower quadrant CT of the abdomen pelvis with IV contrast was ordered. Differential diagnosis would include ischemic colitis, diverticular bleed, inflammatory or infectious colitis history is not consistent with an upper GI bleed. Records from yesterday were reviewed. Patient was typed and screened. History & Record Review Additional record(s) reviewed:: Prior ED visit and Prior labs Lab Data Attestation: I reviewed the patient's lab results. Lab results narrative: Leukocytosis with mild shift. There is no bandemia. Creatinine slightly elevated from baseline at 1.09. Lactate is elevated 2.6. Glucose is normal with normal CO2 anion gap. Labs: Laboratory Results - last 24 hr 03/15/24 18:17 WBC 17.7 H RBC 4.52 Hgb 13.6 Hct 41.1 MCV 90.9 MCH 30.1 MCHC 33.1 RDW Std Deviation 43.5 RDW Coeff of Ronit 13.1 Plt Count 447 MPV 10.1 Immature Gran % (Auto) 0.600 Neut % (Auto) 74.8 H Lymph % (Auto) 19.8 Clark % (Auto) 4.0 Eos % (Auto) 0.6 Baso % (Auto) 0.2 Absolute Neuts (auto) 13.2 H Absolute Lymphs (auto) 3.50 Nucleated RBC % 0 Sodium 133 L Potassium 3.4 L Chloride 101 Carbon Dioxide 25.0 Anion Gap 7 BUN 17 Creatinine 1.09 H Estim Creat Clear Calc 77.31 Est GFR (MDRD) Af Amer 70 Est GFR (MDRD) Non-Af 58 L BUN/Creatinine Ratio 15.6 Glucose 149 H Lactic Acid 2.6 H* Calcium 9.1 Patient apparently had hamburger from [employer] yesterday. Spouse had chicken. There is no known outbreak regarding hamburger meat from any restaurant chain. Always need to consider E. coli. Radiography Diagnostic Testing: Clinical Impression(s) from Imaging Studies Abdomen/Pelvis CT 03/15/24 19:30 IMPRESSION: Probable diffuse large bowel wall thickening suggestive of nonspecific pancolitis. Consider colonoscopy. Is Electronically Signed: Andrew Ibrahim MD at 19:12 EST , With an elevated white count, angioedema to penicillin and guarding with pain colitis and bloody diarrhea will call hospitalist for admission. Dr. Renee could be consulted for outpatient follow-up with colonoscopy. Because of her history of angioedema to penicillin she was treated with a Azactam, metronidazole and vancomycin per order set. Management Discussion w/another healthcare provider: Hospitalist Treatment and Re-Evaluation :: I was informed at 1827 the patient has a low blood pressure is tachycardic. In light of this we will order 1 L of normal saline wide open. Discharge Plan Dx/Rx/DC Orders Clinical Impression: Pancolitis, Bloody diarrhea, Acute dehydration, Sinus tachycardia, Acidosis, lactic, Elevated serum creatinine Disposition Disposition: Acute Care Hospital [facility]
[2024-03-15 18:30] LABS: Absolute Neutrophil Count 13.2 X10^3/uL (2.0-7.7); Basophil# 0.03 X10^3/uL; Basophil% 0.2 % (0-1); Eosinophils% 0.6 % (0-5); Hematocrit 41.1 % (37-47); Hemoglobin 13.6 g/dL (12.0-15.0); Lymphocyte % 19.8 % (19-41); Mean Corp Hgb Conc 33.1 g/dL (32-36); Mean Corpuscular Hgb 30.1 pg (27.0-32.0); Mean Corpuscular Volume 90.9 fL (81-99); Mean Platelet Vol. 10.1 fl (6.2-12.0); NRBC Flagged by Analyzer 0 % (0-5); Neutrophil # 13.22 X10^3/uL (2.7-7.7); Neutrophil % 74.8 % (47-70); Platelet Count 447 K/mm3 (150-450); RBC Distribution Width CV 13.1 % (11.6-14.6); RBC Distribution Width SD 43.5 fl (35.1-43.9); Red Blood Count 4.52 M/mm3 (4.2-5.4); White Blood Count 17.7 K/mm3 (4.4-11.0)
[2024-03-15] MEDS: 0.9% Normal Saline (1000mL) 1,000 ML 1000 ML IV (18:30)
[2024-03-15 18:49] LABS: Anion Gap 7 (5-15); BUN 17 mg/dL (7-18); BUN/Creat Ratio 15.6 RATIO (10-20); Calcium,Total 9.1 mg/dL (8.5-10.1); Chloride 101 mmol/L (98-107); Creatinine, Serum 1.09 mg/dL (0.55-1.02); EST Glomerular Filtration Rate 58 mL/min (>60); Est Glom Filt Rate - Afr Amer 70 mL/min (>60); Estimated Creatinine Clearance 77.31 ml/min; Glucose 149 mg/dL (74-106); Potassium 3.4 mmol/L (3.5-5.1); Sodium Level 133 mmol/L (136-145)
[2024-03-15 18:54] LABS: Lactic Acid 2.6 mmol/L (0.4-1.9)
--- NOTE | 2024-03-15 19:30 | CT_ITS ---
STUDY: CT ABDOMEN AND PELVIS WITH CONTRAST REASON FOR EXAM: Female, 43 years old. Left lower quadrant guarding, bloody watery stools RADIATION DOSAGE (If Supplied By Facility): 6 = ( 16.63 ) mGy, DLP = ( 1215.56 ) mGycm TECHNIQUE: Transaxial images were obtained from the dome of the diaphragm to the symphysis pubis without oral contrast. IV 100mL Isovue-370 was administered. Sagittal and coronal images were reconstructed. Individualized dose optimization techniques were used for this CT. COMPARISON: None. FINDINGS: The visualized lung bases are unremarkable. The visualized portions of the heart are within normal limits. There is hepatomegaly with diffuse hepatic enlargement. There are surgical clips in the gallbladder fossa consistent with a prior cholecystectomy. Normal spleen. Normal pancreas. Normal bilateral adrenal glands. Normal right kidney. Normal left kidney. Evaluation of the GI tract is limited by absence of oral contrast. Cannot exclude stomach wall thickening. No dilated loops of bowel or evidence for obstruction. Cannot exclude segmental thickening of the meredith of the small bowel. Cannot exclude enteritis. Probable diffuse large bowel wall thickening suggestive of nonspecific pancolitis. Consider colonoscopy. Previous appendectomy. Normal abdominal aorta. Normal inferior vena cava. Normal retroperitoneum. Normal urinary bladder. Normal visualized uterus. Small amount of free fluid in the cul-de-sac. Normal abdominal wall. Normal osseous structures. CT/Abdomen/Pelvis W IV Cont ONLY IMPRESSION: Probable diffuse large bowel wall thickening suggestive of nonspecific pancolitis. Consider colonoscopy. Is Electronically Signed: Andrew Ibrahim MD at 19:12 EST ,
[2024-03-15 19:42] VITALS: BP 121/78; PULSE 86; RESP 15; TEMP 36.9; O2SAT 96
--- NOTE | 2024-03-15 19:44 | HP.PCM.HOS_ITS ---
HPI - General General Date of Admission: 03/15/24 Date of Service: 03/15/24 Chief Complaint: Abdominal pain, N/V, diarrhea->now bloody. HPI Narrative The patient is a 43 y/o F w/ PMHx:PTSD, Chronic migraines, GERD, Hx Uterine CA, Tobacco use, recent ED evaluation 03/14/2024 secondary to intractable migraine noted to be left sided similar to previous with nausea as well as photophobia which clinically improved with ED interventions who now represents to the [facility] ED on 03/15/2024 now with history of nausea and emesis starting the day prior with bright red blood per rectum which began suddenly with left lower quadrant aching noted to be mild in nature and intermittent with no improvement with self administration of antacids or food or rest but not worsened by movements with initially 1 large watery stool followed by clots per rectum with no history previously of hemorrhoids and not on any antithrombotic or anticoagulant therapy prompting return to the ED for evaluation. She notes the day prior she had food from [id number] but her spouse also had food from there and has not been ill although they had different meat products. Patient specifically denies having taken any triptan or Maxalt type therapy for her migraine recently. She is currently rating her abdominal discomfort 5/10 in severity, no current nausea, last bloody BM ~ 30 minutes prior she notes. Workup in the ED included T98.8, heart rate 125, BP 120/84, orthostatics negative, respiratory rate 16, 98% on room air, CBC with WBC 17.7, hemoglobin 13.6, platelet 447 with left shift, BMP with sodium 133, potassium 3.4, BUN/creatinine 17/1.09, GFR 58, glucose 149, lactic acid 2.6, type and screen initiated per ED physician, CT abdomen and pelvis with contrast with probable diffuse large bowel wall thickening suggestive of nonspecific pancolitis. In the ED patient administered aztreonam, Flagyl, vancomycin 1 L normal saline. [facility] Medical History Tobacco use Morbid obesity Uterine cancer PTSD (post-traumatic stress disorder) Migraines GERD (gastroesophageal reflux disease) Home Medications ?Medication ?Instructions ?Recorded ?Last Taken ?Type topiramate 25 mg tablet (Topamax) 100 mg PO BID headache 11/03/17 04/11/19 History pantoprazole 40 mg tablet,delayed 40 mg PO DAILY 04/11/19 04/11/19 History release Allergy/AdvReac Type Severity Reaction Status Date / Time Penicillins Allergy Angioedema Verified 03/15/24 17:49 metoclopramide (From Reglan) AdvReac Other Verified 03/15/24 17:49 Family History (Updated 03/15/24 @ 21:[address] Danita Cadena MD) Father Leukemia Mother Varicose veins of bilateral lower extremities with other complications Severe spontaneous bleeding/vessel rupture history. Surgical History H/O section History of surgical removal of ganglion cyst Hx of cholecystectomy Hx of appendectomy Social History (Updated 03/15/24 @ 21:[address] Danita Cadena MD) household members: spouse Smoking Status: Current every day smoker tobacco type: e-cigarettes alcohol intake: never substance use type: does not use ROS ROS Narrative Admission Review of Systems: CONSTITUTIONAL: No weight loss, fever, chills, + weakness or fatigue. HEENT: Eyes: No visual loss, blurred vision, double vision or yellow sclerae. Ears, Nose, Throat: No hearing loss, sneezing, congestion, runny nose or sore throat. SKIN: No rash or itching, lesions, wounds. CARDIOVASCULAR: No chest pain, chest pressure or chest discomfort, palpitations, edema, orthopnea, syncopal events. RESPIRATORY: No shortness of breath, cough or sputum, wheezing, hemoptysis. GASTROINTESTINAL: + anorexia, nausea, vomiting, diarrhea, abdominal pain, BRBPR. No melena. GENITOURINARY: No dysuria, frequency, urgency or retention. NEUROLOGICAL: No headache, dizziness, syncope, paralysis, ataxia, numbness or tingling in the extremities, focal weakness, change in bowel or bladder control, seizure. MUSCULOSKELETAL: + muscle, back pain, joint pain or stiffness. HEMATOLOGIC: No anemia. + Active bleeding as noted. LYMPHATICS: No enlarged nodes. No history of splenectomy. PSYCHIATRIC: + PTSD. ENDOCRINOLOGIC: No reports of sweating, cold or heat intolerance. No polyuria or polydipsia. ALLERGIES: No history of asthma, hives, eczema or rhinitis. Vital Signs Vital Signs Vital Signs: 03/15/24 17:47 03/15/24 18:02 03/15/24 19:42 Temperature 98.8 F 98.4 F Temperature Source Oral Pulse Rate 125 H 86 Pulse Rate [Lying] 109 H Pulse Rate [Sitting (for 1 minute prior to obtaining)] 115 H Respiratory Rate 16 15 Blood Pressure 136/6 H 121/78 H Blood Pressure [Lying] 120/84 H Blood Pressure [Sitting (for 1 minute prior to obtaining)] 123/89 H Blood Pressure [Standing (for 1 minute prior to obtaining)] 116/75 Blood Pressure Mean 49 92 Blood Pressure Mean [Lying] 96 Blood Pressure Mean [Sitting (for 1 minute prior to obtaining)] 100 Blood Pressure Mean [Standing (for 1 minute prior to obtaining)] 88 Pulse Ox 98 96 Oxygen Delivery Method Room Air Weight Weight: 233 lb 4 oz Body Mass Index (BMI) 40.0 Physical Exam Narrative Physical Examination: General: Awake, alert, oriented x 3 and cooperative, seated upright in the ED bed, fatigued, no acute distress but rating her pain 5 out of 10 currently. Skin: Normal color, normal turgor, no icterus, no cyanosis. HEENT: AT/NC, EOMI, PERRLA, dry MM, no carotid bruits or JVD noted. Lungs: Mildly diminished, greater bases, appropriate effort, no rales, ronchi or wheezing. Heart: Tachycardic with regular rhythm; no gallop, rub audible. Abdomen: Soft, generalized discomfort to primarily palpation of the left upper and lower quadrant, no rebound or guarding, no apparent distention, mildly hyperactive BS, no HSM discerned. Extremities: No cyanosis, no clubbing, no marked peripheral edema. Neurological: Patient awake, alert, oriented as noted, cognitive function intact; pupils equally reactive to light and accommodation, cranial nerves grossly normal, moving all 4 extremities, no focal deficits, strength moderately globally decreased secondary to acute presentation complaints Psychiatric: Affect appears fatigued, notes pain ongoing, no acute evidence of depressive or anxiety feelings but does have underlying history of PTSD. Results Lab / Micro Data 03/15/24 18:17 03/15/24 18:17 Labs: Laboratory Results - last 24 hr 03/15/24 18:17: WBC 17.7 H, RBC 4.52, Hgb 13.6, Hct 41.1, MCV 90.9, MCH 30.1, MCHC 33.1, RDW Std Deviation 43.5, RDW Coeff of Ronit 13.1, Plt Count 447, MPV 10.1, Immature Gran % (Auto) 0.600, Neut % (Auto) 74.8 H, Lymph % (Auto) 19.8, [place] % (Auto) 4.0, Eos % (Auto) 0.6, Baso % (Auto) 0.2, Absolute Neuts (auto) 13.2 H, Absolute Lymphs (auto) 3.50, Nucleated RBC % 0, Sodium 133 L, Potassium 3.4 L, Chloride 101, Carbon Dioxide 25.0, Anion Gap 7, BUN 17, Creatinine 1.09 H , Estim Creat Clear Calc 77.31, Est GFR (MDRD) Af Amer 70, Est GFR (MDRD) Non-Af 58 L, BUN/Creatinine Ratio 15.6, Glucose 149 H, Lactic Acid 2.6 H*, Calcium 9.1, Blood Type O POSITIVE, Antibody Screen NEGATIVE Imaging Radiology Impression Abdomen/Pelvis CT 03/15/24 19:30 IMPRESSION: Probable diffuse large bowel wall thickening suggestive of nonspecific pancolitis. Consider colonoscopy. Is Electronically Signed: Andrew Ibrahim MD at 19:12 EST , Assessment & Plan Assessment/Plan (1) Pancolitis: (2) Bloody diarrhea: (3) Acute dehydration: (4) Sinus tachycardia: PLAN: Plan The patient is a 43 y/o F w/ PMHx:PTSD, Chronic migraines, GERD, Hx Uterine CA, Tobacco use, recent ED evaluation 03/14/2024 secondary to intractable migraine noted to be left sided similar to previous with nausea as well as photophobia which clinically improved with ED interventions who now represents to the [facility] ED on 03/15/2024 now with history of nausea and emesis starting the day prior with bright red blood per rectum which began suddenly with left lower quadrant aching noted to be mild in nature and intermittent with no improvement with self administration of antacids or food or rest but not worsened by movements with initially 1 large watery stool followed by clots per rectum with no history previously of hemorrhoids and not on any antithrombotic or anticoagulant therapy prompting return to the ED for evaluation. #1. Acute pancolitis associated Acute GI Bleed, possibly ischemic, diverticular, inflammatory infectious, uncertain with associated lactic acidosis and sinus tachycardia, potentially related with infection but also dehydration with GI losses: Will admit to [facility] given stable vital signs, maintain on aggressive hydration, monitor I&Os, will allow clears if improving but if still intractable N/V will transition to NPO status w/ bowel rest only, cycle H+H, treat with IV Ciprofloxacin and Flagyl given allergy history, IV PPI, anti- emetics, pain regimen PRN. Consider diet advancement to clears in AM if clinically improved. Continue evaluation and treatment and once clinically improves may need to consider outpatient follow-up endoscopy. Cdiff/enteric ordered ped ED physician. Procalcitonin requested. #2. Hyponatremia, mild, suspected hypovolemia: Admission sodium 133, mildly decreased, likely secondary to acute presentation #1, will continue to hydrate and repeat CMP in AM. #3. Hypokalemia: Admission K+ 3.4, magnesium level requested, supplementation given, repeat level in AM. #4. Hyperglycemia, possibly stress response given acute presentation as noted above: Admission glucose 149, hemoglobin A1c requested be cautious. #5. Chronic migraines: We will continue patient home topiramate regimen. Given presentation will attempt to defer Imitrex usage at this time. #6. PTSD: Per current list does not appear to be on any regimen, encourage continued outpatient follow-up and evaluation as previously arranged. #7. Morbid Obesity: Weight loss and lifestyle changes encouraged. #8. Uterine cancer, history of colon patient diagnosed at age 28 status post chemo and radiation with no surgery specifically because she felt too young at that point for full hysterectomy, considered in remission, encouraged continued outpatient follow-up and evaluation.. #9. Tobacco Abuse: Encouraged cessation, inpatient consultation per RT, NR if desired. #10. GERD: As noted will maintain on IV PPI. #11. DVT prophylaxis: SCDs, defer chemoprophylaxis given #1 especially given friability potential. Charges/Coding Visit Charges Inpatient E&M: 05785 Init Hosp L3
--- NOTE | 2024-03-15 19:44 | ED.RN ---
No blood cultures ordered
[2024-03-15] MEDS: Aztreonam 2 GM in 0.9% Normal Saline (100mL MB+) 100 ML IV (19:53)
[2024-03-15 20:30] LABS: Magnesium 2.1 mg/dL (1.6-2.6)
[2024-03-15 20:37] VITALS: BMI 39.8
[2024-03-15 20:44] LABS: Procalcitonin 0.51 ng/mL (0.00-0.09)
[2024-03-15] MEDS: Vancomycin HCl 2,000 MG in 0.9% Normal Saline (500mL Bag) 500 ML 250 MG IV (21:13)
[2024-03-15] MEDS: 0.9% Normal Saline (1000mL) 1,000 ML 999 ML IV (21:13)
[2024-03-15] MEDS: metroNIDAZOLE 500 MG/100 ML BAG 100 MG IV (21:14)
[2024-03-15 21:15] VITALS: BP 132/84; PULSE 79; RESP 18; TEMP 36.7; O2SAT 96
[2024-03-15] MEDS: oxyCODONE 5 MG Tablet PO (21:16)
[2024-03-15] MEDS: Ondansetron 4 MG/2 ML Vial IV (21:16)
[2024-03-15] MEDS: Acetaminophen 325 MG Tablet 650 MG PO (21:16)
[2024-03-15] MEDS: Potassium Chloride Oral Tablet 20 MEQ 40 MEQ PO (21:24)
[2024-03-15] MEDS: Topiramate 100 MG Tablet PO (21:24)
[2024-03-15 22:25] LABS: Reflex Lactate? Y
[2024-03-15] MEDS: 0.9% Saline Lock 10 ML Syringe IV (23:10)
[2024-03-15] MEDS: Morphine 2 MG/ML Syringe IV (23:10)
[2024-03-15 23:19] LABS: Lactic Acid 0.8 mmol/L (0.4-1.9)
[2024-03-15] MEDS: Ciprofloxacin 400 MG/200 ML BAG 200 MG IV (23:20)
[2024-03-15] MEDS: 0.9% Normal Saline (1000mL) 1,000 ML 125 ML IV (23:20)
[2024-03-16] VITALS (8 sets, daily range): BP systolic 80–114; BP diastolic 45–67; PULSE 65–77; RESP 16; TEMP 36.7–36.8; O2SAT 95–98; BMI 39.8
[2024-03-16 00:22] LABS: Hematocrit 33.4 % (37-47); Hemoglobin 10.9 g/dL (12.0-15.0)
[2024-03-16] MEDS: Pantoprazole Sodium 40 MG in 0.9% Normal Saline (100mL MB+) 100 ML 330 MG IV ×3 (00:47→20:58)
[2024-03-16 04:12] LABS: Absolute Lymphocyte Count 3.79 X10^3/uL (0.83-4.51); Absolute Neutrophil Count 8.3 X10^3/uL (2.0-7.7); Basophil# 0.03 X10^3/uL; Basophil% 0.2 % (0-1); Eosinophils% 1.5 % (0-5); Hematocrit 32.4 % (37-47); Hemoglobin 10.7 g/dL (12.0-15.0); Lymphocyte # 3.79 X10^3/ul (0.83-4.51); Lymphocyte % 28.9 % (19-41); Mean Corpuscular Hgb 30.7 pg (27.0-32.0); Mean Corpuscular Volume 93.1 fL (81-99); Mean Platelet Vol. 10.1 fl (6.2-12.0); Monocyte# 0.67 X10^3/uL; Monocyte% 5.1 % (0-10); NRBC Flagged by Analyzer 0 % (0-5); Neutrophil # 8.34 X10^3/uL (2.7-7.7); Neutrophil % 63.8 % (47-70); Platelet Count 340 K/mm3 (150-450); RBC Distribution Width CV 13.3 % (11.6-14.6); RBC Distribution Width SD 45.2 fl (35.1-43.9); Red Blood Count 3.48 M/mm3 (4.2-5.4); White Blood Count 13.1 K/mm3 (4.4-11.0)
[2024-03-16 04:34] LABS: ALB/GLOB Ratio 0.7 RATIO (0.9-2.4); AST(SGOT) 29 U/L (15-37); Alanine Aminotransfer ALT/SGPT 37 U/L (13-56); Albumin, Serum 2.5 g/dL (3.2-5.0); Alkaline Phosphatase 76 U/L (45-117); Anion Gap 3 (5-15); BUN 10 mg/dL (7-18); BUN/Creat Ratio 15.9 RATIO (10-20); Calcium,Total 7.4 mg/dL (8.5-10.1); Chloride 113 mmol/L (98-107); Creatinine, Serum 0.63 mg/dL (0.55-1.02); EST Glomerular Filtration Rate 109 mL/min (>60); Est Glom Filt Rate - Afr Amer 131 mL/min (>60); Estimated Creatinine Clearance 133.34 ml/min; Globulin 3.7 g/dL (2.2-4.2); Glucose 100 mg/dL (74-106); Potassium 3.9 mmol/L (3.5-5.1); Protein, Total 6.2 g/dL (6.4-8.2); Sodium Level 139 mmol/L (136-145)
[2024-03-16] MEDS: Acetaminophen 325 MG Tablet 650 MG PO ×3 (05:10→20:58)
[2024-03-16] MEDS: oxyCODONE 5 MG Tablet PO ×2 (05:11→16:28)
[2024-03-16] MEDS: metroNIDAZOLE 500 MG/100 ML BAG 100 MG IV ×3 (05:16→22:47)
[2024-03-16 07:15] LABS: Hemoglobin A1c 5.3 % (3.8-5.6)
--- NOTE | 2024-03-16 10:01 | PN.HOSP_ITS ---
Subjective Subjective Continues to have somewhat diffuse abdominal pain, CT scan is very mild inflammation of, see very little stranding on imaging Objective Data Objective Data Vital Signs: Vital Signs Temp Pulse Resp BP Pulse Ox O2 Del Method 98.2 F 68 16 84/51 L 97 Room Air 03/16/24 09:48 03/16/24 09:48 03/16/24 09:48 03/16/24 09:48 03/16/24 09:48 03/16/24 09:48 Oxygen Delivery Method Room Air Weight: 231 lb 14.821 oz Body Mass Index (BMI) 39.8 Intake & Output: Intake and Output for Last 24 Hours 03/15/24 03/16/24 03/17/24 03:59 03:59 03:59 Intake Total 3300 / 3300 1220 / 1220 Balance 3300 / 3300 1220 / 1220 Lab / Micro Data 03/16/24 03:55 03/16/24 03:55 Labs: Laboratory Results - last 24 hr 03/15/24 18:17: WBC 17.7 H, RBC 4.52, Hgb 13.6, Hct 41.1, MCV 90.9, MCH 30.1, MCHC 33.1, RDW Std Deviation 43.5, RDW Coeff of Ronit 13.1, Plt Count 447, MPV 10.1, Immature Gran % (Auto) 0.600, Neut % (Auto) 74.8 H, Lymph % (Auto) 19.8, [place] % (Auto) 4.0, Eos % (Auto) 0.6, Baso % (Auto) 0.2, Absolute Neuts (auto) 13.2 H, Absolute Lymphs (auto) 3.50, Nucleated RBC % 0, Sodium 133 L, Potassium 3.4 L, Chloride 101, Carbon Dioxide 25.0, Anion Gap 7, BUN 17, Creatinine 1.09 H , Estim Creat Clear Calc 77.31, Est GFR (MDRD) Af Amer 70, Est GFR (MDRD) Non-Af 58 L, BUN/Creatinine Ratio 15.6, Glucose 149 H, Lactic Acid 2.6 H*, Calcium 9.1, Magnesium 2.1, Procalcitonin 0.51 H, Blood Type O POSITIVE, Antibody Screen NEGATIVE 03/15/24 22:50: Lactic Acid 0.8 03/15/24 23:42: Hgb 10.9 L, Hct 33.4 L 03/16/24 03:55: WBC 13.1 H, RBC 3.48 L, Hgb 10.7 L, Hct 32.4 L, MCV 93.1, MCH 30.7, MCHC 33.0, RDW Std Deviation 45.2 H, RDW Coeff of Ronit 13.3, Plt Count 340, MPV 10.1, Immature Gran % (Auto) 0.500, Neut % (Auto) 63.8, Lymph % (Auto) 28.9, [place] % (Auto) 5.1, Eos % (Auto) 1.5, Baso % (Auto) 0.2, Absolute Neuts (auto) 8.3 H, Absolute Lymphs (auto) 3.79, Nucleated RBC % 0, Sodium 139, Potassium 3.9, Chloride 113 H, Carbon Dioxide 24.0, Anion Gap 3 L, BUN 10, Creatinine 0.63, Estim Creat Clear Calc 133.34, Est GFR (MDRD) Af Amer 131, Est GFR (MDRD) Non-Af 109, BUN/Creatinine Ratio 15.9, Glucose 100, Hemoglobin A1c 5.3, Calcium 7.4 L, Total Bilirubin 0.50, AST 29, ALT 37, Alkaline Phosphatase 76, Total Protein 6.2 L, Albumin 2.5 L, Globulin 3.7, Albumin/Globulin Ratio 0.7 L Micro: Microbiology 03/15/24 19:35 Stool Stool Lactoferrin - Final 03/15/24 19:35 Stool Clostridioides difficile (PCR) - Final Radiography Diagnostic Testing: Radiology Impression Abdomen/Pelvis CT 03/15/24 19:30 IMPRESSION: Probable diffuse large bowel wall thickening suggestive of nonspecific pancolitis. Consider colonoscopy. Is Electronically Signed: Andrew Ibrahim MD at 19:12 EST , Physical Exam Narrative General: Alert, Oriented x3, Cooperative, No apparent distress HEENT: Atraumatic, PERRLA, EOMI, Normocephalic Oral: Moist Mucosa Neck: Supple, No JVD Lungs: Clear to auscultation, Normal air movement, No rhonchi, No wheeze, No rales Cardiovascular: Regular rate, Regular Rhythm, Normal S1, Normal S2, No murmurs Abdomen: Soft, mildly tender, Non-Distended, No Hepato-splenomegaly Extremities: No edema, Capillary Refill Less than 3 Seconds Skin: No rashes, No breakdown Musculoskeletal: No Tenderness to Palpation of Joints or Extremities Neurological: No focal neurological deficits, Motor Exam 5/5 strength throughout, Sensory exam intact to light touch and pain Psych/Mental Status: Normal Affect, Appropriate Assessment & Plan Assessment/Plan (1) Pancolitis: (2) Bloody diarrhea: (3) Acute dehydration: (4) Sinus tachycardia: PLAN: Plan 1. Mild pancolitis with very little inflammatory changes in the abdomen/GERD ? Clear liquid diet ? Continue with some IV fluids as she still has some abdominal pain ? Continue with antibiotics ? Pain management ? If no improvement in the next 24 to 48 hours may need to consult GI for colonoscopy ? Continue with PPI 2. Chronic migraines ? Continue with Topamax ? Stable 3. Uterine cancer, history of colon patient diagnosed at age 28 status post chemo and radiation with no surgery specifically because she felt too young at that point for full hysterectomy, considered in remission, encouraged continued outpatient follow-up and evaluation.. DVT: SCDs Charges/Coding Visit Charges Inpatient E&M: 12962 Subs Hosp L2
[2024-03-16] MEDS: 0.9% Saline Lock 10 ML Syringe IV ×2 (10:47→18:46)
[2024-03-16] MEDS: 0.9% Normal Saline (1000mL) 1,000 ML 100 ML IV ×2 (10:49→21:02)
[2024-03-16] MEDS: Ciprofloxacin 400 MG/200 ML BAG 200 MG IV ×2 (10:55→21:33)
[2024-03-16] MEDS: Topiramate 100 MG Tablet PO ×2 (10:55→21:03)
--- NOTE | 2024-03-16 14:50 | CASEMGMT ---
RN JUANI RHEOLOGIST CM?to room to meet with patient for initial transition planning/care coordination assessment. RN JUANI?introduced self and role at [facility]. Pt voices understanding and consents to assessment?at this time. Pt resting in bed in no distress at this time. @ bedside. Pt is A/O at this time and answers all questions appropriately. Care providers, pharmacy, and demographics verified/updated at this time. PCP: Dr Reeder Specialists: none Preferred Pharmacy: [facility] Insurance: [employer] Prescription Benefit: yes LNOK: Madelyn Living Arrangements: Lives w/ and several other family members in 2-story home w/finished attic. 15 steps to enter home. Pt states no difficulty w/stairs. Independent. Transportation:?Pt states drives self and states no transportation concerns at this time. DME: Denies using any DME and denies needs. HHC/SNF: No hx of either. No needs identified. Pt wishes to return home and states has no concerns with going home at time of discharge. PLAN: Home Carlos Enrique GIBSON RN, CM
--- NOTE | 2024-03-16 14:55 | EKG12_ITS ---
Test Reason : CP Blood Pressure : */* mmHG Vent. Rate : 67 BPM Atrial Rate : 67 BPM P-R Int : 156 ms QRS Dur : 82 ms QT Int : 410 ms P-R-T Axes : 42 52 50 degrees QTcB Int : 433 ms Normal sinus rhythm with sinus arrhythmia Normal ECG When compared with ECG of 16-Mar-2024 15:10, MANUAL COMPARISON REQUIRED DATA IS UNCONFIRMED Confirmed by MAKENZIE SY, CHARLES ([id number]), film and video editor [employer]ILES ([id number]) on 03/18/2024 2:03:31 PM Referred By: Confirmed By: CHARLES BANEGAS MD
[2024-03-16 16:18] LABS: Hematocrit 32.9 % (37-47); Hemoglobin 10.8 g/dL (12.0-15.0)
[2024-03-16] MEDS: Ondansetron 4 MG/2 ML Vial IV (18:46)
[2024-03-17] VITALS (9 sets, daily range): BP systolic 82–102; BP diastolic 51–64; PULSE 61–83; RESP 16–20; TEMP 36.6–36.8; O2SAT 95–98; BMI 39.9
--- NOTE | 2024-03-17 02:29 | PCM.HOSP.N ---
Hospitalist Note Patient BP intermittently low. Similar yesterday. Will administer 500 cc IVF bolus.
[2024-03-17] MEDS: 0.9% Normal Saline (500mL Bag) 500 ML 999 ML IV (02:36)
[2024-03-17] MEDS: Ondansetron 4 MG/2 ML Vial IV ×2 (03:15→17:42)
[2024-03-17] MEDS: 0.9% Saline Lock 10 ML Syringe IV ×5 (03:15→21:33)
[2024-03-17] MEDS: metroNIDAZOLE 500 MG/100 ML BAG 100 MG IV ×3 (05:06→22:04)
[2024-03-17 05:48] LABS: Absolute Lymphocyte Count 2.39 X10^3/uL (0.83-4.51); Absolute Neutrophil Count 5.8 X10^3/uL (2.0-7.7); Basophil# 0.03 X10^3/uL; Basophil% 0.3 % (0-1); Eosinophil# 0.18 X10^3/uL; Hematocrit 31.3 % (37-47); Hemoglobin 9.8 g/dL (12.0-15.0); Lymphocyte # 2.39 X10^3/ul (0.83-4.51); Lymphocyte % 26.3 % (19-41); Mean Corp Hgb Conc 31.3 g/dL (32-36); Mean Corpuscular Hgb 29.6 pg (27.0-32.0); Mean Corpuscular Volume 94.6 fL (81-99); Mean Platelet Vol. 10.3 fl (6.2-12.0); Monocyte# 0.61 X10^3/uL; Monocyte% 6.7 % (0-10); NRBC Flagged by Analyzer 0 % (0-5); Neutrophil # 5.83 X10^3/uL (2.7-7.7); Neutrophil % 64.3 % (47-70); Platelet Count 312 K/mm3 (150-450); RBC Distribution Width CV 13.6 % (11.6-14.6); RBC Distribution Width SD 47.1 fl (35.1-43.9); Red Blood Count 3.31 M/mm3 (4.2-5.4); White Blood Count 9.1 K/mm3 (4.4-11.0)
[2024-03-17 06:04] LABS: Anion Gap 1 (5-15); BUN 4 mg/dL (7-18); BUN/Creat Ratio 6.2 RATIO (10-20); Chloride 118 mmol/L (98-107); Creatinine, Serum 0.64 mg/dL (0.55-1.02); EST Glomerular Filtration Rate 106 mL/min (>60); Est Glom Filt Rate - Afr Amer 128 mL/min (>60); Estimated Creatinine Clearance 131.39 ml/min; Glucose 95 mg/dL (74-106); Potassium 3.8 mmol/L (3.5-5.1); Sodium Level 141 mmol/L (136-145)
[2024-03-17] MEDS: proCHLORPERazine 10 MG/2 ML Vial 5 MG IV (09:34)
[2024-03-17] MEDS: Topiramate 100 MG Tablet PO ×2 (09:34→21:34)
[2024-03-17] MEDS: oxyCODONE 5 MG Tablet PO ×2 (09:34→17:42)
[2024-03-17] MEDS: Acetaminophen 325 MG Tablet 650 MG PO ×2 (09:34→17:42)
[2024-03-17] MEDS: Pantoprazole Sodium 40 MG in 0.9% Normal Saline (100mL MB+) 100 ML 330 MG IV ×2 (09:42→21:33)
[2024-03-17] MEDS: Ciprofloxacin 400 MG/200 ML BAG 200 MG IV ×2 (10:24→23:28)
--- NOTE | 2024-03-17 10:27 | PN.HOSP_ITS ---
Subjective Subjective Still having some abdominal pain but she is tolerating a full liquid diet Objective Data Objective Data Vital Signs: Vital Signs Temp Pulse Resp BP Pulse Ox O2 Del Method 98.3 F 71 16 98/53 L 95 Room Air 03/17/24 09:23 03/17/24 09:23 03/17/24 09:23 03/17/24 09:23 03/17/24 09:23 03/17/24 09:23 Oxygen Delivery Method Room Air Weight: 232 lb 5.875 oz Body Mass Index (BMI) 39.9 Intake & Output: Intake and Output for Last 24 Hours 03/16/24 03/17/24 03/18/24 03:59 03:59 03:59 Intake Total 3300 / 3300 5460 / 5460 1553.33 / 1553.33 Balance 3300 / 3300 5460 / 5460 1553.33 / 1553.33 Lab / Micro Data 03/17/24 04:55 03/17/24 04:55 Labs: Laboratory Results - last 24 hr 03/16/24 16:10: Hgb 10.8 L, Hct 32.9 L 03/17/24 04:55: WBC 9.1, RBC 3.31 L, Hgb 9.8 L, Hct 31.3 L, MCV 94.6, MCH 29.6, MCHC 31.3 L D, RDW Std Deviation 47.1 H, RDW Coeff of Ronit 13.6, Plt Count 312, MPV 10.3, Immature Gran % (Auto) 0.400, Neut % (Auto) 64.3, Lymph % (Auto) 26.3, [place] % (Auto) 6.7, Eos % (Auto) 2.0, Baso % (Auto) 0.3, Absolute Neuts (auto) 5.8, Absolute Lymphs (auto) 2.39, Nucleated RBC % 0, Sodium 141, Potassium 3.8, Chloride 118 H, Carbon Dioxide 23.0, Anion Gap 1 L, BUN 4 L, Creatinine 0.64, Estim Creat Clear Calc 131.39, Est GFR (MDRD) Af Amer 128, Est GFR (MDRD) Non-Af 106, BUN/Creatinine Ratio 6.2 L, Glucose 95, Calcium 8.0 L Micro: Microbiology 03/15/24 19:35 Interface Orders Enteric Bacteriology - Final 03/15/24 19:35 Stool Stool Lactoferrin - Final 03/15/24 19:35 Stool Clostridioides difficile (PCR) - Final Physical Exam Narrative General: Alert, Oriented x3, Cooperative, No apparent distress HEENT: Atraumatic, PERRLA, EOMI, Normocephalic Oral: Moist Mucosa Neck: Supple, No JVD Lungs: Clear to auscultation, Normal air movement, No rhonchi, No wheeze, No rales Cardiovascular: Regular rate, Regular Rhythm, Normal S1, Normal S2, No murmurs Abdomen: Soft, mildly tender, Non-Distended, No Hepato-splenomegaly Extremities: No edema, Capillary Refill Less than 3 Seconds Skin: No rashes, No breakdown Musculoskeletal: No Tenderness to Palpation of Joints or Extremities Neurological: No focal neurological deficits, Motor Exam 5/5 strength throughout, Sensory exam intact to light touch and pain Psych/Mental Status: Normal Affect, Appropriate Assessment & Plan Assessment/Plan (1) Pancolitis: (2) Bloody diarrhea: (3) Acute dehydration: (4) Sinus tachycardia: PLAN: Plan 1. Mild pancolitis with very little inflammatory changes in the abdomen/GERD ? Follow-up liquid diet ? Continue with some IV fluids as she still has some abdominal pain ? Continue with antibiotics ? Pain management ? Will repeat hemoglobin this afternoon and again tomorrow morning if she continues to drop will consult GI for colonoscopy ? Continue with PPI 2. Chronic migraines ? Continue with Topamax ? Stable 3. Uterine cancer, history of colon patient diagnosed at age 28 status post chemo and radiation with no surgery specifically because she felt too young at that point for full hysterectomy, considered in remission, encouraged continued outpatient follow-up and evaluation.. DVT: SCDs Charges/Coding Visit Charges Inpatient E&M: 21248 Subs Hosp L2
[2024-03-17 14:12] LABS: Hematocrit 34.4 % (37-47); Hemoglobin 10.8 g/dL (12.0-15.0)
[2024-03-17 16:47] LABS: Troponin-I HS < 3 pg/mL (3.0-54.0)
[2024-03-18] VITALS (8 sets, daily range): BP systolic 89–118; BP diastolic 47–67; PULSE 64–78; RESP 14–20; TEMP 36.4–36.8; O2SAT 95–99; BMI 41.6
[2024-03-18] MEDS: metroNIDAZOLE 500 MG/100 ML BAG 100 MG IV (05:24)
[2024-03-18 06:58] LABS: Absolute Neutrophil Count 6.6 X10^3/uL (2.0-7.7); Basophil# 0.03 X10^3/uL; Basophil% 0.3 % (0-1); Eosinophil# 0.19 X10^3/uL; Eosinophils% 1.9 % (0-5); Hematocrit 33.4 % (37-47); Hemoglobin 10.6 g/dL (12.0-15.0); Lymphocyte % 23.6 % (19-41); Mean Corp Hgb Conc 31.7 g/dL (32-36); Mean Corpuscular Hgb 29.9 pg (27.0-32.0); Mean Corpuscular Volume 94.4 fL (81-99); Mean Platelet Vol. 10.4 fl (6.2-12.0); Monocyte# 0.54 X10^3/uL; Monocyte% 5.5 % (0-10); NRBC Flagged by Analyzer 0 % (0-5); Neutrophil # 6.63 X10^3/uL (2.7-7.7); Neutrophil % 68.1 % (47-70); Platelet Count 328 K/mm3 (150-450); RBC Distribution Width CV 13.7 % (11.6-14.6); RBC Distribution Width SD 46.7 fl (35.1-43.9); Red Blood Count 3.54 M/mm3 (4.2-5.4); White Blood Count 9.8 K/mm3 (4.4-11.0)
[2024-03-18 07:38] LABS: Anion Gap 6 (5-15); BUN 5 mg/dL (7-18); BUN/Creat Ratio 6.4 RATIO (10-20); Calcium,Total 8.5 mg/dL (8.5-10.1); Chloride 112 mmol/L (98-107); Creatinine, Serum 0.78 mg/dL (0.55-1.02); EST Glomerular Filtration Rate 85 mL/min (>60); Est Glom Filt Rate - Afr Amer 102 mL/min (>60); Estimated Creatinine Clearance 110.46 ml/min; Glucose 107 mg/dL (74-106); Potassium 3.6 mmol/L (3.5-5.1); Sodium Level 140 mmol/L (136-145)
--- NOTE | 2024-03-18 09:20 | PN.HOSP_ITS ---
Reason for Visit Reason for Visit: Diagnoses Dehydration (03/15/24) Ulcerative (chronic) pancolitis without complications (03/15/24) Tachycardia, unspecified (03/15/24) Diarrhea, unspecified (03/15/24) Subjective Subjective Still with abdominal pain. Not eating much. Nrsg unable to get IV. Objective Data Objective Data Vital Signs: Vital Signs Temp Pulse Resp BP Pulse Ox O2 Del Method 36.6 C 71 18 104/60 97 Room Air 03/18/24 08:52 03/18/24 08:52 03/18/24 08:52 03/18/24 08:52 03/18/24 08:52 03/18/24 08:52 Oxygen Delivery Method Room Air Weight: 110 kg Body Mass Index (BMI) 41.6 Intake & Output: Intake and Output for Last 24 Hours 03/16/24 03/17/24 03/18/24 23:59 23:59 23:59 Intake Total 5170 / 5170 4483.33 / 4483.33 200 / 200 Balance 5170 / 5170 4483.33 / 4483.33 200 / 200 Lab / Micro Data 03/18/24 06:23 03/18/24 06:23 Labs: Laboratory Results - last 24 hr 03/17/24 14:00: Hgb 10.8 L, Hct 34.4 L 03/17/24 16:17: Troponin I High Sens < 3 L 03/18/24 06:23: WBC 9.8, RBC 3.54 L, Hgb 10.6 L, Hct 33.4 L, MCV 94.4, MCH 29.9, MCHC 31.7 L, RDW Std Deviation 46.7 H, RDW Coeff of Ronit 13.7, Plt Count 328, MPV 10.4, Immature Gran % (Auto) 0.600, Neut % (Auto) 68.1, Lymph % (Auto) 23.6, [place] % (Auto) 5.5, Eos % (Auto) 1.9, Baso % (Auto) 0.3, Absolute Neuts (auto) 6.6, Absolute Lymphs (auto) 2.30, Nucleated RBC % 0, Sodium 140, Potassium 3.6, Chloride 112 H, Carbon Dioxide 22.0, Anion Gap 6, BUN 5 L, Creatinine 0.78, Estim Creat Clear Calc 110.46, Est GFR (MDRD) Af Amer 102, Est GFR (MDRD) Non-Af 85, BUN/Creatinine Ratio 6.4 L, Glucose 107 H, Calcium 8.5 Micro: Microbiology 03/15/24 19:35 Interface Orders Enteric Bacteriology - Final 03/15/24 19:35 Stool Stool Lactoferrin - Final 03/15/24 19:35 Stool Clostridioides difficile (PCR) - Final Physical Exam Const alert and no apparent distress HEENT head/scalp atraumatic and moist oral mucous membranes Resp normal respiratory effort, no retractions, no use of accessory muscles and clear to auscultation bilaterally Cardio regular rate, regular rhythm, S1 normal heart sound and S2 normal heart sound GI normal to inspection, nondistended, normoactive bowel sounds, soft to palpation and non-tender GI Narrative: Right sided abdominal pain. Extremity normal to inspection and full ROM Assessment & Plan Assessment/Plan (1) Pancolitis: (2) Bloody diarrhea: (3) Acute dehydration: (4) Sinus tachycardia: PLAN: Plan Pancolitis * infectious work up so far negative * abx w ciprofloxacin and metronidazole * no significant improvement. States her son was recently diagnosed with Crohn's disease. * consult GI for input. Difficult IV access * order Midline DVT: SCDs Charges/Coding Visit Charges Inpatient E&M: 85878 Subs Hosp L2
[2024-03-18] MEDS: oxyCODONE 5 MG Tablet PO ×2 (09:34→23:57)
[2024-03-18] MEDS: Acetaminophen 325 MG Tablet 650 MG PO ×3 (09:34→23:57)
[2024-03-18] MEDS: Topiramate 100 MG Tablet PO ×2 (10:52→20:39)
--- NOTE | 2024-03-18 14:38 | CHAPLAIN ---
Type of Pastoral Visit _x__ Initial Visit ___ Follow-up Visit ___ On-call Visit ___ General Patient Visit ___ Spiritual Assessment ___ Family Conference ___ Bereavement ___ Rapid Response ___ Code Blue ___ Other (describe below) Pastoral Care Referral From _x__ Patient ___ Family ___ Nurse ___ Physician ___ Pipe Testing Technician ___ Marketing Planner ___ Other (describe below) Sacrament/Intervention ___ Active listening ___ Anointing ___ Jain ___ Bereavement ___ Communion ___ Jennifer exploration ___ ___ Life review ___ Prayer ___ Reconciliation ___ Sacrament of Sick _x__ Supportive presence ___ Wedding ___ Other (describe below) Pastoral Comments patient is alert and states that she is fine; pt is offered support and presence but she declines any needs or concerns
--- NOTE | 2024-03-18 14:58 | EX.PCM.CON.G ---
HPI Consult Data Date of Consult: 03/18/24 HPI Narrative Reason for Consultation: Bloody diarrhea HPI Narrative: GAVIOTA COOPER, is a 43 F who presents with nausea vomiting and diarrhea. She admits to last evening she had nausea and vomited numerous times. She does endorse thirst and dry mouth. She does endorse lightheadedness. Today she developed some fullness left side of her abdomen. She localized to the left lower quadrant. She had 1 loose watery slightly chunky diarrhea. She now is passing blood. She does have a history of hemorrhoids. She did not believe this is due to hemorrhoids. She is on no antithrombotic or anticoagulant. She has no history of bruising easily. She denies bleeding of her gums. She said that she developed bright red blood per rectum which began suddenly with left lower quadrant aching noted to be mild in nature and intermittent with no improvement with self administration of antacids or food or rest but not worsened by movements with initially 1 large watery stool followed by clots per rectum with no history previously of hemorrhoids and not on any antithrombotic or anticoagulant therapy prompting return to the ED for evaluation. She notes the day prior she had food from [employer] but her spouse also had food from there and has not been ill although they had different meat products. Patient specifically denies having taken any triptan or Maxalt type therapy for her migraine recently. She is currently rating her abdominal discomfort 5/10 in severity, no current nausea, last bloody BM ~ 30 minutes prior she notes. Workup in the ED included T98.8, heart rate 125, BP 120/84, orthostatics negative, respiratory rate 16, 98% on room air, CBC with WBC 17.7, hemoglobin 13.6, platelet 447 with left shift, BMP with sodium 133, potassium 3.4, BUN/creatinine 17/1.09, GFR 58, glucose 149, lactic acid 2.6, CT scan abdomen pelvis: diffuse large bowel wall thickening suggestive of nonspecific pancolitis. Consider colonoscopy. [facility]LY [facility] Medical History Tobacco use Morbid obesity Uterine cancer PTSD (post-traumatic stress disorder) Migraines GERD (gastroesophageal reflux disease) Home Medications ?Medication ?Instructions ?Recorded ?Last Taken ?Type topiramate 25 mg tablet (Topamax) 100 mg PO BID headache 11/03/17 04/11/19 History pantoprazole 40 mg tablet,delayed 40 mg PO DAILY 04/11/19 04/11/19 History release Allergy/AdvReac Type Severity Reaction Status Date / Time Penicillins Allergy Angioedema Verified 03/15/24 17:49 metoclopramide (From Reglan) AdvReac Other Verified 03/15/24 17:49 Family History (Updated 03/15/24 @ 21:[address] Danita Cadena MD) Father Leukemia Mother Varicose veins of bilateral lower extremities with other complications Severe spontaneous bleeding/vessel rupture history. Surgical History H/O section History of surgical removal of ganglion cyst Hx of cholecystectomy Hx of appendectomy Social History (Updated 03/15/24 @ 21:[address] Danita Cadena MD) household members: spouse Smoking Status: Current every day smoker tobacco type: e-cigarettes alcohol intake: never substance use type: does not use ROS ROS Narrative Admission Review of Systems: CONSTITUTIONAL: No weight loss, fever, chills, + weakness or fatigue. HEENT: Eyes: No visual loss, blurred vision, double vision or yellow sclerae. Ears, Nose, Throat: No hearing loss, sneezing, congestion, runny nose or sore throat. SKIN: No rash or itching, lesions, wounds. CARDIOVASCULAR: No chest pain, chest pressure or chest discomfort, palpitations, edema, orthopnea, syncopal events. RESPIRATORY: No shortness of breath, cough or sputum, wheezing, hemoptysis. GASTROINTESTINAL: + anorexia, nausea, vomiting, diarrhea, abdominal pain, BRBPR. No melena. GENITOURINARY: No dysuria, frequency, urgency or retention. NEUROLOGICAL: No headache, dizziness, syncope, paralysis, ataxia, numbness or tingling in the extremities, focal weakness, change in bowel or bladder control, seizure. MUSCULOSKELETAL: + muscle, back pain, joint pain or stiffness. HEMATOLOGIC: No anemia. + Active bleeding as noted. LYMPHATICS: No enlarged nodes. No history of splenectomy. PSYCHIATRIC: + PTSD. ENDOCRINOLOGIC: No reports of sweating, cold or heat intolerance. No polyuria or polydipsia. ALLERGIES: No history of asthma, hives, eczema or rhinitis. Physical Exam Const alert and no apparent distress HEENT head/scalp atraumatic and moist oral mucous membranes Resp normal respiratory effort, no retractions, no use of accessory muscles and clear to auscultation bilaterally GI normal to inspection, nondistended, normoactive bowel sounds and soft to palpation GI Narrative: TTP on left. No rebound. Neuro Sensorium / Orientation: awake and alert Psych affect normal Lab / Micro Data 03/19/24 05:59 03/19/24 05:59 Labs: Laboratory Results - last 24 hr 03/19/24 05:59: WBC 9.8, RBC 3.68 L, Hgb 11.1 L, Hct 34.3 L, MCV 93.2, MCH 30.2, MCHC 32.4, RDW Std Deviation 46.5 H, RDW Coeff of Ronit 13.7, Plt Count 352, MPV 10.5, Immature Gran % (Auto) 0.700, Neut % (Auto) 62.3, Lymph % (Auto) 29.4, Kay % (Auto) 5.1, Eos % (Auto) 2.1, Baso % (Auto) 0.4, Absolute Neuts (auto) 6.1, Absolute Lymphs (auto) 2.89, Nucleated RBC % 0, PT 13.6, INR 1.0, APTT 27.2, Sodium 138, Potassium 3.4 L, Chloride 111 H, Carbon Dioxide 21.0, Anion Gap 5, BUN 4 L, Creatinine 0.82, Estim Creat Clear Calc 105.07, Est GFR (MDRD) Af Amer 96, Est GFR (MDRD) Non-Af 79, BUN/Creatinine Ratio 4.9 L, Glucose 143 H, Calcium 8.8, Total Bilirubin 0.30, Direct Bilirubin 0.11, AST 31, ALT 36, Alkaline Phosphatase 73, Total Protein 6.9, Albumin 3.0 L, Globulin 3.9 03/19/24 06:00: Urine Test Negative Assessment & Plan Assessment/Plan (1) Pancolitis: (2) Bloody diarrhea: (3) Acute dehydration: (4) Sinus tachycardia: PLAN: Plan The patient is a 43 y/o F with bloody diarrhea. Differential diagnosis does include ischemic colitis, also colitis and less likely Crohn's colitis. She will undergo colonoscopy with evaluation of her large bowel and small bowel. She was explained alternatives, risk, benefits include not withstanding bleeding, infection, sepsis, perforation, need for charge and . She will have an ASA of 3. Charges/Coding Visit Charges Inpatient E&M: 24937 Init Hosp L3
[2024-03-18] MEDS: Bisacodyl 5 MG Tablet 20 MG PO (20:40)
[2024-03-18] MEDS: Polyethylene Glycol 3350 BOWEL PREP 1 BOTTLE PO (22:50)
[2024-03-18] MEDS: metroNIDAZOLE 500 MG Tablet PO (23:17)
[2024-03-18] MEDS: Ciprofloxacin 500 MG Tablet PO (23:17)
[2024-03-19] VITALS (10 sets, daily range): BP systolic 92–103; BP diastolic 55–67; PULSE 63–82; RESP 16–18; TEMP 36.4–36.9; O2SAT 93–100; BMI 41.6
[2024-03-19] MEDS: metroNIDAZOLE 500 MG Tablet PO (04:59)
[2024-03-19 06:12] LABS: Internal QC Validated? YES +Cl - CLEAR BKGD; Pregnancy, Urine Negative Negative
[2024-03-19 06:25] LABS: Absolute Lymphocyte Count 2.89 X10^3/uL (0.83-4.51); Absolute Neutrophil Count 6.1 X10^3/uL (2.0-7.7); Basophil# 0.04 X10^3/uL; Basophil% 0.4 % (0-1); Eosinophil# 0.21 X10^3/uL; Eosinophils% 2.1 % (0-5); Hematocrit 34.3 % (37-47); Hemoglobin 11.1 g/dL (12.0-15.0); Lymphocyte # 2.89 X10^3/ul (0.83-4.51); Lymphocyte % 29.4 % (19-41); Mean Corp Hgb Conc 32.4 g/dL (32-36); Mean Corpuscular Hgb 30.2 pg (27.0-32.0); Mean Corpuscular Volume 93.2 fL (81-99); Mean Platelet Vol. 10.5 fl (6.2-12.0); Monocyte% 5.1 % (0-10); NRBC Flagged by Analyzer 0 % (0-5); Neutrophil # 6.11 X10^3/uL (2.7-7.7); Neutrophil % 62.3 % (47-70); Platelet Count 352 K/mm3 (150-450); RBC Distribution Width CV 13.7 % (11.6-14.6); RBC Distribution Width SD 46.5 fl (35.1-43.9); Red Blood Count 3.68 M/mm3 (4.2-5.4); White Blood Count 9.8 K/mm3 (4.4-11.0)
[2024-03-19 06:46] LABS: Anion Gap 5 (5-15); BUN 4 mg/dL (7-18); BUN/Creat Ratio 4.9 RATIO (10-20); Calcium,Total 8.8 mg/dL (8.5-10.1); Chloride 111 mmol/L (98-107); Creatinine, Serum 0.82 mg/dL (0.55-1.02); EST Glomerular Filtration Rate 79 mL/min (>60); Est Glom Filt Rate - Afr Amer 96 mL/min (>60); Estimated Creatinine Clearance 105.07 ml/min; Glucose 143 mg/dL (74-106); Potassium 3.4 mmol/L (3.5-5.1); Sodium Level 138 mmol/L (136-145)
[2024-03-19 07:12] LABS: AST(SGOT) 31 U/L (15-37); Alanine Aminotransfer ALT/SGPT 36 U/L (13-56); Alkaline Phosphatase 73 U/L (45-117); Bilirubin, Direct 0.11 mg/dL (0.00-0.30); Globulin 3.9 g/dL (2.2-4.2); Protein, Total 6.9 g/dL (6.4-8.2)
--- NOTE | 2024-03-19 08:07 | PN.HOSP_ITS ---
Reason for Visit Reason for Visit: Diagnoses Dehydration (03/15/24) Ulcerative (chronic) pancolitis without complications (03/15/24) Tachycardia, unspecified (03/15/24) Diarrhea, unspecified (03/15/24) Subjective Subjective still with abdominal pain. Drinking colon prep. Objective Data Objective Data Vital Signs: Vital Signs Temp Pulse Resp BP Pulse Ox O2 Del Method 36.5 C L 63 16 101/63 97 Room Air 03/19/24 04:55 03/19/24 04:55 03/19/24 04:55 03/19/24 04:55 03/19/24 04:55 03/19/24 04:55 Oxygen Delivery Method Room Air Weight: 110 kg Body Mass Index (BMI) 41.6 Intake & Output: Intake and Output for Last 24 Hours 03/17/24 03/18/24 03/19/24 23:59 23:59 23:59 Intake Total 4483.33 / 4483.33 1600 / 2100 1000 / 1000 Balance 4483.33 / 4483.33 1600 / 2100 1000 / 1000 Lab / Micro Data 03/19/24 05:59 03/19/24 05:59 Labs: Laboratory Results - last 24 hr 03/19/24 05:59: WBC 9.8, RBC 3.68 L, Hgb 11.1 L, Hct 34.3 L, MCV 93.2, MCH 30.2, MCHC 32.4, RDW Std Deviation 46.5 H, RDW Coeff of Ronit 13.7, Plt Count 352, MPV 10.5, Immature Gran % (Auto) 0.700, Neut % (Auto) 62.3, Lymph % (Auto) 29.4, [place] % (Auto) 5.1, Eos % (Auto) 2.1, Baso % (Auto) 0.4, Absolute Neuts (auto) 6.1, Absolute Lymphs (auto) 2.89, Nucleated RBC % 0, Sodium 138, Potassium 3.4 L , Chloride 111 H, Carbon Dioxide 21.0, Anion Gap 5, BUN 4 L, Creatinine 0.82, Estim Creat Clear Calc 105.07, Est GFR (MDRD) Af Amer 96, Est GFR (MDRD) Non-Af 79, BUN/Creatinine Ratio 4.9 L, Glucose 143 H, Calcium 8.8, Total Bilirubin 0.30, Direct Bilirubin 0.11, AST 31, ALT 36, Alkaline Phosphatase 73, Total Protein 6.9, Albumin 3.0 L, Globulin 3.9 03/19/24 06:00: Urine Test Negative Micro: Microbiology 03/15/24 19:35 Interface Orders Enteric Bacteriology - Final 03/15/24 19:35 Stool Stool Lactoferrin - Final 03/15/24 19:35 Stool Clostridioides difficile (PCR) - Final Physical Exam Const alert and no apparent distress HEENT head/scalp atraumatic and moist oral mucous membranes Resp normal respiratory effort, no retractions, no use of accessory muscles and clear to auscultation bilaterally GI normal to inspection, nondistended, normoactive bowel sounds and soft to palpation GI Narrative: TTP on left. No rebound. Neuro Sensorium / Orientation: awake and alert Psych affect normal Assessment & Plan Assessment/Plan (1) Pancolitis: (2) Bloody diarrhea: (3) Acute dehydration: (4) Sinus tachycardia: PLAN: Plan Pancolitis * infectious work up so far negative. Positive fecal leukocytes. * abx w ciprofloxacin and metronidazole * no significant improvement. States her son was recently diagnosed with Crohn's disease. * consult GI colonoscopy today. Difficult IV access * midline DVT: SCDs Charges/Coding Visit Charges Inpatient E&M: 03880 Subs Hosp L2
[2024-03-19 08:50] LABS: Prothrombin Time (Protime)PT. 13.6 SECONDS (11.7-14.9)
[2024-03-19 08:51] LABS: Partial Thromboplast Time 27.2 Seconds (24.1-36.2)
[2024-03-19] MEDS: Pantoprazole Sodium 40 MG in 0.9% Normal Saline (100mL MB+) 100 ML 330 MG IV ×2 (10:36→20:53)
[2024-03-19] MEDS: Ciprofloxacin 400 MG/200 ML BAG 200 MG IV ×2 (11:26→22:37)
--- NOTE | 2024-03-19 11:26 | CASEMGMT ---
Social Work SW spoke w/pt's initially, as pt was sleeping. SW inquired about pt's insurance, as she is now listed as self-pay. Pt's Madelyn explained that they signed up for the [employer] exchange insurance, but it does not start until May 01. They did meet with Anisa and pt signed up for Medicaid, if she does not qualify they will use hospital assist. Pt's is open to resources. SW brought back in resources, pt is awake now, uncomfortable due to the bed. SW provided information for Abby Christopher, [facility] assist, [employer], [facility], and prescription assistance programs. SW remains available for any additional needed resources. FRANCIS Camacho
[2024-03-19] MEDS: Morphine 2 MG/ML Syringe IV (11:39)
--- NOTE | 2024-03-19 14:59 | PRE.ANES_ITS ---
ASA Classification* ASA Classification ASA Classification: 3 Assessment & Plan Anesthesia* Anesthesia Assessment Anesthesia Assessment: Discussed sedation and/or anesthesia options, risks, benefits, and alternatives with patient/parents/legal guardian/POA. Questions invited. The patient/parents/legal guardian/POA seems to understand and agrees to proceed with anesthesia plan. Reviewed the physical assessment, medical history, allergy history and patient home medications list prior to surgery/procedure/anesthetic and documented any changes. Performed airway and anesthesia risk assessments. Anesthesia Type Anesthesia Type: MAC History Source History Obtained from:: Patient and Chart Anesthesia Focused Assessment* Temperature: 98.3 F Pulse Rate: 72 Blood Pressure: 98/61 Respiratory Rate: 16 Pulse Ox: 95 Oxygen Delivery Method: Room Air Airway Assessment Mouth opens: >3 cm Mallampati Score: IV Teeth Condition: Dentures (Patient is upper dentures.) and Missing (Patient has several missing teeth on the bottom. Remainder are tight.) Neck Range of motion (ROM): Limited ROM (Slight decrease in extension) Focused Labs Anesthesia Preop lab: CBC WBC 9.8 K/mm3 (4.4-11.0) 03/19/24 05:59 RBC 3.68 M/mm3 (4.2-5.4) L 03/19/24 05:59 Hgb 11.1 g/dL (12.0-15.0) L 03/19/24 05:59 Hct 34.3 % (37-47) L 03/19/24 05:59 Plt Count 352 K/mm3 (150-450) 03/19/24 05:59 CHEMISTRY Potassium 3.4 mmol/L (3.5-5.1) L 03/19/24 05:59 Sodium 138 mmol/L (136-145) 03/19/24 05:59 Magnesium 2.1 mg/dL (1.6-2.6) 03/15/24 18:17 BUN 4 mg/dL (7-18) L 03/19/24 05:59 Creatinine 0.82 mg/dL (0.55-1.02) 03/19/24 05:59 Glucose 143 mg/dL (74-106) H 03/19/24 05:59 COAG PT 13.6 SECONDS (11.7-14.9) 03/19/24 05:59 Urine Test Negative Negative 03/19/24 06:00 Pre-Assessment Diagnosis/Proposed Procedure Planned Operative Procedure(s): Colonoscopy with possible biopsy and/or polypectomy Anesthesia History Anesthesia History - service attendant cafeteria: Anesthesia History - service attendant cafeteria Hx Hospitalization No 12/10/19 16:01 Any Problems With Anesthesia No 03/19/24 06:57 Cholinesterase deficiency No 03/19/24 06:57 You/Your Family Experience No 03/19/24 06:57 fever (hyperthermia) with Relationship Recent Exposure to Contagious No 03/19/24 06:57 Disease Does patient have nerve No 03/19/24 06:57 stimulator Patient instructed to have No 03/19/24 06:57 device shut off --Does patient have Pacemaker or ICD? When Was Last Pacemaker Check QUESTION #4 FULL TEXT: You/Your Family Experience fever (hyperthermia) with Anesthesia Last Oral Intake Last Oral intake: Last Oral Intake NPO since Meds taken in AM with sips of water? Meds patient instructed to take am of surgery Any additional information?: Yes NPO since: 09:00 (Patient finished prep at 9 AM) PONV PONV - service attendant cafeteria: PONV - service attendant cafeteria Female HX of Motion Sickness HX of N/V After Surgery Non-Smoker Duration of Surgery greater than 60 minutes Number of Risk Factors PONV Score Height & Weight Height & Weight: Anesthesia: Height & Weight Height 5 ft 4 in 03/16/24 09:12 Weight: 110 kg 03/19/24 03:35 Body Mass Index (BMI) 41.6 03/19/24 03:35 Respiratory Assessment Respiratory Assessment - service attendant cafeteria: Respiratory Tract Infection Hx - service attendant cafeteria Hx Respiratory Tract Infection No 03/19/24 06:57 STOP Sleep Apnea STOP Sleep Apnea - service attendant cafeteria: STOP Sleep Apnea - service attendant cafeteria Hx Hypertension No 03/15/24 20:37 Hx Sleep Apnea No 03/15/24 20:37 CPAP BIPAP Do you snore loudly (louder No 03/15/24 20:37 than talking or can be heard Do you often feel tired/ No 03/15/24 20:37 fatigued/ sleepy during daytime? Has anyone observed you stop No 03/15/24 20:37 breathing during sleep? STOP Results Negative 03/15/24 20:37 QUESTION #5 FULL TEXT : Do you snore loudly (louder than talking or can be heard through closed doors)? Tobacco Use History Tobacco Use History - service attendant cafeteria: Tobacco Use History - service attendant cafeteria Tobacco Use Smoking Status Current every day smoker 03/16/24 07:50 Hx Tobacco Use Yes 03/15/24 20:37 Years Smoking Packs Smoked per Day Smoking Cessation Date was within the last 15 years Hx Smoking Cessation Date Hx Smoking Cessation Counseling Hematologic Medial History Hematologic Hx - service attendant cafeteria: Hematologic Medical Hx - inspector repairer sandstone Hx of Blood Transfusion No 03/15/24 20:37 Hx of Transfusion in last 3 No 03/15/24 20:37 Months Date of Last Transfusion (if within last 3 months) Ever experience any problems No 03/15/24 20:37 with transfusion(s)? Specify any problems Hx of Preganancy in last 3 No 03/15/24 20:37 Months Nurse Filling Out Transfusion [id number] 03/15/24 20:37 & Questions: Date: 03/15/24 03/15/24 20:37 Time: 20:40 03/15/24 20:37 Patient unable to answer at this time (ie. confused, unrespo /Reproduction History /Reproductive History - service attendant cafeteria: /Reproductive Hx- service attendant cafeteria Hx Now No 03/19/24 06:57 Gestational Age (in weeks): EDC: Hx Hx Para Hx Section SAB No 03/19/24 06:57 Active Medications Active Medications: Current Medications Generic Name Dose Route Start Last Admin Trade Name Freq PRN Reason Stop Dose Admin Acetaminophen 650 mg 03/15/24 20:36 03/18/24 23:57 Acetaminophen 325 Mg Tablet PO 650 mg Q4H PRN PRN Administration Fever, pain 1-02/07 Al Hydroxide/Mg Hydroxide 30 ml 03/15/24 20:36 Mag Hydrox/Al Hydrox/Simeth 30 Ml Udc PO Q6H PRN PRN Gastric Burning Albuterol Sulfate 2.5 mg 03/15/24 20:36 Albuterol 2.5 Mg/3 Ml Vial.Neb. INHALATION Q2H PRN PRN Dyspnea, wheezing Hydralazine HCl 10 mg 03/15/24 20:36 Hydralazine 20 Mg/Ml Vial IV Q4H PRN PRN SBP > 160 Protocol Pantoprazole Sodium 40 mg/ 110 mls @ 330 mls/hr 11/15/24 22:00 03/19/24 11:02 Sodium Chloride IV Infused Q12 YANCY Infusion Sodium Chloride 500 mls @ 15 mls/hr 03/15/24 20:41 IV .[id number] PRN Saline Flush Sodium Chloride 500 mls @ 15 mls/hr 03/15/24 20:41 IV .[id number] PRN Additional IVPB Infusion Ciprofloxacin 400 mg in 200 mls @ 200 mls/hr 03/19/24 11:20 03/19/24 12:30 Cipro IV Infused Q12 YANCY Infusion Metronidazole 500 mg in 100 mls @ 100 mls/hr 03/19/24 14:00 Flagyl IV Q8 YANCY Morphine Sulfate 2 mg 03/15/24 20:36 03/19/24 11:39 Morphine 2 Mg/Ml Syringe IV 2 mg Q3H PRN PRN Administration Pain Score 6-10 Ondansetron HCl 4 mg 03/15/24 20:36 03/17/24 17:42 Ondansetron 4 Mg/2 Ml Vial IV 4 mg Q8H PRN PRN Administration NAUSEA/VOMITING Oxycodone HCl 5 mg 03/15/24 20:36 03/18/24 23:57 Oxycodone 5 Mg Tablet PO 5 mg Q4H PRN PRN Administration Pain Score 4-10 Prochlorperazine Edisylate 5 mg 03/15/24 20:36 03/17/24 09:34 Prochlorperazine 10 Mg/2 Ml Vial IV 5 mg Q4H PRN PRN Administration Breakthrough Nausea/Vomiting Sodium Chloride 10 - 40 ml 03/15/24 20:41 03/17/24 21:33 0.9% Saline Lock 10 Ml Syringe IV 10 ml UD PRN Administration SALINE FLUSH Temazepam 15 mg 03/15/24 20:36 Temazepam 15 Mg Capsule PO QHS PRN PRN INSOMNIA Topiramate 100 mg 03/15/24 22:00 03/19/24 11:02 Topiramate 100 Mg Tablet PO Not Given BID YANCY PFSH Medical History Tobacco use Morbid obesity Uterine cancer PTSD (post-traumatic stress disorder) Migraines GERD (gastroesophageal reflux disease) Home Medications ?Medication ?Instructions ?Recorded ?Last Taken ?Type topiramate 25 mg tablet (Topamax) 100 mg PO BID headache 11/03/17 04/11/19 History pantoprazole 40 mg tablet,delayed 40 mg PO DAILY 04/11/19 04/11/19 History release Allergy/AdvReac Type Severity Reaction Status Date / Time Penicillins Allergy Angioedema Verified 03/15/24 17:49 metoclopramide (From Reglan) AdvReac Other Verified 03/15/24 17:49 Family History Father Leukemia Mother Varicose veins of bilateral lower extremities with other complications Severe spontaneous bleeding/vessel rupture history. Surgical History H/O section History of surgical removal of ganglion cyst Hx of cholecystectomy Hx of appendectomy Social History household members: spouse Smoking Status: Current every day smoker tobacco type: e-cigarettes alcohol intake: never substance use type: does not use Review of Systems (Anesthesia) ROS Narrative System reviewed and no additional complaints, except as documented.
--- NOTE | 2024-03-19 15:00 | COLBX_PTH ---
PATIENT: GAVIOTA COOPER LOC: [facility] U#:[id number] AGE/SX: 43/F ROOM: [facility] RE03/15/[address]: Dr. Jay Khan DO : 1980 BED: 1 DIS: 03/21/2024 SPEC #: [id number] RECD: 03/19/24 17:34 STATUS: DILSHAD SHERWOOD #: [id number] MEENA: 03/19/24 15:[address]: Landon Renee DEPT: SURGICAL PATHOLOGY RECD BY: Chyna Lantigua ENTERED: 03/20/24 09:33 SP TYPE: COLON BX OTHR DR: MD Dr. Jay Bruce DO Dr. Mark Elderbrock, MD Dr. Nicholas F Kotsonis, MD Tissues: A - Ileum, NOS B - COLON BIOPSY C - Sigmoid colon biopsy Procedures: Surgery Specimen Level IV HEADER OPERATION: Colonoscopy PRE-OP DIAGNOSIS: Bloody diarrhea TISSUE SUBMITTED: A- Terminal ileum biopsy, B- Hepatic flexure biopsy, C- Sigmoid colon biopsy MICROSCOPIC DIAGNOSIS A. Terminal ileum, biopsy: Fragments of small intestinal mucosa, no pathologic diagnosis. B. Hepatic flexure, biopsy: Fragments of colonic mucosa with focal ulceration, acute and chronic inflammation and granulation tissue reaction. See comment. C. Sigmoid colon, biopsy: Fragments of colonic mucosa with mild congestion and hemorrhage. 03/21/2024 COMMENT B. Cryptitis, crypt abscesses, glandular distortion or granulomas are not seen. Correlation with clinical, endoscopic findings and appropriate follow up are necessary. MICROSCOPIC DESCRIPTION Slides are reviewed. GROSS DESCRIPTION A. Received in fixative is one container labeled with the patient's name and designated Terminal ileum biopsy. The specimen consists of multiple irregular fragments of light barrios soft tissue that in aggregate measure 1.2 x 0.4 x 0.1 cm. The specimen is totally submitted in one cassette. B. Received in fixative is one container labeled with the patient's name and designated Hepatic flexure biopsy. The specimen consists of multiple irregular fragments of light barrios soft tissue that in aggregate measure 1.0 x 0.3 x 0.1 cm. The specimen is totally submitted in one cassette. C. Received in fixative is one container labeled with the patient's name and designated Sigmoid colon biopsy. The specimen consists of multiple irregular fragments of light barrios soft tissue that in aggregate measure 0.6 x 0.4 x 0.1 cm. The specimen is totally submitted in one cassette. SJ.mr 03/20/2024 TC:2 CPT:[id number]
--- NOTE | 2024-03-19 15:50 | OP.COLON_ITS ---
Patient Name: Vandana Patel Procedure Date: 03/19/2024 3:19 PM Date of : 1980 Age: 43 Procedure: Colonoscopy Indications: Hematochezia Providers: Landon Renee DO Medicines: Monitored Anesthesia Care Patient Profile: This is a 43 year old female. Refer to note in patient chart for documentation of history and physical. Last Colonoscopy: none. The patient's first colonoscopy is today. Complications: No immediate complications. Procedure: Pre-Anesthesia Assessment: - Prior to the procedure, a History and Physical was performed, and patient medications and allergies were reviewed. The patient is competent. The risks and benefits of the procedure and the sedation options and risks were discussed with the patient. All questions were answered and informed consent was obtained. Patient identification and proposed procedure were verified by the physician in the pre-procedure area. Mental Status Examination: alert and oriented. Airway Examination: normal oropharyngeal airway and neck mobility. Respiratory Examination: clear to auscultation. CV Examination: normal. Prophylactic Antibiotics: The patient does not require prophylactic antibiotics. Prior Anticoagulants: The patient has taken no anticoagulant or antiplatelet agents except for NSAID medication. ASA Grade Assessment: II - A patient with mild systemic disease. After reviewing the risks and benefits, the patient was deemed in satisfactory condition to undergo the procedure. The anesthesia plan was to use monitored anesthesia care (MAC). Immediately prior to administration of medications, the patient was re-assessed for adequacy to receive sedatives. The heart rate, respiratory rate, oxygen saturations, blood pressure, adequacy of pulmonary ventilation, and response to care were monitored throughout the procedure. The physical status of the patient was re-assessed after the procedure. After I obtained informed consent, the scope was passed under direct vision. Throughout the procedure, the patient's blood pressure, pulse, and oxygen saturations were monitored continuously. The Colonoscope was introduced through the anus and advanced to the terminal ileum. The colonoscopy was performed without difficulty. The patient tolerated the procedure well. The quality of the bowel preparation was adequate. The terminal ileum, ileocecal valve, appendiceal orifice, and rectum were photographed. Scope In: 3:35:22 PM Scope Withdrawal Time 0 hours 6 minutes 26 seconds Scope Out: 3:45:01 PM Total Procedure Duration Time 0 hours 9 minutes 39 seconds Findings: The perianal and digital rectal examinations were normal. Patchy moderate inflammation characterized by congestion (edema), erosions, erythema and granularity was found in the sigmoid colon, at the splenic flexure and at the hepatic flexure. Biopsies were taken with a cold forceps for histology. Verification of patient identification for the specimen was done. Estimated blood loss was minimal. A patchy area of the terminal ileum was congested. Several biopsies were obtained with cold forceps for histology in a targeted manner. Verification of patient identification for the specimen was done. Estimated blood loss was minimal. Impression: - Patchy moderate inflammation was found in the sigmoid colon, at the splenic flexure and at the hepatic flexure secondary to colitis. Biopsied. - Congested mucosa in the terminal ileum. - Several biopsies were obtained. Recommendation: - Return patient to [facility] for ongoing care. - Resume regular diet today. - Continue present medications. - Await pathology results. - Repeat colonoscopy in 3 years for surveillance. Procedure Code(s): --- Professional --- 24972, Colonoscopy, flexible; with biopsy, single or multiple CPT copyright 2021 [employer]. All rights reserved. The codes documented in this report are preliminary and upon rock wool insulator review may be revised to meet current compliance requirements. Landon Renee DO 03/19/2024 3:49:44 PM This report has been signed electronically. Number of Addenda: 0 Note Initiated On: 03/19/2024 3:19 PM
--- NOTE | 2024-03-19 15:50 | OP.CCLET_ITS ---
03/19/2024 Hawk Reeder [address] [place] [address] Re : Colonoscopy procedure for Vandana Mendozaorion Dear Dr. Reeder This procedure was performed on Tuesday, March 19, 2024. My impressions and recommendations are as follows: Impressions : - Patchy moderate inflammation was found in the sigmoid colon, at the splenic flexure and at the hepatic flexure secondary to colitis. Biopsied. - Congested mucosa in the terminal ileum. - Several biopsies were obtained. Recommendations : - Return patient to [facility] for ongoing care. - Resume regular diet today. - Continue present medications. - Await pathology results. - Repeat colonoscopy in 3 years for surveillance. My findings are described in the full procedure note, which is enclosed. If I can be of further assistance, please feel free to contact me at . Sincerely, Landon Renee, 03/19/2024 3:49:44 PM This report has been signed electronically.
--- NOTE | 2024-03-19 15:54 | PCM.POST.ANE ---
Anesthesia: Postop Eval I Current Vital Signs Temperature: 98 F Pulse Rate: 82 Blood Pressure: 103/66 Respiratory Rate: 16 Pulse Ox: 94 Oxygen Delivery Method: Room Air Assessment Airway patent: Yes Spontaneous unlabored respirations: Yes Mental status: Asleep nausea: No Vomiting: No Anesthesia Complication: No Fluid Hydration Crystalloid volume administer (ml): 60 Total IV fluid infused: 60 Progress Note Anesthesia document: Postop Eval 1 completed: Yes
[2024-03-19 16:50] LABS: Erythrocyte Sedimentation Rate 33 mm/hr (0-30)
[2024-03-19] MEDS: metroNIDAZOLE 500 MG/100 ML BAG 100 MG IV ×2 (17:04→21:18)
--- NOTE | 2024-03-19 17:32 | PCM.POSTANE2 ---
Anesthesia Postop Eval I Sum Postop Eval Completion status Anesthesia document: Postop Eval 1 completed: Yes Anesthesia Postop Eval I Summary Anesthesia Postop Eval I Summary: Anesthesia Postop Eval I: Assessment Summary Airway patent Yes 03/19/24 15:55 [email or web address] Spontaneous unlabored Yes 03/19/24 15:55 [email or web address] respirations Mental status Asleep 03/19/24 15:55 [email or web address] nausea No 03/19/24 15:55 [email or web address] Vomiting No 03/19/24 15:55 [email or web address] Anesthesia Postop Eval I: Fluid Summary Crystalloid volume administer 60 03/19/24 15:55 [email or web address] (ml) Colloids volume administered ( ml) Blood Product volume administered (ml) Total IV fluid infused 60 03/19/24 15:55 [email or web address] Anesthesia Postop Eval I: Summary Notes Anesthesia Complication No 03/19/24 15:55 [email or web address] Anesthesia Complication Comment: Post-operative progress note Anesthesia: Postop Eval II Evaluation Mental status: Awake Pain Level: 0 nausea: No Vomiting: No
[2024-03-19] MEDS: Topiramate 100 MG Tablet PO (21:20)
[2024-03-20 03:44] VITALS: BP 95/53; PULSE 79; RESP 18; TEMP 36.3; O2SAT 97
[2024-03-20] MEDS: metroNIDAZOLE 500 MG/100 ML BAG 100 MG IV ×3 (05:22→23:11)
[2024-03-20] MEDS: 0.9% Saline Lock 10 ML Syringe IV ×2 (05:23→21:04)
[2024-03-20 06:00] VITALS: BMI 39.7
--- NOTE | 2024-03-20 08:09 | PN.HOSP_ITS ---
Reason for Visit Reason for Visit: Diagnoses Dehydration (03/15/24) Ulcerative (chronic) pancolitis without complications (03/15/24) Tachycardia, unspecified (03/15/24) Diarrhea, unspecified (03/15/24) Subjective Subjective Still with abdominal pain. So far tolerating PO. Objective Data Objective Data Vital Signs: Vital Signs Temp Pulse Resp BP Pulse Ox O2 Del Method 36.3 C L 79 18 95/53 L 97 Room Air 03/20/24 03:44 03/20/24 03:44 03/20/24 03:44 03/20/24 03:44 03/20/24 03:44 03/20/24 07:46 Oxygen Delivery Method Room Air Weight: 105.1 kg Body Mass Index (BMI) 39.7 Intake & Output: Intake and Output for Last 24 Hours 03/18/24 03/19/24 03/20/24 23:59 23:59 23:59 Intake Total 1600 / 2100 2420 / 2420 100 / 100 Balance 1600 / 2100 2420 / 2420 100 / 100 Lab / Micro Data 03/19/24 05:59 03/19/24 05:59 Labs: Laboratory Results - last 24 hr 03/19/24 05:59: ESR 33 H, PT 13.6, INR 1.0, APTT 27.2, C-React Prot Ext Range 18.00 H Micro: Microbiology 03/15/24 19:35 Interface Orders Enteric Bacteriology - Final 03/15/24 19:35 Stool Stool Lactoferrin - Final 03/15/24 19:35 Stool Clostridioides difficile (PCR) - Final Physical Exam Const alert and no apparent distress HEENT head/scalp atraumatic and moist oral mucous membranes Resp normal respiratory effort and no retractions Cardio regular rate, regular rhythm, S1 normal heart sound and S2 normal heart sound GI normal to inspection, nondistended, normoactive bowel sounds GI Narrative: mild TTP, no rebound. Neuro Sensorium / Orientation: awake and alert Assessment & Plan Assessment/Plan (1) Pancolitis: (2) Bloody diarrhea: (3) Acute dehydration: (4) Sinus tachycardia: PLAN: Plan Pancolitis * infectious work up so far negative. Positive fecal leukocytes. * abx w ciprofloxacin and metronidazole * no significant improvement. States her son was recently diagnosed with Crohn's disease. * colonoscopy showed patchy mopderate inflammation was found in the sigmoid colon, splenic flexure and hepatic flexure. Congested mucose in the terminal ileum. Biopsied. Difficult IV access * midline DVT: SCDs Charges/Coding Visit Charges Inpatient E&M: 15256 Subs Hosp L2
[2024-03-20 08:55] VITALS: BP 93/51; PULSE 68; RESP 17; TEMP 36.1; O2SAT 97
[2024-03-20] MEDS: Topiramate 100 MG Tablet PO ×2 (09:04→21:30)
[2024-03-20] MEDS: Pantoprazole Sodium 40 MG in 0.9% Normal Saline (100mL MB+) 100 ML 330 MG IV ×2 (09:05→21:03)
[2024-03-20] MEDS: Ciprofloxacin 400 MG/200 ML BAG 200 MG IV ×2 (09:58→21:32)
[2024-03-20 14:55] VITALS: BP 112/68; PULSE 82; RESP 16; TEMP 36.6; O2SAT 98
[2024-03-20] MEDS: proCHLORPERazine 10 MG/2 ML Vial 5 MG IV (15:52)
--- NOTE | 2024-03-20 17:48 | EX.PCM.PN.GI ---
Subjective Subjective Patient is still having some nausea. Her abdominal pain is a little better. Objective Data Objective Data Vital Signs: Vital Signs Temp Pulse Resp BP Pulse Ox O2 Del Method 97.9 F 82 16 112/68 98 Room Air 03/20/24 14:55 03/20/24 14:55 03/20/24 14:55 03/20/24 14:55 03/20/24 14:55 03/20/24 14:55 Oxygen Delivery Method Room Air Weight: 231 lb 11.293 oz Body Mass Index (BMI) 39.7 Intake & Output: Intake and Output for Last 24 Hours 03/18/24 03/19/24 03/20/24 23:59 23:59 23:59 Intake Total 1599 / 2099 2420 / 2420 990 / 990 Balance 1599 / 2099 2420 / 2420 990 / 990 Lab / Micro Data 03/19/24 05:59 03/19/24 05:59 Micro: Microbiology 03/15/24 19:35 Interface Orders Enteric Bacteriology - Final 03/15/24 19:35 Stool Stool Lactoferrin - Final 03/15/24 19:35 Stool Clostridioides difficile (PCR) - Final Physical Exam Const alert and no apparent distress HEENT head/scalp atraumatic and moist oral mucous membranes Resp normal respiratory effort and no retractions Cardio regular rate, regular rhythm, S1 normal heart sound and S2 normal heart sound GI normal to inspection, nondistended, normoactive bowel sounds GI Narrative: mild TTP, no rebound. Neuro Sensorium / Orientation: awake and alert Assessment & Plan Assessment/Plan (1) Pancolitis: (2) Bloody diarrhea: (3) Acute dehydration: (4) Sinus tachycardia: PLAN: Plan 43 y/o F with past medical history PTSD, Chronic migraines, GERD, Hx Uterine CA, Tobacco use, recent ED evaluation 03/14/2024 secondary to intractable migraine presented to the [facility] ED on 03/15/2024 now with history of nausea and emesis starting the day prior with bright red blood per rectum. She underwent colonoscopy all into the terminal ileum. She was discovered to have intermittent signs of inflammation along with ulcerations seen in the colon. I think is secondary to intestinal migraines resulting in ischemic colitis. Biopsies are pending. Also different diagnosis would be Crohn's disease. Biopsies are pending for that and we are awaiting biochemical workup. I think she is experiencing most nausea secondary to chronic inflammation in her bowels. I will put her on a low-dose Ativan which could be treatment given his Xanax as an outpatient if that helps her nausea. I do not want to give her scopolamine or any other antinausea medicine associated with constipation at this time. If she does well she should be able to be DC'd to the morning. Charges/Coding Visit Charges Inpatient E&M: 33015 Subs Hosp L3
[2024-03-20] MEDS: LORazepam 2 MG/ML Syringe 0.25 MG IV ×2 (18:09→23:21)
[2024-03-20 21:27] VITALS: BP 106/57; PULSE 82; RESP 18; TEMP 36.9; O2SAT 98
[2024-03-21 02:23] VITALS: BMI 39.9
[2024-03-21 03:24] VITALS: BP 104/63; PULSE 79; RESP 18; TEMP 36.7; O2SAT 95
[2024-03-21] MEDS: LORazepam 2 MG/ML Syringe 0.25 MG IV (05:26)
[2024-03-21] MEDS: metroNIDAZOLE 500 MG/100 ML BAG 100 MG IV (05:28)
[2024-03-21 09:02] VITALS: BP 113/70; PULSE 95; RESP 18; TEMP 36.8; O2SAT 96
[2024-03-21] MEDS: Pantoprazole Sodium 40 MG in 0.9% Normal Saline (100mL MB+) 100 ML 330 MG IV (09:17)
[2024-03-21] MEDS: 0.9% Saline Lock 10 ML Syringe IV (09:20)
[2024-03-21] MEDS: Topiramate 100 MG Tablet PO (09:20)
[2024-03-21] MEDS: Ciprofloxacin 400 MG/200 ML BAG 200 MG IV (09:49)
--- NOTE | 2024-03-21 10:42 | DS.PCM_ITS ---
Providers Date of Admission: 03/15/24 Primary Care Physician: Dr. Hawk Reeder MD Consultations 03/18/24 14:04 Consult: Gastroenterology Routine Consulting Provider: [facility] Reason for Consult: colitis EMERGENT Consult: No MD Notified: Yes Date Notified: 03/18/24 Time Notified: 14:05 Method of Notification: Text Reason For Visit: PANCOLITIS, LACTIC ACIDOSIS, SINUS TACHYCARDIA, GI Diagnosis Discharge Diagnosis (1) Pancolitis: Status: Acute Code(s): K51.00 - Ulcerative (chronic) pancolitis without complications (2) Bloody diarrhea: Status: Acute Code(s): R19.7 - Diarrhea, unspecified (3) Acute dehydration: Status: Acute Code(s): E86.0 - Dehydration (4) Sinus tachycardia: Status: Acute Code(s): R00.0 - Tachycardia, unspecified Plan Pancolitis * infectious work up so far negative. Positive fecal leukocytes. * abx w ciprofloxacin and metronidazole, complete * no significant improvement. States her son was recently diagnosed with Crohn's disease. * colonoscopy showed patchy mopderate inflammation was found in the sigmoid colon, splenic flexure and hepatic flexure. Congested mucose in the terminal ileum. Biopsied. * Gastroenterology suspects intestinal migraines. * Patient to follow up with GI for biopsy results. Difficult IV access * midline DVT: SCDs Medications at Discharge Home Medications topiramate 25 mg tablet (Topamax) 100 mg PO BID headache 11/03/17 pantoprazole 40 mg tablet,delayed release 40 mg PO DAILY 04/11/19 acetaminophen 325 mg tablet 1,000 mg (3.0769 x 325 mg) PO Q8H PRN PRN Fever, pain 1-02/07 #0 tabs 03/21/24 alprazolam 0.25 mg tablet (Xanax) 0.25 mg PO TID PRN abdominal cramps #10 tabs 03/21/24 ciprofloxacin HCl 500 mg tablet 500 mg PO Q12H #6 tabs 03/21/24 dicyclomine 10 mg capsule 10 mg PO TID PRN abdominal pain #20 caps 03/21/24 metronidazole 500 mg tablet 500 mg PO Q8H #9 tabs 03/21/24 ondansetron 4 mg disintegrating tablet 4 mg PO Q6H PRN nausea and vomiting #20 tabs 03/21/24 Hospital Course Operations None Procedures Colonoscopy and EGD Summary of Care Provided Minutes Spent on Discharge: 35 Hospital Course: Patient presents with abdominal pain and was found to have colitis on CT. Patient underwent colonoscopy that did show evidence of colitis. Patient was started on empiric antibiotics from the [facility] and has not had any significant improvement. Patient endorses that she has a son who has diagnosis of Crohn's. Dr. Renee, gastroenterology, suspect the patient may have intestinal migraines that may be the cause of this. The biopsies will give a more definitive answer which will be available for several more days. Patient will follow-up with gastroenterology for those results and additional treatment plans. Patient will complete her antibiotics though it is not convincing patient had infectious colitis. Dr. Renee recommending alprazolam for the abdominal migraines. Physical Exam Const Constitutional Narrative: up in bed. Non-toxic. Afebrile. Slight left sided abdominal pain. Weight / BMI Weight Weight: 105.4 kg Body Mass Index (BMI) 39.9 ABG / Lab / Microbiology Data 03/19/24 05:59 03/19/24 05:59 Microbiology: Microbiology 03/15/24 19:35 Interface Orders Enteric Bacteriology - Final 03/15/24 19:35 Stool Stool Lactoferrin - Final 03/15/24 19:35 Stool Clostridioides difficile (PCR) - Final D/C Instructions Discharge Diet: No restrictions DC O2, CPAP, BIPAP Needs Additional Home O2 Discharge instructions: No DC home with Oxygen: No Meaningful Use Info Meaningful Use Meaningful Use Diagnoses (Choose all that apply): None applicable Ischemic Stroke Statin Dosing Therapy Reference: STATIN DOSE THERAPY REFERENCE: * Patients > 75 years receive moderate or high dose statin therapy. * Patients 75 years or YOUNGER should receive HIGH intensity statin dose unless contraindicated. You will be required to document reason for non-treatment if statin daily dose does not meet guidelines. HIGH DOSE STATIN THERAPY DAILY Atorvastatin > than or = to 40 mg Rosuvastatin > than or = to 20 mg Amlodipine + Atorvastatin > than or = to 2.5/40 mg Ezetimibe + Simvastatin 10/80 mg Simvastatin 80mg Discharge Plan Admission Admit Date/Time: 03/15/24 19:46 Primary Reason for Your Visit: Colitis. Attending Provider: Jay Khan Primary Care Provider: Hawk Reeder Consulting Providers: Danita Cadena; Alex Wolfe Instructions Additional Instructions / Restrictions: Follow up with Dr. Renee for the results of your colon biopsies. Notify your physician(s) or return to the ED if your abdominal pain is worse. Discharge Orders/Prescriptions Prescriptions: New acetaminophen 325 mg Tablet 1,000 mg PO Q8H PRN PRN (Reason: Fever, pain 1-02/07) Qty: 0 0RF ondansetron 4 mg tablet,disintegrating 4 mg PO Q6H PRN (Reason: nausea and vomiting) Qty: 20 0RF ciprofloxacin HCl 500 mg tablet 500 mg PO Q12H Qty: 6 0RF metronidazole 500 mg tablet 500 mg PO Q8H Qty: 9 0RF alprazolam [Xanax] 0.25 mg tablet 0.25 mg PO TID PRN (Reason: abdominal cramps) Qty: 10 0RF dicyclomine 10 mg capsule 10 mg PO TID PRN (Reason: abdominal pain) Qty: 20 0RF Continued topiramate [Topamax] 25 MG tablet 100 mg PO BID pantoprazole 40 MG tablet 40 mg PO DAILY Referrals / Follow Up: Hawk Reeder MD [Primary Care Provider] - Within 2 Weeks Landon Renee DO [Med Staff - Active Staff] - Within 2 Weeks Disposition Disposition (needs filled in before D/C Order can be placed): Home, Self Care Charges/Coding Visit Charges Inpatient E&M: 01269 Disch Hosp >30min
--- NOTE | 2024-03-21 12:05 | CASEMGMT ---
Patient has order for discharge. RN CM in to discuss needs at discharge. Patient denies needs or help at discharge. Patient had no further questions or concerns.
[2024-03-21 13:08] LABS: Anti-Centromere B Ab <0.2 AI (0.0-0.9); Anti-Chromatin <0.2 AI (0.0-0.9); Anti-Jo <0.2 AI (0.0-0.9); Anti-Scleroderma-70 AB <0.2 AI (0.0-0.9); Anti-dsDNA Ab <1 IU/mL (0-9); RNP Ab 0.7 AI (0.0-0.9); SJOGREN'S Anti-SS-A test < 0.2 AI (0.0-0.9); SJOGREN'S Anti-SS-B test < 0.2 AI (0.0-0.9); Smith Ab <0.2 AI (0.0-0.9)
[2024-03-21 13:28] VITALS: BP 115/77; PULSE 84; RESP 16; TEMP 36.6; O2SAT 96
[2024-03-21 14:10] LABS: IgG, Quant 1353 mg/dL (586-1602); Immunoglobulin G, Subclass 1 810 mg/dL (248-810); Immunoglobulin G, Subclass 2 229 mg/dL (130-555); Immunoglobulin G, Subclass 3 89 mg/dL (15-102); Immunoglobulin G, Subclass 4 25 mg/dL (2-96)
[2024-03-22 16:10] LABS: Alpha-1-Globulins 0.2 g/dL (0.0-0.4); Alpha-2-Globulins 0.8 g/dL (0.4-1.0); Cytoplasmic Ab (C-ANCA) <1:20 titer (Neg:<1:20); Gamma Globulin 1.4 g/dL (0.4-1.8); Immunoglobulin A 133 mg/dL (87-352); Immunoglobulin G 1356 mg/dL (586-1602); Immunoglobulin M 112 mg/dL (26-217); PROEL- TOTAL PROTEIN 6.3 g/dL (6.0-8.5); Perinuclear Ab (P-ANCA) <1:20 titer (Neg:<1:20)
[2024-03-25 15:07] LABS: ACCA 6 units (0-90); ALCA 5 units (0-60); AMCA 9 units (0-100); gASCA 12 units (0-50)
[2024-03-26 14:10] LABS: Anti-Cardiolipin Ab, IgG, Qn < 9 GPL U/mL (0-14); Anti-Cardiolipin Ab, IgM, Qn < 9 MPL U/mL (0-12); Anti-Thrombin 3 AG, Immunol 68 % (72-124); Antithrombin 3 Function 89 % (75-135); Beta-2-Glycoprotein I IgA <9 (0-25); Beta-2-Glycoprotein I IgG <9 (0-20); Beta-2-Glycoprotein I IgM <9 (0-32); Protein C Antigen 89 % (60-150); Protein C, Functional 118 % (73-180)
[2024-03-26 16:10] LABS: Beef <0.10 kU/L (Class 0); Chocolate <0.10 kU/L (Class 0); Codfish <0.10 kU/L (Class 0); Corn <0.10 kU/L (Class 0); Egg, Whole <0.10 kU/L (Class 0); Milk (Cow) <0.10 kU/L (Class 0); Mussels <0.10 kU/L (Class 0); Peanut <0.10 kU/L (Class 0); Pork <0.10 kU/L (Class 0); Salmon <0.10 kU/L (Class 0); Shrimp <0.10 kU/L (Class 0); Soybean <0.10 kU/L (Class 0); Tuna <0.10 kU/L (Class 0); Wheat <0.10 kU/L (Class 0)
== END 2024-03-21 13:47 | disposition home or self-care (01) | DRG 386 ==
LOC: ED 19:35 → PCU 19:53
PROVIDERS: Family Medicine; Internal Medicine Gastroenterology; Admitting Provider Family Medicine; Emergency Provider Emergency Medicine; PCP Family Medicine
PROC: 0DJD8ZZ Inspection of Lower Intestinal Tract, Via Natural or Artificial Opening Endoscopic (ICD-10-PCS; CPT 45378; principal; 2024-03-19 14:55)
DX: K51.011 Ulcerative (chronic) pancolitis with rectal bleeding (principal); E87.1 Hypo-osmolality and hyponatremia; Z68.41 Body mass index [BMI] 40.0-44.9, adult; E66.01 Morbid (severe) obesity due to excess calories; F17.290 Nicotine dependence, other tobacco product, uncomplicated; K21.9 Gastro-esophageal reflux disease without esophagitis; G43.709 Chronic migraine without aura, not intractable, without status migrainosus; E86.1 Hypovolemia; E86.0 Dehydration; E87.6 Hypokalemia; G43.D0 Abdominal migraine, not intractable; R00.0 Tachycardia, unspecified; R73.9 Hyperglycemia, unspecified; F43.10 Post-traumatic stress disorder, unspecified; Z88.0 Allergy status to penicillin; Z80.0 Family history of malignant neoplasm of digestive organs; Z87.19 Personal history of other diseases of the digestive system; Z85.42 Personal history of malignant neoplasm of other parts of uterus; Z90.49 Acquired absence of other specified parts of digestive tract; Z79.899 Other long term (current) drug therapy
CPT/HCPCS: 36415; 74177; 80048; 80053; 80076; 81025; 81240; 81241; 82784; 82787; 83036; 83516; 83605; 83630; 83735; 84145; 84165; 84484; 85014; 85018; 85025; 85300; 85301; 85302; 85303; 85610; 85652; 85730; 86003; 86005; 86036; 86037; 86140; 86146; 86147; 86225; 86235; 86334; 86671; 86850; 86900; 86901; 87493; 87506; 88305; 93005; 94668; 97802; 99252; 99285; 99406; J7030; J7040; Q9967; A4216; G0463; J0744; J2405